=== PATIENT | female | born 1985 | race Caucasian/White ===

== ENCOUNTER → 2016-05-08 | Outpatient (CLI) | payer BC ==
[~2016-05-08] MED LIST: ACHYD1T PO; DCS100C PO; HYOS0.1217 PO; IBP800T PO; NAPR500T PO; ONDAN4ODT PO; PREN1TAB39 PO; SULF1TAB38 PO
--- OUTSIDE RECORDS SUMMARY | 2016-05-08 16:06 | XMS REPORT | Continuity of Care Document ---
Author Author [facility] Organization [facility] Address Unknown Phone Unavailable Allergies Active Description Code Type Severity Reaction Onset Reported/Identified Relationship to Patient Clinical Status Yes Penicillins [id number] Drug Allergy Unknown N/A 02/23/2008 Medications Problems Date Dx Coded Attending Type Code Diagnosis Diagnosed By 08/24/2011 Ot 644.13 THREAT LABOR NEC-ANTEPAR 09/06/2011 Ot 427.31 ATRIAL FIBRILLATION 09/06/2011 Ot 642.41 MILD/NOS PREECLAMP-DELIV 09/06/2011 Ot 648.62 CV DIS NEC-DELIVER W P/P 09/06/2011 Ot 654.21 PREV DELIVRY W/ OR W/O MENT ANT 09/06/2011 Ot V06.4 IAH-QJJJVP-UQERJ-RUBELLA 09/06/2011 Ot V27.0 DELIVER-SINGLE LIVEBORN 05/07/2012 Ot 558.9 NONINF GASTROENTERIT NEC 05/07/2012 Ot 599.0 URIN TRACT INFECTION NOS 05/07/2012 Ot 787.03 VOMITING ALONE 10/10/2014 RBANDIE DOWLING MD Ot 719.43 JOINT PAIN-FOREARM 10/10/2014 BRANDIE DOWLING MD Ot 727.04 RADIAL STYLOID TENOSYNOV 12/17/2014 REECE WELSH DO Ot M25.562 12/27/2014 REECE WELSH DO Ot M25.562 04/08/2015 REECE WELSH DO Ot M25.562 04/08/2015 REECE WELSH DO Ot M25.562 04/11/2015 GLORIA PEOPLES APRN Ot N28.1 04/21/2015 GLORIA PEOPLES APRN Ot N28.1 10/31/2015 REECE WELSH DO Ot M25.562 PAIN IN LEFT KNEE 10/31/2015 GLORIA PEOPLES APRN Ot N28.1 CYST OF KIDNEY, ACQUIRED 12/03/2015 REECE WELSH DO Ot M25.562 PAIN IN LEFT KNEE 12/03/2015 GLORIA PEOPLES APRN Ot N28.1 CYST OF KIDNEY, ACQUIRED 05/08/2016 REECE WELSH DO Ot M25.562 PAIN IN LEFT KNEE 05/08/2016 GLORIA PEOPLES APRN Ot N28.1 CYST OF KIDNEY, ACQUIRED Procedures Code Description Performed By Performed On 72.9 09/04/2011 74.1 09/04/2011 Results Encounters ACCT No. Visit Date/Time Discharge Status Pt. Type Provider Facility Loc./Unit Complaint [id number] 12/08/2014 14:31:00 2014 23:59:59 CLS Outpatient REECE WELSH DO [facility] RAD LT KNEE PAIN [id number] 10/10/2014 16:40:00 2014 17:04:00 DIS Emergency NITESH WARREN, BRANDIE Romo [facility] ER RIGHT WRIST SORENESS [id number] 05/08/2016 16:03:00 ACT Outpatient GLORIA PEOPLES APRN [facility] RAD HEAD TRAUMA [id number] 04/08/2015 10:45:00 ACT Outpatient GLORIA PEOPLES APRN [facility] RAD ABD PAIN [id number] 05/06/2012 23:41:00 Document Registration [id number] 09/04/2011 09:30:00 Document Registration [id number] 08/24/2011 11:42:00 Document Registration
--- NOTE | 2016-05-08 16:36 | Diagnostic Imaging Report ---
PROCEDURE: CT head without contrast. TECHNIQUE: Multiple contiguous axial images were obtained through the brain without the use of intravenous contrast. INDICATION: Far on playground with the left side of head 4 days prior. Severe headache with nausea and vomiting. Left ear pain. COMPARISON: None FINDINGS: There is no midline shift or mass effect. The ventricles and sulci are unremarkable. No evidence for acute intracranial hemorrhage, abnormal extra-axial fluid collections or cerebral edema is present. The basilar cisterns are unremarkable. The visualized paranasal sinuses and mastoid air cells are clear. The bony calvarium is intact. IMPRESSION: Negative appearing noncontrast CT of the head. Dictated by: Dictated on workstation # [id number]
== END ==
LOC: RAD 16:03
PROVIDERS: ATTEND Nurse Practitioner Family
DX: S09.90XA Unspecified injury of head, initial encounter (principal); R51 Headache; X58.XXXA Exposure to other specified factors, initial encounter; Y99.8 Other external cause status
CPT/HCPCS: 70450

== ENCOUNTER → 2017-02-08 | Outpatient (CLI) | payer BC ==
[~2017-02-08] MED LIST changes: +NAPR-1071 PO; -NAPR500T PO
--- NOTE | 2017-02-08 15:04 | Diagnostic Imaging Report ---
INDICATION: Left knee pain x4 weeks. Twisted while dancing. FINDINGS: Nonweightbearing images show joint space to be well preserved. Articulating surfaces are smooth. The patella is in good alignment with the trochlea. There are no fractures. No hypertrophic bony changes noted. There does appear to be some joint effusion. IMPRESSION: No bony abnormalities. Dictated by: Dictated on workstation # [id number]
== END ==
LOC: RAD 14:26
PROVIDERS: ATTEND Nurse Practitioner Family
DX: M25.562 Pain in left knee (principal); X50.1XXA Overexertion from prolonged static or awkward postures, initial encounter; Y93.41 Activity, dancing
CPT/HCPCS: 73562

== ENCOUNTER → 2017-02-15 | Outpatient (CLI) | payer BC ==
--- NOTE | 2017-02-15 19:14 | Diagnostic Imaging Report ---
EXAMINATION: Magnetic resonance imaging of the left knee without intravenous contrast DATE: 02/15/2017. COMPARISON: Left knee radiographs 02/08/2017. MRI left knee 12/08/2014. INDICATION: 32-year-old female, left knee pain. 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 TECHNIQUE: Multiplanar, multisequence non contrast enhanced MR imaging was accomplished. FINDINGS: MENISCI: The medial meniscus is intact. The lateral meniscus is intact. LIGAMENTS AND TENDONS: The anterior and posterior cruciate ligaments are intact. The medial collateral ligament is intact. The iliotibial band, mid third lateral capsular ligament, fibular collateral ligament, biceps femoris tendon and conjoined tendon are intact. The quadriceps tendon and patella ligament are intact. JOINT: There is a full-thickness cartilage defect of the lateral patellar facet cartilage measuring approximately 6 mm in transverse dimension and estimated at approximately 6 mm in craniocaudal dimension. There is a fissure of the cartilage of the median patellar ridge. The cartilage of the femoral trochlea is grossly intact. Medial and lateral compartment cartilage is grossly intact. There is no knee joint effusion, intra-articular body, or prominent synovitis. BONE: There is unremarkable bone marrow signal. Specifically, negative for fracture, osteomyelitis, osteonecrosis, or marrow replacing process. BURSAE AND SOFT TISSUES: There is minimal fluid in the popliteal fossa without sizable Orosco's cyst. IMPRESSION: 1. 6 x 6 mm full-thickness cartilage defect of the lateral patellar facet. No knee joint effusion, intra-articular body, or prominent synovitis. The cartilage defect is also seen on comparison MRI of 12/08/2014 and appears unchanged in extent. 2. Intact medial and lateral meniscus. 3. Intact anterior and posterior cruciate ligaments. Additional ligaments and tendons are intact. 4. No acute fracture or bone contusion. Dictated by: Dictated on workstation # [id number]
== END ==
LOC: RAD 18:08
PROVIDERS: ATTEND Nurse Practitioner Family
DX: S89.92XA Unspecified injury of left lower leg, initial encounter (principal); M94.8X8 Other specified disorders of cartilage, other site; X50.0XXA Overexertion from strenuous movement or load, initial encounter; Y93.41 Activity, dancing
CPT/HCPCS: 73721

== ENCOUNTER 2017-03-05 08:49 | Inpatient (IN) | payer BC ==
[2017-03-05] VITALS (7 sets, daily range): BP systolic 89–113; BP diastolic 72–86
[~2017-03-05] VITALS: Ht 170.2 cm; Wt 98.8 kg
--- OUTSIDE RECORDS SUMMARY | 2017-03-05 08:54 | XMS REPORT | Continuity of Care Document ---
Author Author [facility] Organization [facility] Address Unknown Phone Unavailable Allergies Active Description Code Type Severity Reaction Onset Reported/Identified Relationship to Patient Clinical Status Yes Penicillins [id number] Drug Allergy Unknown N/A 02/23/2008 Medications There is no data. Problems Date Dx Coded Attending Type Code Diagnosis Diagnosed By 08/24/2011 Ot 644.13 THREAT LABOR NEC-ANTEPAR 09/06/2011 Ot 427.31 ATRIAL FIBRILLATION 09/06/2011 Ot 642.41 MILD/NOS PREECLAMP-DELIV 09/06/2011 Ot 648.62 CV DIS NEC- DELIVER W P/P 09/06/2011 Ot 654.21 PREV DELIVRY W/ OR W/O MENT ANT 09/06/2011 Ot V06.4 VAC-MEASLE- MUMPS-RUBELLA 09/06/2011 Ot V27.0 DELIVER- SINGLE LIVEBORN 05/07/2012 Ot 558.9 NONINF GASTROENTERIT NEC 05/07/2012 Ot 599.0 URIN TRACT INFECTION NOS 05/07/2012 Ot 787.03 VOMITING ALONE 10/10/2014 NITESH WARREN, BRANDIE Romo Ot 719.43 JOINT PAIN-FOREARM 10/10/2014 BRANDIE DOWLING [...] APRN Ot N28.1 CYST OF KIDNEY, ACQUIRED 05/09/2016 GLORIA PEOPLES APRN Ot R51 HEADACHE 05/09/2016 GLORIA PEOPLES APRN Ot S09.90XA UNSPECIFIED INJURY OF HEAD, INITIAL ENCO 05/09/2016 GLORIA PEOPLES APRN Ot X58.XXXA EXPOSURE TO OTHER SPECIFIED FACTORS, INI 05/09/2016 GLORIA PEOPLES APRN Ot Y99.8 OTHER EXTERNAL CAUSE STATUS 05/11/2016 GLORIA PEOPLES COMMERCIAL INSULATOR Ot R51 HEADACHE 05/11/2016 GLORIA PEOPLES APRN Ot S09.90XA UNSPECIFIED INJURY OF HEAD, INITIAL ENCO 05/11/2016 GLORIA PEOPLES APRN Ot X58.XXXA EXPOSURE TO OTHER SPECIFIED FACTORS, INI 05/11/2016 GLORIA PEOPLES APRN Ot Y99.8 OTHER EXTERNAL CAUSE STATUS 05/14/2016 GLORIA PEOPLES APRN Ot R51 HEADACHE 05/14/2016 GLORIA PEOPLES APRN Ot S09.90XA UNSPECIFIED INJURY OF HEAD, INITIAL ENCO 05/14/2016 GLORIA PEOPLES APRN Ot X58.XXXA EXPOSURE TO OTHER SPECIFIED FACTORS, INI 05/14/2016 GLORIA PEOPLSE APRN Ot Y99.8 OTHER EXTERNAL CAUSE STATUS 05/14/2016 GLORIA PEOPLES COMMERCIAL INSULATOR Ot R51 HEADACHE 05/14/2016 GLORIA PEOPLES APRN Ot S09.90XA UNSPECIFIED INJURY OF HEAD, INITIAL ENCO 05/14/2016 GLORIA PEOPLES APRN Ot X58.XXXA EXPOSURE TO OTHER SPECIFIED FACTORS, INI 05/14/2016 GLORIA PEOPLES APRN Ot Y99.8 OTHER EXTERNAL CAUSE STATUS 05/14/2016 GLORIA PEOPLES APRN Ot R51 HEADACHE 05/14/2016 GLORIA PEOPLES APRN Ot S09.90XA UNSPECIFIED INJURY OF HEAD, INITIAL ENCO 05/14/2016 GLORIA PEOPLES APRN Ot X58.XXXA EXPOSURE TO OTHER SPECIFIED FACTORS, INI 05/14/2016 GLORIA PEOPLES COMMERCIAL INSULATOR Ot Y99.8 OTHER EXTERNAL CAUSE STATUS 05/30/2016 GLORIA PEOPLES COMMERCIAL INSULATOR Ot R51 HEADACHE 05/30/2016 GLORIA PEOPLES COMMERCIAL INSULATOR Ot S09.90XA UNSPECIFIED INJURY OF HEAD, INITIAL ENCO 05/30/2016 GLORIA PEOPLES APRN Ot X58.XXXA EXPOSURE TO OTHER SPECIFIED FACTORS, INI 05/30/2016 GLORIA PEOPLES APRN Ot Y99.8 OTHER EXTERNAL CAUSE STATUS 05/31/2016 REECE WELSH DO Ot M25.562 PAIN IN LEFT KNEE 05/31/2016 GLORIA PEOPLES APRN Ot N28.1 CYST OF KIDNEY, ACQUIRED 05/31/2016 GLORIA PEOPLES APRN Ot R51 HEADACHE 05/31/2016 GLORIA PEOPLES APRN Ot S09.90XA UNSPECIFIED INJURY OF HEAD, INITIAL ENCO 05/31/2016 GLORIA PEOPLES APRN Ot X58.XXXA EXPOSURE TO OTHER SPECIFIED FACTORS, INI 05/31/2016 GLORIA PEOPLES APRN Ot Y99.8 OTHER EXTERNAL CAUSE STATUS 02/17/2017 MISSY YAP Ot M94.8X8 OTHER SPECIFIED DISORDERS OF CARTILAGE, 02/17/2017 MISSY YAP Ot S89.92XA UNSPECIFIED INJURY OF LEFT LOWER LEG, IN 02/17/2017 MISSY YAP Ot X50.0XXA OVEREXERTION FROM STRENUOUS MOVEMENT OR 02/17/2017 MISSY YAP Ot Y93.41 ACTIVITY, DANCING 02/20/2017 MISSY YAP Ot M25.562 PAIN IN LEFT KNEE 02/20/2017 MISSY YAP Ot X50.1XXA OVEREXERTION FROM PROLONGED STATIC OR AW 02/20/2017 MISSY YAP Ot Y93.41 ACTIVITY, DANCING Procedures Code Description Performed By Performed On 72.9 09/04/2011 74.1 09/04/2011 Results There is no data. Encounters ACCT No. Visit Date/Time Discharge Status Pt. Type Provider Facility Loc./Unit Complaint [id number] 02/15/2017 18:08:00 02/15/2017 23:59:59 CLS Outpatient MISSY YAP [facility] RAD KNEE PAIN [id number] 02/08/2017 14:26:00 02/08/2017 23:59:59 CLS Outpatient MISSY YAP [facility] RAD L KNEE PAIN [id number] 05/08/2016 16:03:00 05/08/2016 23:59:59 CLS Outpatient GLORIA PEOPLES APRN [facility] RAD HEAD TRAUMA [id number] 04/08/2015 10:45:00 04/08/2015 23:59:59 CLS Outpatient GLORIA PEOPLES COMMERCIAL INSULATOR [facility] RAD ABD PAIN [id number] 12/08/2014 14:31:00 12/08/2014 23:59:59 CLS Outpatient REECE WELSH DO [facility] RAD LT KNEE PAIN [id number] 10/10/2014 16:40:00 10/10/2014 17:04:00 DIS Emergency NITESH WARREN, BRANDIE Romo [facility] ER RIGHT WRIST SORENESS [id number] 05/06/2012 23:41:00 Document Registration [id number] 09/04/2011 09:30:00 Document Registration [id number] 08/24/2011 11:42:00 Document Registration
[2017-03-05 09:15] LABS: BASOPHILS # (AUTO) 0.1 10^3/uL (0.0-0.1); BASOPHILS % (AUTO) 0 % (0-10); EOSINOPHILS # (AUTO) 0.3 10^3/uL (0.0-0.3); EOSINOPHILS % (AUTO) 2 % (0-10); HEMATOCRIT 50 % (35-52); LYMPHOCYTES # (AUTO) 4.1 X 10^3 (1.0-4.0); LYMPHOCYTES % (AUTO) 27 % (12-44); MEAN CORPUSCULAR HEMOGLOBIN 33 PG (25-34); MEAN CORPUSCULAR HGB CONC 36 G/DL (32-36); MEAN CORPUSCULAR VOLUME 90 FL (80-99); MEAN PLATELET VOLUME 10.1 FL (7.4-10.4); MONOCYTES # (AUTO) 1.3 X 10^3 (0.0-1.0); MONOCYTES % (AUTO) 8 % (0-12); NEUTROPHILS # (AUTO) 9.6 X 10^3 (1.8-7.8); NEUTROPHILS % (AUTO) 63 % (42-75); PLATELET COUNT 452 10^3/uL (130-400); RED BLOOD COUNT 5.53 10^6/uL (4.35-5.85); RED CELL DISTRIBUTION WIDTH 12.1 % (10.0-14.5); WHITE BLOOD COUNT 15.2 10^3/uL (4.3-11.0)
[2017-03-05] MEDS ORDERED: DILTIAZEM 25 MG/5 ML INJ (CARDIZEM) VIAL IVP ONE (09:15)
[2017-03-05] MEDS ORDERED: DILTIAZEM IV FOR DRIP 125 MG in NS (IVPB) 100 ML IV SCH (09:15)
[2017-03-05 09:28] LABS: INR 1.1 (0.8-1.4); PROTHROMBIN TIME PATIENT 14.1 SEC (12.2-14.7)
[2017-03-05 09:38] LABS: ALBUMIN 4.9 GM/DL (3.2-4.5); CALCIUM 9.9 MG/DL (8.5-10.1); CREATININE SERUM 1.13 MG/DL (0.60-1.30); MAGNESIUM 2.2 MG/DL (1.8-2.4); POTASSIUM 4.2 MMOL/L (3.6-5.0); TOTAL PROTEIN 8.4 GM/DL (6.4-8.2)
[2017-03-05 09:39] LABS: BAND NEUTROPHILS 1 %; BASOPHILS % (MANUAL) 0 %; EOSINOPHILS % (MANUAL) 1 %; LYMPHOCYTES % (MANUAL) 28 %; MONOCYTES % (MANUAL) 11 %; NEUTROPHILS % (MANUAL) 59 %; RBC MORPH NORMAL
--- NOTE | 2017-03-05 09:39 | Diagnostic Imaging Report ---
CLINICAL INDICATION: Patient with shortness of air, palpitations since yesterday afternoon. EXAM: Portable chest x-ray, upright view. COMPARISON: None. FINDINGS: There are ill-defined borders of the right heart border and slightly involving the left heart border. There is a slight increase in airspace opacities and blurring of the bilateral perihilar regions, right side more than the left. There is no pleural effusion or pneumothorax. The pulmonary vasculature and cardiac silhouette are within normal limits. The bones show no significant abnormality. IMPRESSION: 1. There is loss of right and left heart border shadows with increased perihilar opacities. These findings may be related to lung infiltrates or atelectasis. Chest x-rays, PA and lateral views, with good inspiratory effort would be suggested for better evaluation. 2. Otherwise, the remainder of this exam is unremarkable. Dictated by: Dictated on workstation # [id number]
[2017-03-05 09:40] LABS: MYOGLOBIN SERUM 72.6 NG/ML (10.0-92.0)
[2017-03-05 09:52] LABS: TSH (THYROID ANALYZER) 5.23 UIU/ML (0.35-4.94)
[2017-03-05 10:27] LABS: FREE T4 (FREE THYROXINE) 0.91 NG/DL (0.70-1.48)
--- NOTE | 2017-03-05 10:49 | Diagnostic Imaging Report ---
INDICATION: Possible infiltrates. Followup. COMPARISON: Earlier the same day FINDINGS: Frontal and lateral views of the chest demonstrate normal heart size and pulmonary vascularity. The lungs are clear. There are no signs of infiltrate, pleural effusions or pneumothoraces. The visualized osseous structures show no acute abnormalities. IMPRESSION: 1. No acute process. Questionable pericardial infiltrates are likely artifact and related to mild pectus deformity. Dictated by: Dictated on workstation # [id number]
[2017-03-05] MEDS ORDERED: NS IV 1000 ML 1,000 ML IV ONE (11:17)
--- NOTE | 2017-03-05 11:19 | ED Cardiac General ---
History of Present Illness General Chief Complaint: Cardiac/General Problems Stated Complaint: IRREG HEARTBEAT,WEAKNESS Nursing Triage Note: pt reports palpitations and soa since yesterday at 1600. pt reports she is worse since 1999 yesterday. pt reports she went to [facility] [address] and was referred here. pt reports no cardiac hx or previous similar episodes. Source: patient Exam Limitations: no limitations History of Present Illness Time seen by provider: 08:55 Initial Comments This 32-year-old woman presents to the emergency room with rapid heart rate, fatigue, lightheadedness, and shortness of breath that started last night. She had some mild chest discomfort that she identified as indigestion last night. She has atrial flutter with rapid ventricular response on the monitor. She has no history of arrhythmia or other cardiac abnormalities. Allergies and Home Medications Allergies Coded Allergies: Penicillins (Verified Allergy, Unknown, 02/23/08) Home Medications No Active Prescriptions or Reported Meds Review of Systems Constitutional: see HPI EENTM: No Symptoms Reported Respiratory: See HPI Cardiovascular: See HPI Gastrointestinal: No Symptoms Reported Genitourinary: No Symptoms Reported Musculoskeletal: no symptoms reported Skin: no symptoms reported Psychiatric/Neurological: No Symptoms Reported Endocrine: No Symptoms Reported Hematologic/Lymphatic: No Symptoms Reported Past Xnpqxxk-Ghtjck-Mmumoi Hx Patient Social History Alcohol Use: Denies Use Recreational Drug Use: No Smoking Status: Never a Smoker 2nd Hand Smoke Exposure: No Recent Foreign Travel: No Contact w/Someone Who Travel: No Recent Infectious Disease Expo: No Recent Hopitalizations: No (Childbirth 2007) Seasonal Allergies Seasonal Allergies: No Surgeries History of Surgeries: Yes ( section 2007) Surgeries: Section, Orthopedic Respiratory History of Respiratory Disorde: No Cardiovascular History of Cardiac Disorders: Yes (PRE-ECLAMPSIA WITH BOTH PREGNANCIES) Neurological History of Neurological Disord: No Reproductive System Hx Reproductive Disorders: No Sexually Transmitted Disease: No Genitourinary History of Genitourinary Disor: No Gastrointestinal History of Gastrointestinal Di: No Musculoskeletal History of Musculoskeletal Dis: No Endocrine History of Endocrine Disorders: No HEENT History of HEENT Disorders: No Cancer History of Cancer: No Psychosocial History of Psychiatric Problem: No Integumentary History of Skin or Integumenta: No Blood Transfusions History of Blood Disorders: No Physical Exam Vital Signs Vital Sign - Last 12Hours 03/05/17 03/05/17 09:04 09:40 Temp 97.4 Pulse 140 Resp 10 B/P (MAP) 122/78 (93) Pulse Ox 100 O2 Delivery Room Air Capillary Refill : Less Than 3 Seconds General Appearance: No Apparent Distress, WD/WN HEENT: PERRL/EOMI, Normal ENT Inspection Neck: Normal Inspection Respiratory: Lungs Clear, Normal Breath Sounds, No Accessory Muscle Use, No Respiratory Distress Cardiovascular: No Edema, No Murmur, Irregularly Irregular, Tachycardia Gastrointestinal: Normal Bowel Sounds, Non Tender, Soft Extremity: Normal Inspection, No Pedal Edema Neurologic/Psychiatric: Alert, Oriented x3, No Motor/Sensory Deficits, Normal 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, 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 as Tested Skin: Normal Color, Warm/Dry Progress/Results/Core Measures Results/Orders Lab Results Laboratory Tests Test 03/05/17 08:29 03/05/17 08:59 Range/Units C-Reactive Protein High Sensitivity 0.18 0.00-0.50 MG/DL White Blood Count 15.2 H 4.3-11.0 10^3/uL Red Blood Count 5.53 4.35-5.85 10^6/uL Hemoglobin 18.0 H 11.5-16.0 G/DL Hematocrit 50 35-52 % Mean Corpuscular Volume 90 80-99 FL Mean Corpuscular Hemoglobin 33 25-34 PG Mean Corpuscular Hemoglobin Concent 36 32-36 G/DL Red Cell Distribution Width 12.1 10.0-14.5 % Platelet Count 452 H 130-400 10^3/uL Mean Platelet Volume 10.1 7.4-10.4 FL Neutrophils (%) (Auto) 63 42-75 % Lymphocytes (%) (Auto) 27 12-44 % Monocytes (%) (Auto) 8 0-12 % Eosinophils (%) (Auto) 2 0-10 % Basophils (%) (Auto) 0 0-10 % Neutrophils # (Auto) 9.6 H 1.8-7.8 X 10^3 Lymphocytes # (Auto) 4.1 H 1.0-4.0 X 10^3 Monocytes # (Auto) 1.3 H 0.0-1.0 X 10^3 Eosinophils # (Auto) 0.3 0.0-0.3 10^3/uL Basophils # (Auto) 0.1 0.0-0.1 10^3/uL Neutrophils % (Manual) 59 % Lymphocytes % (Manual) 28 % Monocytes % (Manual) 11 % Eosinophils % (Manual) 1 % Basophils % (Manual) 0 % Band Neutrophils 1 % Blood Morphology Comment NORMAL Prothrombin Time 14.1 12.2-14.7 SEC INR Comment 1.1 0.8-1.4 Activated Partial Thromboplast Time 31 24-35 SEC Sodium Level 141 135-145 MMOL/L Potassium Level 4.2 3.6-5.0 MMOL/L Chloride Level 103 98-107 MMOL/L Carbon Dioxide Level 22 21-32 MMOL/L Anion Gap 16 H 5-14 MMOL/L Blood Urea Nitrogen 16 7-18 MG/DL Creatinine 1.13 0.60-1.30 MG/DL Estimat Glomerular Filtration Rate 56 BUN/Creatinine Ratio 14 Glucose Level 111 H 70-105 MG/DL Calcium Level 9.9 8.5-10.1 MG/DL Magnesium Level 2.2 1.8-2.4 MG/DL Total Bilirubin 1.0 0.1-1.0 MG/DL Aspartate Amino Transf (AST/SGOT) 23 5-34 U/L Alanine Aminotransferase (ALT/SGPT) 23 0-55 U/L Alkaline Phosphatase 65 40-136 U/L Myoglobin 72.6 10.0-92.0 NG/ML Troponin I 0.57 *H <0.30 NG/ML Total Protein 8.4 H 6.4-8.2 GM/DL Albumin 4.9 H 3.2-4.5 GM/DL Free Thyroxine 0.91 0.70-1.48 NG/DL TSH [place] Testing 5.23 H 0.35-4.94 UIU/ML Serum Test, Qualitative NEGATIVE NEGATIVE My Orders Orders - SAURABH GILL MD Cbc With Automated Diff (03/05/17 09:05) Magnesium (03/05/17 09:05) Chest 1 View, Ap/Pa Only (03/05/17 09:05) Ekg Tracing (03/05/17 09:05) Cardiac Profile 1 (03/05/17 09:05) Comprehensive Metabolic Panel (03/05/17 09:05) Myoglobin Serum (03/05/17 09:05) Protime With Inr (03/05/17 09:05) Partial Thromboplastin Time (03/05/17 09:05) O2 (03/05/17 09:05) Monitor-Rhythm Ecg Trace Only (03/05/17 09:05) Lipid Panel (03/06/17 06:00) Saline Lock/Iv-Start (03/05/17 09:05) Thyroid Analyzer (03/05/17 09:05) Ns (Ivpb) (Sodium C... W/Diltiazem Iv Fo (03/05/17 09:15) Diltiazem Injection (Cardizem Injection) (03/05/17 09:15) Hcg,Qualitative Serum (03/05/17 09:16) Manual Differential (03/05/17 08:59) Free T4 (Free Thyroxine) (03/05/17 08:59) Chest Pa/Lat (2 View) (03/05/17 10:29) Hs C Reactive Protein (03/05/17 10:29) Ns Iv 1000 Ml (Sodium Chloride 0.9%) (03/05/17 11:17) Digoxin Injection (Lanoxin Injection) (03/05/17 12:00) Apixaban Tablet (Eliquis Tablet) (03/05/17 12:00) Medications Given in ED Current Medications Medications Dose Ordered Sig/Paige Route Start Time Stop Time Status Last Admin Dose Admin Apixaban 5 mg ONCE ONCE PO 03/05/17 12:00 03/05/17 12:01 DC 03/05/17 12:42 5 MG Diltiazem HCl 10 mg ONCE ONCE IVP 03/05/17 09:15 03/05/17 09:16 DC 03/05/17 09:37 10 MG Sodium Chloride 1,000 ml @ 0 mls/hr Q0M ONCE IV 03/05/17 11:17 03/05/17 11:19 DC 03/05/17 11:54 0 MLS/HR Vital Signs/I&O Vital Sign - Last 12Hours 03/05/17 03/05/17 09:04 09:40 Temp 97.4 98.0 Pulse 140 162 Resp 10 12 B/P (MAP) 122/78 (93) 144/89 Pulse Ox 100 94 O2 Delivery Room Air Blood Pressure Mean: 107 Progress Note #1: Time: 11:29 Progress Note Cardizem bolus followed by a drip were administered. Drip has been titrated up to 20 mg per hour. Patient still remains tachycardic with heart rate in the 140s. Systolic blood pressure is 110. Workup demonstrated leukocytosis and questionable infiltrate on chest x-ray. A repeat two-view chest x-ray was obtained at the recommendation of the radiologist. No infiltrates were appreciated on the two-view. A CRP was also added to help rule out infection. CRP was unremarkable. At present I am awaiting calls back from Dr. Adair and Dr. Pacheco. Progress Note #2: Time: 12:[address] Adair has been to the emergency room to assess the patient. He requested Brendan 0.5 mg IV be administered as well as Eliquis 5 mg by mouth. Patient will be admitted to the ICU. Cardizem drip is to be continued. Progress Note #3: Time: 13:04 Progress Note Patient converted to a junctional rhythm with a rate of 69. Systolic blood pressures dropped into the 90s. Case was reviewed again with Dr. Adair who recommends stopping the Cardizem drip and administering Cardizem cd 240 mg now and daily. Eliquis has been administered. Patient will be admitted to the cardiac step down unit. Digoxin 0.5 mg had been ordered previously but that will order was canceled and patient converted to a junctional rhythm. ECG Initial ECG Impression Date: Mar 05, 2017 Initial ECG Impression Time: 08:59 Initial ECG Rate: 144 Initial ECG Rhythm: A Fib/Flutter Comment Atrial flutter with RVR EKG : EKG Time: 12:48 Rate: 69 Comment Junctional rhythm with no ST elevation or depression. This is a change from prior atrial flutter. Diagnostic Imaging Diagonstic Imaging: Xray Plain Films/CT/US/NM/MRI: chest Comments NAME: DEL HERNANDEZ [facility] REC#: [id number] PT STATUS: REG ER : 1985 PHYSICIAN: SAURABH GILL MD ADMIT DATE: 03/05/17/ER Draft Date of Exam:03/05/17 CHEST 1 VIEW, AP/PA ONLY CLINICAL INDICATION: Patient with shortness of air, palpitations since yesterday afternoon. EXAM: Portable chest x-ray, upright view. COMPARISON: None. FINDINGS: There are ill-defined borders of the right heart border and slightly involving the left heart border. There is a slight increase in airspace opacities and blurring of the bilateral perihilar regions, right side more than the left. There is no pleural effusion or pneumothorax. The pulmonary vasculature and cardiac silhouette are within normal limits. The bones show no significant abnormality. IMPRESSION: 1. There is loss of right and left heart border shadows with increased perihilar opacities. These findings may be related to lung infiltrates or atelectasis. Chest x-rays, PA and lateral views, with good inspiratory effort would be suggested for better evaluation. 2. Otherwise, the remainder of this exam is unremarkable. Dictated on workstation # [id number] Dict: 03/05/17 0927 Trans: 03/05/17 0938 HOMAR [id number] Interpreted by: ENRIQUE GRIGGS MD Diagonstic Imaging: Xray Plain Films/CT/US/NM/MRI: chest Comments NAME: DEL HERNANDEZ [facility] REC#: [id number] PT STATUS: REG ER : 1985 PHYSICIAN: SAURABH GILL MD ADMIT DATE: 03/05/17/ER Draft Date of Exam:03/05/17 CHEST PA/LAT (2 VIEW) INDICATION: Possible infiltrates. Followup. COMPARISON: Earlier the same day FINDINGS: Frontal and lateral views of the chest demonstrate normal heart size and pulmonary vascularity. The lungs are clear. There are no signs of infiltrate, pleural effusions or pneumothoraces. The visualized osseous structures show no acute abnormalities. IMPRESSION: 1. No acute process. Questionable pericardial infiltrates are likely artifact and related to mild pectus deformity. Dictated on workstation # [id number] Dict: 03/05/17 1042 Trans: 03/05/17 1048 SELIN [id number] Interpreted by: TENISHA STEVENS MD Departure Communication (Admissions) Time/Spoke to Admitting Phy: 11:17 Communication Giovany Impression Impression: Primary Impression: New onset atrial flutter Additional Impressions: Atrial flutter with rapid ventricular response Elevated troponin Disposition: ADMITTED INPATIENT Condition: Improved Admissions Decision to Admit Reason: Admit from ER (General) Decision to Admit/Date: Mar 05, 2017 Time/Decision to Admit Time: 09:00 Departure-Patient Inst. Referrals: MARLENE PACHECO MD (PCP/Family) Primary Care Physician Scripts No Active Prescriptions or Reported Meds SAURABH GILL MD Mar 05, 2017 11:19
[2017-03-05] MEDS ORDERED: APIXABAN 5 MG (ELIQUIS) TABLET PO ONE (12:00)
[2017-03-05] MEDS ORDERED: DIGOXIN 0.25 MG/ML (LANOXIN) 2 ML AMP IV ONE (12:00)
--- OUTSIDE RECORDS SUMMARY | 2017-03-05 12:16 | XMS REPORT | Continuity of Care Document ---
Author Author [facility] Organization [facility] Address Unknown Phone Unavailable Allergies Active Description Code Type Severity Reaction Onset Reported/Identified Relationship to Patient Clinical Status Yes Penicillins [id number] Drug Allergy Unknown N/A 02/23/2008 Medications There [...] OTHER EXTERNAL CAUSE STATUS 05/11/2016 GLORIA PEOPLES DOCUMENTATION WRITER Ot R51 HEADACHE 05/11/2016 GLORIA PEOPLES APRN [...] OTHER EXTERNAL CAUSE STATUS 05/14/2016 GLORIA PEOPLES DOCUMENTATION WRITER Ot R51 HEADACHE 05/14/2016 GLORIA PEOPLES APRN Ot S09.90XA UNSPECIFIED INJURY OF HEAD, INITIAL ENCO 05/14/2016 GLORIA PEOPLES APRN Ot X58.XXXA EXPOSURE TO OTHER SPECIFIED FACTORS, INI 05/14/2016 GLORIA PEOPELS APRN Ot Y99.8 OTHER EXTERNAL CAUSE STATUS 05/14/2016 GLORIA PEOPLES APRN Ot R51 HEADACHE 05/14/2016 GLORIA PEOPLES APRN Ot S09.90XA UNSPECIFIED INJURY OF HEAD, INITIAL ENCO 05/14/2016 GLORIA PEOPLES APRN Ot X58.XXXA EXPOSURE TO OTHER SPECIFIED FACTORS, INI 05/14/2016 GLORIA PEOPLES DOCUMENTATION WRITER Ot Y99.8 OTHER EXTERNAL CAUSE STATUS 05/30/2016 GLORIA PEOPLES DOCUMENTATION WRITER Ot R51 HEADACHE 05/30/2016 GLORIA PEOPLES APRN Ot S09.90XA UNSPECIFIED INJURY [...] Performed On 72.9 09/04/2011 74.1 09/04/2011 Results Test Result Range Serum or plasma C reactive protein measurement (mass/volume) - 03/05/17 08:29 Serum or plasma C reactive protein measurement (mass/volume) 0.18 mg /dL 0.00-0.50 Complete blood count (CBC) with automated white blood cell (WBC) differential - 03/05/17 08:59 Blood leukocytes automated count (number/volume) 15.2 10*3/uL 4.3-11.0 Blood erythrocytes automated count (number/volume) 5.53 10*6/uL 4.35-5.85 Venous blood hemoglobin measurement (mass/volume) 18.0 g/dL 11.5-16.0 Blood hematocrit (volume fraction) 50 % 35-52 Automated erythrocyte mean corpuscular volume 90 [foz_us] 80-99 Automated erythrocyte mean corpuscular hemoglobin (mass per erythrocyte) 33 pg 25-34 Automated erythrocyte mean corpuscular hemoglobin concentration measurement ( mass/volume) 36 g/dL 32-36 Automated erythrocyte distribution width ratio 12.1 % 10.0-14.5 Automated blood platelet count (count/volume) 452 10*3/uL 130-400 Automated blood platelet mean volume measurement 10.1 [foz_us] 7.4-10.4 Automated blood neutrophils/100 leukocytes 63 % 42-75 Automated blood lymphocytes/100 leukocytes 27 % 12-44 Blood monocytes/100 leukocytes 8 % 0-12 Automated blood eosinophils/100 leukocytes 2 % 0-10 Automated blood basophils/100 leukocytes 0 % 0-10 Blood neutrophils automated count (number/volume) 9.6 10*3 1.8-7.8 Blood lymphocytes automated count (number/volume) 4.1 10*3 1.0-4.0 Blood monocytes automated count (number/volume) 1.3 10*3 0.0-1.0 Automated eosinophil count 0.3 10*3/uL 0.0-0.3 Automated blood basophil count (count/volume) 0.1 10*3/uL 0.0-0.1 Serum or plasma choriogonadotropin ( test) detection - 03/05/17 08:59 Serum or plasma choriogonadotropin ( test) detection NEGATIVE NEGATIVE PT panel in platelet poor plasma by coagulation assay - 03/05/17 08:59 Prothrombin time (PT) in platelet poor plasma by coagulation assay 14.1 s 12.2-14.7 INR in platelet poor plasma or blood by coagulation assay 1.1 0.8-1.4 Activated partial thromboplastin time (aPTT) in platelet poor plasma bycoagulation assay - 03/05/17 08:59 Activated partial thromboplastin time (aPTT) in platelet poor plasma bycoagulation assay 31 s 24-35 Comprehensive metabolic panel - 03/05/17 08:59 Serum or plasma sodium measurement (moles/volume) 141 mmol/L 135-145 Serum or plasma potassium measurement (moles/volume) 4.2 mmol/L 3.6-5.0 Serum or plasma chloride measurement (moles/volume) 103 mmol/L 98-107 Carbon dioxide 22 mmol/L 21-32 Serum or plasma anion gap determination (moles/volume) 16 mmol/L 5-14 Serum or plasma urea nitrogen measurement (mass/volume) 16 mg/dL 7-18 Serum or plasma creatinine measurement (mass/volume) 1.13 mg/dL 0.60-1.30 Serum or plasma urea nitrogen/creatinine mass ratio 14 NRG Serum or plasma creatinine measurement with calculation of estimated glomerular filtration rate 56 NRG Serum or plasma glucose measurement (mass/volume) 111 mg/dL 70-105 Serum or plasma calcium measurement (mass/volume) 9.9 mg/dL 8.5-10.1 Serum or plasma total bilirubin measurement (mass/volume) 1.0 mg/dL 0.1-1.0 Serum or plasma alkaline phosphatase measurement (enzymatic activity/volume) 65 U/L 40-136 Serum or plasma aspartate aminotransferase measurement (enzymatic activity/ volume) 23 U/L 5-34 Serum or plasma alanine aminotransferase measurement (enzymatic activity/volume ) 23 U/L 0-55 Serum or plasma protein measurement (mass/volume) 8.4 g/dL 6.4-8.2 Serum or plasma albumin measurement (mass/volume) 4.9 g/dL 3.2-4.5 Magnesium - 03/05/17 08:59 Magnesium 2.2 mg/dL 1.8-2.4 Blood manual differential performed detection - 03/05/17 08:59 Blood monocytes/100 leukocytes 11 % NRG Manual blood segmented neutrophils/100 leukocytes 59 % NRG Blood band neutrophils/100 leukocytes 1 % NRG Manual blood lymphocytes/100 leukocytes 28 % NRG Manual eosinophils/100 leukocytes in nose 1 % NRG Manual blood basophils/100 leukocytes 0 % NRG Blood erythrocyte morphology finding identification NORMAL NRG Serum or plasma troponin i.cardiac measurement (mass/volume) - 03/05/17 08:59 Serum or plasma troponin i.cardiac measurement (mass/volume) 0.57 ng /mL <0.30 Serum or plasma thyroxine (T4) free measurement (mass/volume) - 03/05/17 08:59 Serum or plasma thyroxine (T4) free measurement (mass/volume) 0.91 ng/dL 0.70-1.48 Myoglobin, serum - 03/05/17 08:59 Myoglobin, serum 72.6 ng/mL 10.0-92.0 Serum or plasma thyrotropin measurement by detection limit <=0.05 miu/l (units/ volume) - 03/05/17 08:59 Serum or plasma thyrotropin measurement by detection limit <=0.05 miu/l (units/ volume) 5.23 u[iU]/mL 0.35-4.94 Encounters ACCT No. Visit Date/Time Discharge Status Pt. Type Provider Facility Loc./Unit Complaint [id number] 02/15/2017 18:08:00 02/15/2017 23:59:59 CLS Outpatient MISSY YAP [facility] RAD KNEE PAIN [id number] 02/08/2017 14:26:00 02/08/2017 23:59:59 CLS Outpatient MISSY YAP [facility] RAD L KNEE PAIN [id number] 05/08/2016 16:03:00 05/08/2016 23:59:59 CLS Outpatient GLORIA PEOPLES APRN [facility] RAD HEAD TRAUMA [id number] 04/08/2015 10:45:00 04/08/2015 23:59:59 CLS Outpatient GLORIA PEOPLES APRN [facility] RAD ABD PAIN [id number] 12/08/2014 14:31:00 12/08/2014 23:59:59 CLS Outpatient REECE WELSH DO [facility] RAD LT KNEE PAIN [id number] 10/10/2014 16:40:00 10/10/2014 17:04:00 DIS Emergency NITESH WARREN, BRANDIE Romo [facility] ER RIGHT WRIST SORENESS [id number] 03/05/2017 09:18:00 Document Registration [id number] 05/06/2012 23:41:00 Document Registration [id number] 09/04/2011 09:30:00 Document Registration [id number] 08/24/2011 11:42:00 Document Registration
[2017-03-05] MEDS ORDERED: DILTIAZEM 300 MG (CARDIZEM CD) CAP PO SCH (13:00)
[2017-03-05] MEDS ORDERED: DILTIAZEM 240 MG (CARDIZEM CD) CAP PO ONE (13:15)
--- NOTE | 2017-03-05 13:37 | Cardiology History & Physical ---
HPI-Cardiology Cardiology H&P Date of Admission 03/05/17 Primary Care Physician Nilda Pacheco MD Attending Physician Kortney Adair MD, MA FACP [facility] Consulting Physician [facility] 32 yo woman who developed palpitations consisting of a feeling of rapid heart beat last night. She noted malaise and exertional shortness of breath. She did not have any chest pain. She waited overnight and came to the ER this am and was found to be in A Fl with RVR. Symptoms of palp and shortness of breath improved with iv dilt. Never had any cp. Denies leg swelling or syncope Review of Systems-Cardiology Review of Systems Constitutional: As described under HPI Eyes: No vision change Ears/Nose/Throat: No ear discharge, No nasal drainage, No recent hearing loss Respiratory: As described under HPI Gastrointestinal: No constipation, No diarrhea, No nausea, No vomiting Genitourinary: No dysuria, No hematuria, No urine frequency changes Musculoskeletal: No back pain, No joint pain Skin: No rash, No ulcerations Psychiatric/Neurological: No seizure, No focal weakness, No syncope Hematologic: No bleeding abnormalities [id number] Hx Patient Social History Alcohol Use: Denies Use Recreational Drug Use: No Smoking Status: Never a Smoker 2nd Hand Smoke Exposure: No Recent Foreign Travel: No Recent Infectious Disease Expo: No Past Medical History PMH As described under Assessment. Family Medical History Family Medical History: She does not report fam h/o of early CAD or SCD Allergies and Home Medications Allergies Coded Allergies: Penicillins (Verified Allergy, Unknown, 02/23/08) Home Medications No Active Prescriptions or Reported Meds Physical Exam-Cardiology Physical Exam Vital Signs/I&O Vital Sign - Last 12Hours 03/05/17 03/05/17 09:04 09:40 Temp 97.4 98.0 Pulse 140 162 Resp 10 12 B/P (MAP) 122/78 (93) 144/89 Pulse Ox 100 94 O2 Delivery Room Air Capillary Refill : Less Than 3 Seconds Constitutional: AAO x 3, well-developed, well-nourished HEENT: EOMI, hearing is well preserved, No xanthelasmas are seen Neck: carotid pulses are 2 + bilaterally, with good upstrokes Respiratory: No accessory muscle use, lungs clear to percussion Cardiovascular: regular rate-rhythm, tachycardia, S1 and S2, systolic murmur ( faint ALAINA at card base) Gastrointestinal: No tender, soft, No guarding, No rebound, audible bowel sounds Extremities: No clubbing, No cyanosis, No significant edema Neurologic/Psychiatric: oriented x 3, grossly intact, power is 5/5 both on sides Skin: No rash on exposed areas, No ulcerations on exposed areas Data Review Labs Laboratory Tests 03/05/17 08:29: C-Reactive Protein High Sensitivity 0.18 03/05/17 08:59: White Blood Count 15.2H, Red Blood Count 5.53, Hemoglobin 18.0H, Hematocrit 50, Mean Corpuscular Volume 90, Mean Corpuscular Hemoglobin 33, Mean Corpuscular Hemoglobin Concent 36, Red Cell Distribution Width 12.1, Platelet Count 452H, Mean Platelet Volume 10.1, Neutrophils (%) (Auto) 63, Lymphocytes (%) (Auto) 27 , Monocytes (%) (Auto) 8, Eosinophils (%) (Auto) 2, Basophils (%) (Auto) 0, Neutrophils # (Auto) 9.6H, Lymphocytes # (Auto) 4.1H, Monocytes # (Auto) 1.3H, Eosinophils # (Auto) 0.3, Basophils # (Auto) 0.1, Neutrophils % (Manual) 59, Lymphocytes % (Manual) 28, Monocytes % (Manual) 11, Eosinophils % (Manual) 1, Basophils % (Manual) 0, Band Neutrophils 1, Blood Morphology Comment NORMAL, Prothrombin Time 14.1, INR Comment 1.1, Activated Partial Thromboplast Time 31, Sodium Level 141, Potassium Level 4.2, Chloride Level 103, Carbon Dioxide Level 22, Anion Gap 16H, Blood Urea Nitrogen 16, Creatinine 1.13, Estimat Glomerular Filtration Rate 56, BUN/Creatinine Ratio 14, Glucose Level 111H, Calcium Level 9.9, Magnesium Level 2.2, Total Bilirubin 1.0, Aspartate Amino Transf (AST/SGOT ) 23, Alanine Aminotransferase (ALT/SGPT) 23, Alkaline Phosphatase 65, Myoglobin 72.6, Troponin I 0.57*H, Total Protein 8.4H, Albumin 4.9H, Free Thyroxine 0.91, TSH Owsley Testing 5.23H, Serum Test, Qualitative NEGATIVE Laboratory Tests 03/05/17 08:59 A/P-Cardiology Assessment/Admission Diagnosis Paroxysmal atrial flutter with RVR Mild leucocytosis of undetermined etiology Mild troponin elevation, likely related to markedly elevated heart rate for over 12 hours. No distinct evidence of ac [place] Elevated BMI of 33 Discussion and Recomendations * Treat rate with dilt * Stroke prophylaxis with apixaban * I had a discussion with her regarding consideration of ext elec CV to which she did not agree * Monitor labs * Admit for observation KORTNEY ADAIR MD FACP FAC CCDS Mar 05, 2017 13:37
[2017-03-05] MEDS ORDERED: CATHETER FLUSH 10 ML SYR IV PRN (14:15)
[2017-03-05] MEDS ORDERED: INFLUENZA TRIvalent 2017-2018 0.5 ML/45 MCG SYR IM ONE (14:30)
[2017-03-05] MEDS: NS IV 1000 ML 1,000 ML IV SCH ×2 (14:37→21:10)
[2017-03-05] MEDS ORDERED: ACETAMINOPHEN 325 MG TABLET/CAPLET (TYLENOL) PO PRN (19:30)
[2017-03-05] MEDS: APIXABAN 5 MG (ELIQUIS) TABLET PO SCH (21:10)
[2017-03-06] VITALS: BP 132/72
[2017-03-06 03:52] VITALS: BP 118/63
[2017-03-06] MEDS: NS IV 1000 ML 1,000 ML IV SCH ×2 (03:52→10:15)
[2017-03-06 05:17] LABS: BASOPHILS % (AUTO) 0 % (0-10); EOSINOPHILS # (AUTO) 0.3 10^3/uL (0.0-0.3); EOSINOPHILS % (AUTO) 3 % (0-10); HEMATOCRIT 40 % (35-52); HEMOGLOBIN 14.3 G/DL (11.5-16.0); LYMPHOCYTES # (AUTO) 2.7 X 10^3 (1.0-4.0); LYMPHOCYTES % (AUTO) 34 % (12-44); MEAN CORPUSCULAR HEMOGLOBIN 33 PG (25-34); MEAN CORPUSCULAR HGB CONC 36 G/DL (32-36); MEAN CORPUSCULAR VOLUME 92 FL (80-99); MONOCYTES # (AUTO) 0.6 X 10^3 (0.0-1.0); MONOCYTES % (AUTO) 7 % (0-12); NEUTROPHILS # (AUTO) 4.5 X 10^3 (1.8-7.8); NEUTROPHILS % (AUTO) 56 % (42-75); PLATELET COUNT 275 10^3/uL (130-400); RED BLOOD COUNT 4.37 10^6/uL (4.35-5.85); WHITE BLOOD COUNT 8.1 10^3/uL (4.3-11.0)
[2017-03-06 05:37] LABS: ALANINE AMINOTRANSFERASE 16 U/L (0-55); ALBUMIN 3.7 GM/DL (3.2-4.5); ALKALINE PHOSPHATASE 46 U/L (40-136); BILIRUBIN,TOTAL 0.7 MG/DL (0.1-1.0); BUN/CREATININE RATIO 19; CALCIUM 8.1 MG/DL (8.5-10.1); CARBON DIOXIDE 20 MMOL/L (21-32); CHLORIDE 109 MMOL/L (98-107); CHOLESTEROL 189 MG/DL (< 200); CREATININE SERUM 0.74 MG/DL (0.60-1.30); GFR ESTIMATED > 60; GLUCOSE 83 MG/DL (70-105); HDL CHOLESTEROL 31 MG/DL (40-60); MAGNESIUM 2.5 MG/DL (1.8-2.4); POTASSIUM 3.9 MMOL/L (3.6-5.0); SODIUM 140 MMOL/L (135-145); TOTAL PROTEIN 5.9 GM/DL (6.4-8.2); TRIGLYCERIDES 107 MG/DL (<150); VLDL CHOLESTEROL 21 MG/DL (5-40)
[2017-03-06 08:13] VITALS: BP 117/68
[2017-03-06] MEDS: APIXABAN 5 MG (ELIQUIS) TABLET PO SCH (08:17)
--- NOTE | 2017-03-06 08:36 | Progress Note-Cardiology ---
Cardiology SOAP Progress Note Objective: I&O/Vital Signs Vital Sign - Last 12Hours 03/06/17 03/06/17 03/06/17 03/06/17 00:00 00:00 00:08 01:00 Temp 98.1 Pulse 55 62 B/P (MAP) 132/72 (92) Pulse Ox 96 O2 Delivery Room Air Room Air 03/06/17 03/06/17 03/06/17 03/06/17 03:52 04:00 07:00 08:00 Temp 98.0 Pulse 63 55 Resp 16 B/P (MAP) 118/63 (81) Pulse Ox 96 96 O2 Delivery Room Air Room Air Room Air 03/06/17 08:13 Temp 98.9 Pulse 73 Resp 16 B/P (MAP) 117/68 (84) Pulse Ox 98 O2 Delivery Room Air Intake and Output 03/06/17 00:00 Intake Total 1700 ml Balance 1700 ml Weight (Pounds): 217 Weight (Ounces): 12.8 Weight (Calculated Kilograms): 98.652892 Constitutional: AAO x 3, well-developed, well-nourished Respiratory: No accessory muscle use, lungs clear to percussion Cardiovascular: regular rate-rhythm, tachycardia, S1 and S2, systolic murmur ( faint ALAINA at card base) Gastrointestional: No tender, soft, No guarding, No rebound, audible bowel sounds Extremities: No clubbing, No cyanosis, No significant edema Neurologic/Psychiatric: oriented x 3, grossly intact, power is 5/5 both on sides Skin: No rash on exposed areas, No ulcerations on exposed areas Results/Procedures: Labs Laboratory Tests 03/06/17 04:15: White Blood Count 8.1, Red Blood Count 4.37, Hemoglobin 14.3#, Hematocrit 40, Mean Corpuscular Volume 92, Mean Corpuscular Hemoglobin 33, Mean Corpuscular Hemoglobin Concent 36, Red Cell Distribution Width 12.0, Platelet Count 275, Mean Platelet Volume 10.0, Neutrophils (%) (Auto) 56, Lymphocytes (%) (Auto) 34 , Monocytes (%) (Auto) 7, Eosinophils (%) (Auto) 3, Basophils (%) (Auto) 0, Neutrophils # (Auto) 4.5, Lymphocytes # (Auto) 2.7, Monocytes # (Auto) 0.6, Eosinophils # (Auto) 0.3, Basophils # (Auto) 0.0, Sodium Level 140, Potassium Level 3.9, Chloride Level 109H, Carbon Dioxide Level 20L, Anion Gap 11, Blood Urea Nitrogen 14, Creatinine 0.74, Estimat Glomerular Filtration Rate > 60, BUN/ Creatinine Ratio 19, Glucose Level 83, Calcium Level 8.1L, Magnesium Level 2.5H , Total Bilirubin 0.7, Aspartate Amino Transf (AST/SGOT) 16, Alanine Aminotransferase (ALT/SGPT) 16, Alkaline Phosphatase 46, Troponin I 0.35*H, Total Protein 5.9L, Albumin 3.7, Triglycerides Level 107, Cholesterol Level 189 , LDL Cholesterol Direct 142H, VLDL Cholesterol 21, HDL Cholesterol 31L, Thyroid Stimulating Hormone (TSH) 5.18H A/P: Assessment: Paroxysmal atrial flutter with RVR Mild leucocytosis of undetermined etiology Mild troponin elevation, likely related to markedly elevated heart rate for over 12 hours. No distinct evidence of ac [place] Elevated BMI of 33 Elevated TSH suggestive of hypothyroidism Plan: * Continue Diltiazem * Stroke prophylaxis with apixaban * Dr. Adair had a discussion with her regarding consideration of ext elec CV to which she did not agree * Monitor labs STACIE BRIDGES Mar 06, 2017 08:36
[2017-03-06] MEDS ORDERED: DILTIAZEM 240 MG (CARDIZEM CD) CAP PO SCH (09:00)
[2017-03-06] MEDS ORDERED: APIX5TAB PO (10:21)
[2017-03-06] MEDS ORDERED: DILT240C63 PO (10:21)
--- NOTE | 2017-03-06 10:24 | Discharge Inst-Cardiology ---
Discharge Inst-Cardiac Discharge Medications New Medications: Apixaban (Eliquis) 5 Mg Tablet 5 MG PO BID, #60 TAB 3 Refills Diltiazem HCl (Diltiazem 24Hr Cd) 240 Mg Cap.er.24h 240 MG PO DAILY, #30 CAP 5 Refills New, Converted or Re-Newed RX: Transmitted to Pharmacy Patient Instructions Patient Instructions: Follow up appt with Dr. Adair in a week STACIE BRIDGES Mar 06, 2017 10:24
[2017-03-06 11:58] VITALS: BP 111/77
--- NOTE | 2017-03-06 14:13 | Progress Note-Cardiology ---
Cardiology SOAP Progress Note Subjective: Feels really well. Denies any cp or palp or syncope or shortness of breath or swelling. Slept well last night Objective: I&O/Vital Signs Vital Sign - Last 12Hours 03/06/17 03/06/17 03/06/17 03/06/17 03:52 04:00 07:00 08:00 Temp 98.0 Pulse 63 55 Resp 16 B/P (MAP) 118/63 (81) Pulse Ox 96 96 O2 Delivery Room Air Room Air Room Air 03/06/17 03/06/17 03/06/17 08:13 11:58 12:15 Temp 98.9 99.3 Pulse 73 64 Resp 16 18 B/P (MAP) 117/68 (84) 111/77 (88) Pulse Ox 98 100 O2 Delivery Room Air Room Air Intake and Output 03/06/17 00:00 Intake Total 1700 ml Balance 1700 ml Weight (Pounds): 217 Weight (Ounces): 12.8 Weight (Calculated Kilograms): 98.213539 Constitutional: AAO x 3, well-developed, well-nourished Respiratory: No accessory muscle use, lungs clear to percussion Cardiovascular: regular rate-rhythm, tachycardia, S1 and S2, systolic murmur ( faint ALAINA at card base) Gastrointestional: No tender, soft, No guarding, No rebound, audible bowel sounds Extremities: No clubbing, No cyanosis, No significant edema Neurologic/Psychiatric: oriented x 3, grossly intact, power is 5/5 both on sides Skin: No rash on exposed areas, No ulcerations on exposed areas Results/Procedures: Labs Laboratory Tests 03/06/17 04:15: White Blood Count 8.1, Red Blood Count 4.37, Hemoglobin 14.3#, Hematocrit 40, Mean Corpuscular Volume 92, Mean Corpuscular Hemoglobin 33, Mean Corpuscular Hemoglobin Concent 36, Red Cell Distribution Width 12.0, Platelet Count 275, Mean Platelet Volume 10.0, Neutrophils (%) (Auto) 56, Lymphocytes (%) (Auto) 34 , Monocytes (%) (Auto) 7, Eosinophils (%) (Auto) 3, Basophils (%) (Auto) 0, Neutrophils # (Auto) 4.5, Lymphocytes # (Auto) 2.7, Monocytes # (Auto) 0.6, Eosinophils # (Auto) 0.3, Basophils # (Auto) 0.0, Sodium Level 140, Potassium Level 3.9, Chloride Level 109H, Carbon Dioxide Level 20L, Anion Gap 11, Blood Urea Nitrogen 14, Creatinine 0.74, Estimat Glomerular Filtration Rate > 60, BUN/ Creatinine Ratio 19, Glucose Level 83, Calcium Level 8.1L, Magnesium Level 2.5H , Total Bilirubin 0.7, Aspartate Amino Transf (AST/SGOT) 16, Alanine Aminotransferase (ALT/SGPT) 16, Alkaline Phosphatase 46, Troponin I 0.35*H, Total Protein 5.9L, Albumin 3.7, Triglycerides Level 107, Cholesterol Level 189 , LDL Cholesterol Direct 142H, VLDL Cholesterol 21, HDL Cholesterol 31L, Thyroid Stimulating Hormone (TSH) 5.18H Laboratory Tests 03/05/17 08:59 03/06/17 04:15 A/P: Assessment: Paroxysmal atrial flutter with RVR, first diagnosed on the morning of 03/05/16, in NSR since late morning of 03/05/16 Mild leucocytosis, resolved Mild troponin elevation, likely related to markedly elevated heart rate for over 12 hours. No clinical evidence of [place] Elevated BMI of 33 Elevated TSH suggestive of mild hypothyroidism Plan: * Continue Diltiazem * Stroke prophylaxis with apixaban * I had a detailed discussion with her regarding her CV issues * I advised outpatient f/u * Return to ER in case of any recurrence of symptoms or new symptoms * ETT echo and EP consult for consideration of A Fl ablation recommended. She wishes to pursue that as an outpatient * We discussed the pros and cons current med regimen. We advised avoidance of while on these meds. She understands and states compliance HERBERT LADD MD FACP [facility] CCDS Mar 06, 2017 14:13
--- NOTE | 2017-03-06 14:15 | Cardiology Discharge Summary ---
Diagnosis/Chief Complaint Date of Admission Mar 05, 2017 at 12:00 Date of Discharge Mar 06, 2017 at 12:15 Final/Discharge Diagnosis Paroxysmal atrial flutter with RVR, first diagnosed on the morning of 03/05/17, in NSR since late morning of 03/05/17 Mild leucocytosis, resolved Mild troponin elevation, likely related to markedly elevated heart rate for over 12 hours. No clinical evidence of [place] Elevated BMI of 33 Elevated TSH suggestive of mild hypothyroidism Chief Complaint/HPI Chief Complaint/HPI 32 yo woman who developed palpitations consisting of a feeling of rapid heart beat last night. She noted malaise and exertional shortness of breath. She did not have any chest pain. She waited overnight and came to the ER this am and was found to be in A Fl with RVR. Symptoms of palp and shortness of breath improved with iv dilt. Never had any cp. Denies leg swelling or syncope Please refer to the f/u note of the same date (03/06/16) for hosp course We have advised f/u on possible thyroid abnormalities with Dr Starks (her pcp). She states she will comply Discharge Summary Procedures Echo on 03/06/17 Discussion & Recommendations Home Medications Reviewed patient Home Medication Reconciliation Form Discharge Home Medications: Reviewed and agree with Discharge Medication list on patient's Discharge Instruction sheet Clinical Quality Measures DVT/VTE Risk/Contraindication: RFS Level Per Nursing on Admit: 1=Low/No VTE PPX HERBERT LADD MD FACP [facility] Mar 06, 2017 14:15
== END 2017-03-06 12:15 | disposition home or self-care (01) | DRG 310 ==
LOC: EDUNIT# 08:49 → ER 08:51 → ICU 12:00
PROVIDERS: ADMIT Internal Medicine Cardiovascular Disease; ATTEND Internal Medicine Cardiovascular Disease
DX: I48.92 Unspecified atrial flutter (principal); D72.829 Elevated white blood cell count, unspecified; E03.9 Hypothyroidism, unspecified
CPT/HCPCS: 36415; 71045; 71046; 80053; 80061; 83735; 83874; 84439; 84443; 84484; 84703; 85007; 85025; 85027; 85610; 85730; 86141; 93005; 93041; 93306

== ENCOUNTER → 2017-03-12 | Outpatient (CLI) | payer BC ==
[~2017-03-12] MED LIST changes: +APIX5TAB PO; +DILT240C63 PO
== END ==
LOC: CARD 10:45
PROVIDERS: ATTEND Nurse Practitioner Family
DX: I48.92 Unspecified atrial flutter (principal)
CPT/HCPCS: 93351

== ENCOUNTER 2017-04-22 20:00 | Outpatient (CLI) | payer BC | END 2017-04-23 05:55 | disposition home or self-care (01) | LOC: SLEEP 20:00 | PROVIDERS: ATTEND Nurse Practitioner | DX: G47.33 Obstructive sleep apnea (adult) (pediatric) (principal) | CPT/HCPCS: 95810 ==

== ENCOUNTER 2017-05-22 08:20 | Observation (INO) | payer BC ==
[~2017-05-22] VITALS: Ht 170.2 cm; Wt 86.2 kg
[2017-05-22] VITALS (13 sets, daily range): BP systolic 95–119; BP diastolic 64–88
--- OUTSIDE RECORDS SUMMARY | 2017-05-22 08:26 | XMS REPORT | Encounter Summary ---
Author Author [facility] Organization [facility] Address Unknown Phone Unavailable Care Team Providers Care Milk Pasteurizer Name Role Phone Nilda Pacheco MD PCP Encounter Details Date Type Department Care Team Description 05/17/2017 Pre-Admit [facility] Cardiology Maricarmen Shah RN Orders Only [address] [place] [address] Social History Tobacco Use Types Packs/Day Years Used Date Never Smoker Smokeless Tobacco: Never Used Alcohol Use Drinks/Week oz/Week Comments Yes rarely Sex Assigned at Date Recorded Not on file as of this encounter Plan of Treatment Date Type Specialty Care Team Description 06/14/2017 Surgery Cardiology John Don MD INTRACARDIAC CATHETER [address] ABLATION WITH [address] [place] [address] ELECTROPHYSIOLOGIC [phone] EVALUATION - TYPICAL FLUTTER 06/14/2017 Procedure Pass Cardiology 06/14/2017 [facility] Cardiology John Don MD Encounter [address] [place] [address] [phone] as of this encounter Visit Diagnoses Not on filein this encounter
--- OUTSIDE RECORDS SUMMARY | 2017-05-22 08:26 | XMS REPORT | Encounter Summary ---
Author Author [facility] Organization [facility] Address Unknown Phone Unavailable Care Team Providers Care Community Service Officer Name Role Phone Nilda Pacheco MD PCP Reason for Visit * Reason Comments EP Pre-Procedure 06/14 EPS - RFA Instructions Encounter Details Date Type Department Care Team Description 05/17/2017 Documentation [facility] Maricarmen Holbrook RN EP Pre-Procedure [address] Instructions (06/14 EPS - [address] RFA) [place] [address] Social History Tobacco Use Types Packs/Day Years Used Date Never Smoker Smokeless Tobacco: Never Used Alcohol Use Drinks/Week oz/Week Comments Yes rarely Sex Assigned at Date Recorded Not on file as of this encounter Instructions * Patient Instructions - Maricarmen Holbrook RN - 05/17/2017 11:22 AM CDT Formatting of this note may be different from the original. ELECTROPHYSIOLOGY PRE-ADMISSION INSTRUCTIONS Patient Name: Maddie Sheffield Date of : 1985 (32 y.o.) Today's Date: 05/17/2017 PROCEDURE: You are scheduled for Comprehensive Electrophysiology Study and Radiofrequency ablation of Atrial Flutter (AF) with Dr. John Don. ARRIVAL TIME: Please report to the [facility] [facility] admitting office on the ground floor of the [facility] on: 06/14/17 The EP Lab will call to notify you of your arrival time. They will call on the business day prior to your procedure. (If you have any questions regarding your arrival time for the Electrophysiology Lab, please call the EP Lab at [phone].) PRE-PROCEDURE APPOINTMENTS: 05/14/17 Dr Don will update morning of procedure Office visit to update history and physical (requirement within 30 days of procedure) with Dr. John Don at [facility] 06/07/17 Pre-Admission lab work: BMP, CBC and Magnesium at the lab of your choice. SPECIAL MEDICATION INSTRUCTIONS Nothing to eat or drink after midnight before your procedure. Take your prescription medications with a sip of water as instructed. No caffeine for 24 hours prior to your procedure. Any new prescriptions will be sent to your pharmacy listed on file with us. HOLD ALL over the counter vitamins or supplements on the morning of your procedure. Antiarrythmics: Tambocor (flecainide) -- hold for 72 hours prior to your procedure. LAST DOSE: 06/10/17 evening dose Do NOT miss any Eliquis dosing. If you do please call the office: as soon as possible, may need to schedule transesophageal echocardiogram before the ablation procedure Additional Instructions If you wear CPAP, please bring your mask and machine with you to the hospital. Take a bath or shower with anti-bacterial soap the evening before, or the morning of the procedure. We will give this to you at your office visit. Bring photo ID and your health insurance card(s). Arrange for a after school driver to take you home from the hospital. Bring an accurate list of your current medications with you to the hospital ( all meds and supplements taken daily). Wear comfortable clothes and don't bring valuables, other than photo identification card, with you to the hospital. Please pack a bag for an overnight stay. Please review your pre-procedure instructions and call the office at with any questions. You may ask to speak with any of Dr. John Don's nurses. There are several of us in the office that can assist you. You will have a 1 week follow up phone call by on of Dr. John Don's nurses just to check in with you. For questions regarding post procedure care or restrictions please refer to the "Your Care Instructions" included in the Comprehensive Electrophysiology Study and Radiofrequency ablation of Atrial Flutter (AF) Packet. ALLERGIES Allergies Allergen Reactions Penicillins RASH CURRENT MEDICATIONS Outpatient Encounter Prescriptions as of 05/17/2017 Medication Sig Dispense Refill apixaban (ELIQUIS) 5 mg tablet Take 5 mg by mouth twice daily. diltiazem CD (CARDIZEM CD) 240 mg capsule Take 240 mg by mouth daily. flecainide (TAMBOCOR) 50 mg tablet pill in pocket, . Two tablets with recurrent events after 15 min take one tablet 60 tablet 11 flecainide (TAMBOCOR) 50 mg tablet Take 1 tablet by mouth twice daily. 60 tablet 11 No facility-administered encounter medications on file as of 05/17/2017. Form completed by: Maricarmen Holbrook RN Date completed: 05/17/17 Method: Via telephone and mailed to the patient. in this encounter Miscellaneous Notes * Addendum Note - Maricarmen Holbrook RN - 05/17/2017 11:22 AM CDT Addended by: MARICARMEN HOLBROOK on: 05/17/2017 11:40 AM Modules accepted: Orders in this encounter Plan of Treatment Date Type Specialty Care Team Description 06/14/2017 Surgery Cardiology John Don MD INTRACARDIAC CATHETER [address] ABLATION WITH [address] [place] [address] ELECTROPHYSIOLOGIC [phone] EVALUATION - TYPICAL FLUTTER 06/14/2017 Procedure Pass Cardiology 06/14/2017 [facility] Cardiology John Don MD Encounter [address] [place] [address] [phone] Name Priority Associated Diagnoses Order Schedule CBC Routine Typical atrial flutter Expected: 06/07/2017 (HCC) (Approximate), Expires: Palpitations 05/17/2018 BASIC METABOLIC PANEL Routine Typical atrial flutter Expected: 2017 (HCC) (Approximate), Expires: Palpitations 05/17/2018 MAGNESIUM Routine Typical atrial flutter Expected: 06/07/2017 ([facility]) (Approximate), Expires: Palpitations 05/17/2018 as of this encounter Visit Diagnoses Diagnosis Typical atrial flutter (HCC) - Primary Atrial flutter Palpitations
--- OUTSIDE RECORDS SUMMARY | 2017-05-22 08:26 | XMS REPORT | Continuity of Care Document ---
Author Author [facility] Organization [facility] Address Unknown Phone Unavailable Care Team Providers Care Project Eng Name Role Phone [employer] Unavailable Unavailable Problems Medications Allergies, Adverse Reactions, Alerts Immunizations Results Vital Signs Encounters Location Location Details Encounter Type Encounter Number Reason For Visit Attending Provider ADM Date DC Date Status Source OUTPATIENT [id number] BETITO CHIN 05/06/2017 Active [facility] O Active [facility] O [id number] BETITO CHIN Active [facility] Procedures Plan of Care Social History Assessment and Plan Family History Advance Directives Functional Status
--- OUTSIDE RECORDS SUMMARY | 2017-05-22 08:26 | XMS REPORT | Encounter Summary ---
Author Author [facility] Organization [facility] Address Unknown Phone Unavailable Care Team Providers Care Airplane Captain Name Role Phone Nilda Pacheco MD PCP Encounter Details Date Type Department Care Team Description 05/17/2017 Orders Only [facility] Maricarmen Shah RN Typical atrial flutter [address] (HCC); [address] Acquired hypothyroidism; [place] [address] Palpitations [phone] Social History Tobacco Use Types Packs/Day Years Used Date Never Smoker Smokeless Tobacco: Never Used Alcohol Use Drinks/Week oz/Week Comments Yes rarely Sex Assigned at Date Recorded Not on file as of this encounter Progress Notes * Maricarmen Shah RN - 05/17/2017 11:29 AM CDT lab orders mailed to Ms Sheffield to have completed prior to procedure in this encounter Plan of Treatment Date Type Specialty Care Team Description 06/14/2017 Surgery Cardiology John Don MD INTRACARDIAC CATHETER [address] ABLATION WITH [address] [place] [address] ELECTROPHYSIOLOGIC [phone] EVALUATION - TYPICAL FLUTTER 06/14/2017 Procedure Pass Cardiology 06/14/2017 Hospital Cardiology John Don MD Encounter [address] [place] [address] [phone] as of this encounter Visit Diagnoses Diagnosis Typical atrial flutter (HCC) Atrial flutter Acquired hypothyroidism Unspecified hypothyroidism Palpitations
--- OUTSIDE RECORDS SUMMARY | 2017-05-22 08:26 | XMS REPORT | Clinical Summary ---
Author Author [facility] Organization [facility] Address Unknown Phone Unavailable Care Team Providers Care Crime Prevention Police Officer Name Role Phone Nilda Pacheco MD PCP Source Comments Some departments are not documenting in the electronic medical record. If you do not see the information that you expected, contact Release of Information in the Health Information Management department at [phone] for further assistance in locating additional records.[facility] Allergies Active Allergy Reactions Severity Noted Date Comments Penicillins RASH Medium 05/03/2017 Current Medications Prescription Sig. Disp. Refills Start End Date Status Date diltiazem CD (CARDIZEM Take 240 mg by mouth Active CD) 240 mg capsule daily. apixaban (ELIQUIS) 5 mg Take 5 mg by mouth twice Active tablet daily. flecainide (TAMBOCOR) 50 pill in pocket, . Two 60 tablet 11 05/07/19 Active mg tablet tablets with recurrent 18 events after 15 min take one tablet flecainide (TAMBOCOR) 50 Take 1 tablet by mouth 60 tablet 11 05/07/19 Active mg tablet twice daily. 18 Active Problems Problem Noted Date Atrial flutter (HCC) 05/17/2017 Acquired hypothyroidism 05/17/2017 Palpitations 05/17/2017 Encounters Date Type Specialty Care Team Description 05/17/2017 Pre-Admit Cardiology Maricarmen Shah RN Orders Only 05/17/2017 Orders Only Cardiology Maricarmen Shah RN Typical atrial flutter (HCC); Acquired hypothyroidism; Palpitations 05/17/2017 Documentation Cardiology Maricarmen Shah RN EP Pre-Procedure Instructions (06/14 EPS - RFA) 05/17/2017 Telephone Cardiology Maricarmen Shah RN Procedure (EPS - Atrial Flutter changed to 06/14) 05/06/2017 Office Visit Cardiology John Don MD New Patient ( Possible Ablation/A-flutter) 04/15/2017 Patient Profile Cardiology Edgar Hoyt New Patient (A -Flutter) 04/15/2017 Documentation Cardiology Edgar Hoyt Records Request (Kortney Adair MD| [facility] () [phone] or [phone]) 04/15/2017 Documentation Cardiology Edgar Hoyt Records Request (Nilda Pacheco MD/ [facility] () [phone]) from Last 3 Months Family History Medical History Relation Name Comments Hypertension Father Alzheimer's Maternal Grandmother Arthritis-rheumatoid Mother Hypertension Mother Alzheimer's Paternal Grandfather None Reported Paternal Grandmother None Reported Sister Relation Name Status Comments Father Alive Maternal Grandfather lung issues (Age 70s) Maternal Grandmother (Age late 80s 89) Mother Alive shingles Paternal Grandfather (Age 84) Paternal Grandmother Alive Sister Alive Social History Tobacco Use Types Packs/Day Years Used Date Never Smoker Smokeless Tobacco: Never Used Alcohol Use Drinks/Week oz/Week Comments Yes rarely Sex Assigned at Date Recorded Not on file Last Filed Vital Signs Vital Sign Reading Time Taken Blood Pressure 124/76 05/06/2017 8:51 AM REGISTERED NURSE SURGICAL SERVICES Pulse 61 05/06/2017 8:51 AM REGISTERED NURSE SURGICAL SERVICES Temperature - - Respiratory Rate - - Oxygen Saturation - - Inhaled Oxygen - - Concentration Weight 90.4 kg (199 lb 6.4 oz) 05/06/2017 8:51 AM REGISTERED NURSE SURGICAL SERVICES Height 167.6 cm (5' 6") 05/06/2017 8:51 AM REGISTERED NURSE SURGICAL SERVICES Body Mass Index 32.18 05/06/2017 8:51 AM REGISTERED NURSE SURGICAL SERVICES Plan of Treatment Date Type Specialty Care Team Description 06/14/2017 Surgery Cardiology John Don MD INTRACARDIAC CATHETER [address] ABLATION WITH [address] [place] [address] ELECTROPHYSIOLOGIC [phone] EVALUATION - TYPICAL FLUTTER 06/14/2017 Procedure Pass Cardiology 06/14/2017 Hospital Cardiology John Don MD Encounter [address] [place] [address] Health Maintenance Due Date Last Done Comments PHYSICAL (COMPREHENSIVE) 01/06/1992 EXAM PERTUSSIS VACCINE 01/06/1996 HIV SCREENING 01/06/2000 TETANUS VACCINE 2002 CERVICAL CANCER SCREENING 2015 INFLUENZA VACCINE 12/02/2017 Results Not on filefrom Last 3 Months
--- OUTSIDE RECORDS SUMMARY | 2017-05-22 08:26 | XMS REPORT | Encounter Summary ---
Author Author [facility] Organization [facility] Address Unknown Phone Unavailable Care Team Providers Care Psychologist Name Role Phone PCP Unavailable Encounter Details Date Type Department Care Team Description 06/14/2017 Hospital Cardiac Catheterization John Don MD Encounter Laboratory [address] [place] [address] [place] [address] [phone] Social History Tobacco Use Types Packs/Day Years Used Date Never Smoker Smokeless Tobacco: Never Used Alcohol Use Drinks/Week oz/Week Comments Yes rarely Sex Assigned at Date Recorded Not on file as of this encounter Plan of Treatment Date Type Specialty Care Team Description 06/14/2017 Surgery Cardiology John Don MD INTRACARDIAC CATHETER [address] ABLATION WITH [address] [place] [address] ELECTROPHYSIOLOGIC [phone] EVALUATION - TYPICAL FLUTTER 06/14/2017 Procedure Pass Cardiology 06/14/2017 [facility] Cardiology John Don MD Encounter [address] [place] [address] [phone] as of this encounter Visit Diagnoses Not on filein this encounter Admitting Diagnoses Diagnosis Atrial Flutter
--- OUTSIDE RECORDS SUMMARY | 2017-05-22 08:26 | XMS REPORT | Encounter Summary ---
Author Author [facility] Organization [facility] Address Unknown Phone Unavailable Care Team Providers Care Corncob Pipe Supervisor Name Role Phone Nilda Pacheco MD PCP Encounter Details Date Type Department Care Team Description 06/14/2017 Surgery [facility] EP LAB John Don MD INTRACARDIAC CATHETER [address] [place] [address] [address] COMPREHENSIVE [phone] [place] [address] ELECTROPHYSIOLOGIC [phone] EVALUATION - TYPICAL FLUTTER Social History Tobacco Use Types Packs/Day Years Used Date Never Smoker Smokeless Tobacco: Never Used Alcohol Use Drinks/Week oz/Week Comments Yes rarely Sex Assigned at Date Recorded Not on file as of this encounter Plan of Treatment Date Type Specialty Care Team Description 06/14/2017 Surgery Cardiology John Don MD INTRACARDIAC CATHETER [address] ABLATION WITH [address] [place] [address] ELECTROPHYSIOLOGIC [phone] EVALUATION - TYPICAL FLUTTER 06/14/2017 Procedure Pass Cardiology 06/14/2017 [facility] Cardiology John Don MD Encounter [address] [place] [address] [phone] as of this encounter Visit Diagnoses Not on filein this encounter Admitting Diagnoses Diagnosis Atrial Flutter
--- OUTSIDE RECORDS SUMMARY | 2017-05-22 08:26 | XMS REPORT | Encounter Summary ---
Author Author [facility] Organization [facility] Address Unknown Phone Unavailable Care Team Providers Care Air Hammer Operator Name Role Phone PCP Unavailable Encounter Details Date Type Department Care Team Description 06/14/2017 Procedure Pass [facility] EP LAB [address] [place] [address] Social History Tobacco Use Types Packs/Day Years Used Date Never Smoker Smokeless Tobacco: Never Used Alcohol Use Drinks/Week oz/Week Comments Yes rarely Sex Assigned at Date Recorded Not on file as of this encounter Plan of Treatment Date Type Specialty Care Team Description 06/14/2017 Surgery Cardiology John Don MD INTRACARDIAC CATHETER [address] ABLATION WITH [address] [place] [address] ELECTROPHYSIOLOGIC [phone] EVALUATION - TYPICAL FLUTTER 06/14/2017 Procedure Pass Cardiology 06/14/2017 [facility] Cardiology John Don MD Encounter [address] [place] [address] [phone] as of this encounter Visit Diagnoses Not on filein this encounter
--- OUTSIDE RECORDS SUMMARY | 2017-05-22 08:27 | XMS REPORT | Encounter Summary ---
Author Author [facility] Organization [facility] Address Unknown Phone Unavailable Care Team Providers Care Slice Plug Cutter Operator Helper Name Role Phone Nilda Pacheco MD PCP Reason for Visit * Reason Comments New Patient A-Flutter Encounter Details Date Type Department Care Team Description 04/15/2017 Patient Profile [facility] GretchenRemy russelljay New Patient (A-Flutter) [address] [place] [address] Social History Tobacco Use Types Packs/Day Years Used Date Never Smoker Smokeless Tobacco: Never Used Alcohol Use Drinks/Week oz/Week Comments Yes rarely Sex Assigned at Date Recorded Not on file as of this encounter Progress Notes * GretchenEdgar russell - 04/15/2017 10:11 AM PYROGLAZER LMOM for pt to call back to complete pt profile. 04/15/17 in this encounter Plan of Treatment Date Type Specialty Care Team Description 06/14/2017 Surgery Cardiology John Don MD INTRACARDIAC CATHETER [address] ABLATION WITH [address] [place] [address] ELECTROPHYSIOLOGIC [phone] EVALUATION - TYPICAL FLUTTER 06/14/2017 Procedure Pass Cardiology 06/14/2017 Hospital Cardiology John Don MD Encounter [address] [place] [address] [phone] as of this encounter Visit Diagnoses Not on filein this encounter
--- OUTSIDE RECORDS SUMMARY | 2017-05-22 08:27 | XMS REPORT | Encounter Summary ---
Author Author [facility] Organization [facility] Address Unknown Phone Unavailable Care Team Providers Care Black Off Worker Name Role Phone Nilda Pacheco MD PCP Reason for Visit * Reason Comments New Patient Possible Ablation/A-flutter Encounter Details Date Type Department Care Team Description 05/06/2017 Office Visit [facility] Cardiology John Don MD New Patient (Possible [address] Ablation/A-flutter) [address] [place] [address] [place] [address] [phone] Social History Tobacco Use Types Packs/Day Years Used Date Never Smoker Smokeless Tobacco: Never Used Alcohol Use Drinks/Week oz/Week Comments Yes rarely Sex Assigned at Date Recorded Not on file as of this encounter Last Filed Vital Signs Vital Sign Reading Time Taken Blood Pressure 124/76 05/06/2017 8:51 AM CLINICAL TRAINING COORDINATOR Pulse 61 05/06/2017 8:51 AM CLINICAL TRAINING COORDINATOR Temperature - - Respiratory Rate - - Oxygen Saturation - - Inhaled Oxygen - - Concentration Weight 90.4 kg (199 lb 6.4 oz) 05/06/2017 8:51 AM CLINICAL TRAINING COORDINATOR Height 167.6 cm (5' 6") 05/06/2017 8:51 AM CLINICAL TRAINING COORDINATOR Body Mass Index 32.18 05/06/2017 8:51 AM CLINICAL TRAINING COORDINATOR in this encounter Instructions * Patient Instructions - Maricarmen Shah RN - 05/06/2017 9:00 AM CLINICAL TRAINING COORDINATOR Continue flecainide 50 mg twice daily Flecainide as a snia-fr-gyv-pocket approach. I advised her to take 100 mg Flecainide with any recurrent events and a second 50 mg Flecainide 15 minutes later if her rhythm has not converted. She will call our office if she has to use Flecainide more than 3 times a month or if she has an episode that last greater than 12 hours despite Flecainide Will arrange for an Atrial Flutter Ablation instructions on pre procedure sheet Follow up with Dr Don in 3 months In order to provide you the best care possible we ask that you follow up as below: For NON-URGENT questions please contact us through your [employer] account. For all medication refills please contact your pharmacy or send a request through [employer]. For all questions that may need to be addressed urgently please call the nursing triage line at [phone] Saturday - Saturday 8-5 only. Please leave a detailed message with your name, date of , and reason for your call. To schedule an appointment call [phone]. Please allow 10-15 business days for the results of any testing to be reviewed. Please call our office if you have not heard from a nurse within this time frame. in this encounter Plan of Treatment Date Type Specialty Care Team Description 06/14/2017 Surgery Cardiology John Don MD INTRACARDIAC CATHETER [address] A[address] WITH [address] [place] [address] ELECTROPHYSIOLOGIC [phone] EVALUATION - TYPICAL FLUTTER 06/14/2017 Procedure Pass Cardiology 06/14/2017 [facility] Cardiology John Don MD Encounter [address] [place] [address] [phone] Name Priority Associated Diagnoses Order Schedule ECG 12-LEAD Routine Typical atrial flutter Ordered: 05/06/2017 (HCC) as of this encounter Visit Diagnoses Diagnosis Typical atrial flutter (HCC) - Primary Atrial flutter
--- OUTSIDE RECORDS SUMMARY | 2017-05-22 08:27 | XMS REPORT | Encounter Summary ---
Author Author [facility] Organization [facility] Address Unknown Phone Unavailable Care Team Providers Care Medical Office Technician Name Role Phone PCP Unavailable Reason for Visit * Reason Comments Records Request Nilda Pacheco MD/ [facility] (F) [phone] Encounter Details Date Type Department Care Team Description 04/15/2017 Documentation [facility] Edgar Hoyt Records Request (Nilda [address] Pacheco MD/ [facility] [address] Clinic (F) [phone]) [place], [place] [id number] Social History Tobacco Use Types Packs/Day Years Used Date Never Assessed Sex Assigned at Date Recorded Not on file as of this encounter Progress Notes * Edgar Hoyt - 04/15/2017 10:02 AM RACQUET MAKER Request for the following medical records for purpose of continuity of care: Maddie Yohannes 1985 has an appointment with Dr. Don on 05/06/17 Please send the following if available: OV notes Medication list Problem list Recent Labs Last 4 EKG's Ablation Notes Cath reports Device Implant notes Last Device check Cardioversion Event monitor report with ECG strips Holter monitor report with ECG strips Stress Test ECHO any additional cardiac information / testing. Please Fax to: [phone] Thank you, Edgar Hoyt [facility] 1 in this encounter Plan of Treatment Date Type Specialty Care Team Description 06/14/2017 Surgery Cardiology John Don MD INTRACARDIAC CATHETER [address] ABLATION WITH [address] [place] [address] ELECTROPHYSIOLOGIC [phone] EVALUATION - TYPICAL FLUTTER 06/14/2017 Procedure Pass Cardiology 06/14/2017 [facility] Cardiology John Don MD Encounter [address] [facility] [address] [place], [place] [id number] as of this encounter Visit Diagnoses Not on filein this encounter
--- OUTSIDE RECORDS SUMMARY | 2017-05-22 08:27 | XMS REPORT | Encounter Summary ---
Author Author [facility] Organization [facility] Address Unknown Phone Unavailable Care Team Providers Care Photo Mask Cleaner Name Role Phone Nilda Pacheco MD PCP Reason for Visit * Reason Comments Procedure EPS -Atrial Flutter changed to 06/14 Encounter Details Date Type Department Care Team Description 05/17/2017 Telephone [facility] Cardiology Maricamren Shah RN Procedure (EPS -Atrial [address] Flutter changed to 06/14) [address] [place] [address] Social History Tobacco Use Types Packs/Day Years Used Date Never Smoker Smokeless Tobacco: Never Used Alcohol Use Drinks/Week oz/Week Comments Yes rarely Sex Assigned at Date Recorded Not on file as of this encounter Miscellaneous Notes * Telephone Encounter - Maricarmen Shah RN - 05/17/2017 11:21 AM CDT talked with Maddie. EP procedure changed to 06/17/17 see procedure instructions * Telephone Encounter - Maricarmen Shah RN - 05/17/2017 11:20 AM CDT ----- Message from Aleena Ragland LPN sent at 05/17/2017 10:14 AM CDT ----- Regarding: MPE- lab question VM from patient on triage line. Said that she thought she was to have labs drawn prior to procedure on . She has not heard from us as to when to have drawn and where. Call back on cell. in this encounter Plan of Treatment Date Type Specialty Care Team Description 06/14/2017 Surgery Cardiology John Don MD INTRACARDIAC CATHETER [address] ABLATION WITH [address] [place] [address] ELECTROPHYSIOLOGIC [phone] EVALUATION - TYPICAL FLUTTER 06/14/2017 Procedure Pass Cardiology 06/14/2017 [facility] Cardiology John Don MD Encounter [address] [facility] [address] [place], [place] [id number] as of this encounter Visit Diagnoses Not on filein this encounter
--- OUTSIDE RECORDS SUMMARY | 2017-05-22 08:27 | XMS REPORT | Encounter Summary ---
Author Author [facility] Organization [facility] Address Unknown Phone Unavailable Care Team Providers Care Swedish Masseuse Name Role Phone PCP Unavailable Reason for Visit * Reason Comments Records Request Kortney Adair MD| [facility] () or [phone] Encounter Details Date Type Department Care Team Description 04/15/2017 Documentation [facility] dEgar Hoyt Records Request (Kort[address] Mahesh Adair MD| Via [address] () [place] [address] or [phone] ) Social History Tobacco Use Types Packs/Day Years Used Date Never Assessed Sex Assigned at Date Recorded Not on file as of this encounter Progress Notes * Edgar Hoyt - 04/15/2017 10:06 AM 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 Don on 05/06/17 Please send the following if available: OV notes Medication list Problem list Recent Labs Last 4 EKG's Ablation Notes Cath reports Device Implant notes Last Device check Cardioversion Event monitor report with ECG strips Holter monitor report with ECG strips Stress Test ECHO any additional cardiac information / testing. Please Fax to: [phone] Thank you, Edgar Hoyt [facility] LIME SLAKER 1 in this encounter Plan of Treatment Date Type Specialty Care Team Description 06/14/2017 Surgery Cardiology John Don MD INTRACARDIAC CATHETER [address] ABLATION WITH [address] [place] [address] ELECTROPHYSIOLOGIC [phone] EVALUATION - TYPICAL FLUTTER 06/14/2017 Procedure Pass Cardiology 06/14/2017 [facility] Cardiology John Don MD Encounter [address] [facility] [address] [place] [address] [phone] as of this encounter Visit Diagnoses Not on filein this encounter"
--- OUTSIDE RECORDS SUMMARY | 2017-05-22 08:28 | XMS REPORT | Continuity of Care Document ---
Author Author [facility] Organization [facility] Address Unknown Phone Unavailable Allergies Active Description Code Type Severity Reaction Onset Reported/Identified Relationship to Patient Clinical Status Yes Penicillins [id number] Drug Allergy Unknown N/A 02/23/2008 Medications There [...] OTHER EXTERNAL CAUSE STATUS 05/11/2016 GLORIA PEOPLES CARPET FLOOR LAYER APPRENTICE Ot R51 HEADACHE 05/11/2016 GLORIA PEOPLES APRN [...] OTHER EXTERNAL CAUSE STATUS 05/14/2016 GLORIA PEOPLES CARPET FLOOR LAYER APPRENTICE Ot R51 HEADACHE 05/14/2016 GLORIA PEOPLES APRN Ot S09.90XA UNSPECIFIED INJURY OF HEAD, INITIAL ENCO 05/14/2016 GLORIA PEOPLES APRN Ot X58.XXXA EXPOSURE TO OTHER SPECIFIED FACTORS, INI 05/14/2016 GLORIA PEOPLES APRN Ot Y99.8 OTHER EXTERNAL CAUSE STATUS 05/14/2016 GLORIA PEOPLES APRN Ot R51 HEADACHE 05/14/2016 GLORIA PEOPLES APRN Ot S09.90XA UNSPECIFIED INJURY OF HEAD, INITIAL ENCO 05/14/2016 SHELTON, GLORIA M CARPET FLOOR LAYER APPRENTICE Ot X58.XXXA EXPOSURE TO OTHER SPECIFIED FACTORS, INI 05/14/2016 GLORIA PEOPLES CARPET FLOOR LAYER APPRENTICE Ot Y99.8 OTHER EXTERNAL CAUSE STATUS 05/30/2016 GLORIA PEOPLES CARPET FLOOR LAYER APPRENTICE Ot R51 HEADACHE 05/30/2016 GLORIA PEOPLES CARPET FLOOR LAYER APPRENTICE Ot S09.90XA UNSPECIFIED INJURY OF HEAD, INITIAL ENCO 05/30/2016 GLORIA PEOPLES CARPET FLOOR LAYER APPRENTICE Ot X58.XXXA EXPOSURE TO OTHER SPECIFIED FACTORS, INI 05/30/2016 GLORIA PEOPLES APRN Ot Y99.8 OTHER EXTERNAL CAUSE STATUS 05/31/2016 BLAISEREECE Azul DO W Ot M25.562 PAIN IN LEFT KNEE 05/31/2016 GLORIA PEOPLES APRN Ot N28.1 CYST OF KIDNEY, ACQUIRED 05/31/2016 GLORIA PEOPLES APRN Ot R51 HEADACHE 05/31/2016 GLORIA PEOPLES APRN Ot S09.90XA UNSPECIFIED INJURY OF HEAD, INITIAL ENCO 05/31/2016 GLORIA PEOPLES APRN Ot X58.XXXA EXPOSURE TO OTHER SPECIFIED FACTORS, INI 05/31/2016 GLORIA PEOPLES APRN Ot Y99.8 OTHER EXTERNAL CAUSE STATUS 02/17/2017 MISSY YAP SALES CONSULTANT Ot M94.8X8 OTHER SPECIFIED DISORDERS OF CARTILAGE, 02/17/2017 MISSY AYP SALES CONSULTANT Ot S89.92XA UNSPECIFIED INJURY OF LEFT LOWER LEG, IN 02/17/2017 MISSY YAP SALES CONSULTANT Ot X50.0XXA OVEREXERTION FROM STRENUOUS MOVEMENT OR 02/17/2017 MISSY YAP SALES CONSULTANT Ot Y93.41 ACTIVITY, DANCING 02/20/2017 MISSY YAP SALES CONSULTANT Ot M25.562 PAIN IN LEFT KNEE 02/20/2017 MISSY YAP SALES CONSULTANT Ot X50.1XXA OVEREXERTION FROM PROLONGED STATIC OR AW 02/20/2017 MISSY YAP SALES CONSULTANT Ot Y93.41 ACTIVITY, DANCING 03/05/2017 REECE WELSH DO W Ot M25.562 PAIN IN LEFT KNEE 03/05/2017 GLORIA PEOPLES CARPET FLOOR LAYER APPRENTICE Ot N28.1 CYST OF KIDNEY, ACQUIRED 03/05/2017 GLORIA PEOPLES APRN Ot R51 HEADACHE 03/05/2017 SHELTON, GLORIA M CARPET FLOOR LAYER APPRENTICE Ot S09.90XA UNSPECIFIED INJURY OF HEAD, INITIAL ENCO 03/05/2017 GLORIA PEOPLES APRN Ot X58.XXXA EXPOSURE TO OTHER SPECIFIED FACTORS, INI 03/05/2017 GLORIA PEOPLES CARPET FLOOR LAYER APPRENTICE Ot Y99.8 OTHER EXTERNAL CAUSE STATUS 03/05/2017 MISSY YAP Ot M25.562 PAIN IN LEFT KNEE 03/05/2017 MISSY YAP SALES CONSULTANT Ot X50.1XXA OVEREXERTION FROM PROLONGED STATIC OR AW 03/05/2017 MISSY YAP SALES CONSULTANT Ot Y93.41 ACTIVITY, DANCING 03/05/2017 MISSY YAP SALES CONSULTANT Ot M94.8X8 OTHER SPECIFIED DISORDERS OF CARTILAGE, 03/05/2017 MISSY YAPP Ot S89.92XA UNSPECIFIED INJURY OF LEFT LOWER LEG, IN 03/05/2017 MISSY YAP SALES CONSULTANT Ot X50.0XXA OVEREXERTION FROM STRENUOUS MOVEMENT OR 03/05/2017 MISSY YAP SALES CONSULTANT Ot Y93.41 ACTIVITY, DANCING 03/05/2017 BLAISE REECE GOINS Ot M25.562 PAIN IN LEFT KNEE 03/05/2017 GLORIA PEOPLES CARPET FLOOR LAYER APPRENTICE Ot N28.1 CYST OF KIDNEY, ACQUIRED 03/05/2017 GLORIA PEOPLES CARPET FLOOR LAYER APPRENTICE Ot R51 HEADACHE 03/05/2017 GLORIA PEOPLES CARPET FLOOR LAYER APPRENTICE Ot S09.90XA UNSPECIFIED INJURY OF HEAD, INITIAL ENCO 03/05/2017 GLORIA PEOPLES APRN Ot X58.XXXA EXPOSURE TO OTHER SPECIFIED FACTORS, INI 03/05/2017 GLORIA PEOPLES CARPET FLOOR LAYER APPRENTICE Ot Y99.8 OTHER EXTERNAL CAUSE STATUS 03/05/2017 MISSY YAP SALES CONSULTANT Ot M25.562 PAIN IN LEFT KNEE 03/05/2017 MISSY YAP Ot X50.1XXA OVEREXERTION FROM PROLONGED STATIC OR AW 03/05/2017 MISSY YAP SALES CONSULTANT Ot Y93.41 ACTIVITY, DANCING 03/05/2017 MISSY YAPP Ot M94.8X8 OTHER SPECIFIED DISORDERS OF CARTILAGE, 03/05/2017 MISSY YAP SALES CONSULTANT Ot S89.92XA UNSPECIFIED INJURY OF LEFT LOWER LEG, IN 03/05/2017 MISSY YAP SALES CONSULTANT Ot X50.0XXA OVEREXERTION FROM STRENUOUS MOVEMENT OR 03/05/2017 MISSY YAP SALES CONSULTANT Ot Y93.41 ACTIVITY, DANCING 03/05/2017 REECE WELSH DO Ot M25.562 PAIN IN LEFT KNEE 03/05/2017 GLORIA PEOPLES CARPET FLOOR LAYER APPRENTICE Ot N28.1 CYST OF KIDNEY, ACQUIRED 03/05/2017 GLORIA PEOPLES CARPET FLOOR LAYER APPRENTICE Ot R51 HEADACHE 03/05/2017 GLORIA PEOPLES CARPET FLOOR LAYER APPRENTICE Ot S09.90XA UNSPECIFIED INJURY OF HEAD, INITIAL ENCO 03/05/2017 GLORIA PEOPLES CARPET FLOOR LAYER APPRENTICE Ot X58.XXXA EXPOSURE TO OTHER SPECIFIED FACTORS, INI 03/05/2017 GLORIA PEOPLES CARPET FLOOR LAYER APPRENTICE Ot Y99.8 OTHER EXTERNAL CAUSE STATUS 03/05/2017 MISSY YAPP Ot M25.562 PAIN IN LEFT KNEE 03/05/2017 MISSY YAP Ot X50.1XXA OVEREXERTION FROM PROLONGED STATIC OR AW 03/05/2017 MISSY YAP SALES CONSULTANT Ot Y93.41 ACTIVITY, DANCING 03/05/2017 MISSY YAP SALES CONSULTANT Ot M94.8X8 OTHER SPECIFIED DISORDERS OF CARTILAGE, 03/05/2017 MISSY YAP SALES CONSULTANT Ot S89.92XA UNSPECIFIED INJURY OF LEFT LOWER LEG, IN 03/05/2017 MISSY YAP SALES CONSULTANT Ot X50.0XXA OVEREXERTION FROM STRENUOUS MOVEMENT OR 03/05/2017 MISSY YAP SALES CONSULTANT Ot Y93.41 ACTIVITY, DANCING 03/06/2017 WILBERTO WARREN FACC, HERBERT FACP CCDS Ot D72.829 ELEVATED WHITE BLOOD CELL COUNT, UNSPECI 03/06/2017 WILBERTO WARREN FACC, HERBERT FACP CCDS Ot E03.9 HYPOTHYROIDISM, UNSPECIFIED 03/06/2017 WILBERTO WARREN FACC, HERBERT FACP CCDS Ot I48.92 UNSPECIFIED ATRIAL FLUTTER 03/06/2017 WILBERTO WARREN FACC, HERBERT FACP CCDS Ot D72.829 ELEVATED WHITE BLOOD CELL COUNT, UNSPECI 03/06/2017 WILBERTO WARREN FACC, ALI FACP CCDS Ot E03.9 HYPOTHYROIDISM, UNSPECIFIED 03/06/2017 WILBERTO WARREN FAC, ALI FACP CCDS Ot I48.92 UNSPECIFIED ATRIAL FLUTTER 03/13/2017 YAPMISSY Richa SALES CONSULTANT Ot M94.8X8 OTHER SPECIFIED DISORDERS OF CARTILAGE, 03/13/2017 MISSY YAP SALES CONSULTANT Ot S89.92XA UNSPECIFIED INJURY OF LEFT LOWER LEG, IN 03/13/2017 MISSY YAP Ot X50.0XXA OVEREXERTION FROM STRENUOUS MOVEMENT OR 03/13/2017 YAPMISSY Richa SALES CONSULTANT Ot Y93.41 ACTIVITY, DANCING 04/23/2017 ROBINA PEOPLES APRN Ot G47.33 OBSTRUCTIVE SLEEP APNEA (ADULT) (PEDIATR 04/24/2017 ROBINA PEOPLES APRN Ot G47.33 OBSTRUCTIVE SLEEP APNEA (ADULT) (PEDIATR Procedures Code Description Performed By Performed On [...] <=0.05 miu/l (units/ volume) 5.23 u[iU]/mL 0.35-4.94 Complete blood count (CBC) with automated white blood cell (WBC) differential - 03/06/17 04:15 Blood leukocytes automated count (number/volume) 8.1 10*3/uL 4.3-11.0 Blood erythrocytes automated count (number/volume) 4.37 10*6/uL 4.35-5.85 Venous blood hemoglobin measurement (mass/volume) 14.3 g/dL 11.5-16.0 Blood hematocrit (volume fraction) 40 % 35-52 Automated erythrocyte mean corpuscular volume 92 [foz_us] 80-99 Automated erythrocyte mean corpuscular hemoglobin (mass per erythrocyte) 33 pg 25-34 Automated erythrocyte mean corpuscular hemoglobin concentration measurement ( mass/volume) 36 g/dL 32-36 Automated erythrocyte distribution width ratio 12.0 % 10.0-14.5 Automated blood platelet count (count/volume) 275 10*3/uL 130-400 Automated blood platelet mean volume measurement 10.0 [foz_us] 7.4-10.4 Automated blood neutrophils/100 leukocytes 56 % 42-75 Automated blood lymphocytes/100 leukocytes 34 % 12-44 Blood monocytes/100 leukocytes 7 % 0-12 Automated blood eosinophils/100 leukocytes 3 % 0-10 Automated blood basophils/100 leukocytes 0 % 0-10 Blood neutrophils automated count (number/volume) 4.5 10*3 1.8-7.8 Blood lymphocytes automated count (number/volume) 2.7 10*3 1.0-4.0 Blood monocytes automated count (number/volume) 0.6 10*3 0.0-1.0 Automated eosinophil count 0.3 10*3/uL 0.0-0.3 Automated blood basophil count (count/volume) 0.0 10*3/uL 0.0-0.1 Comprehensive metabolic panel - 03/06/17 04:15 Serum or plasma sodium measurement (moles/volume) 140 mmol/L 135-145 Serum or plasma potassium measurement (moles/volume) 3.9 mmol/L 3.6-5.0 Serum or plasma chloride measurement (moles/volume) 109 mmol/L 98-107 Carbon dioxide 20 mmol/L 21-32 Serum or plasma anion gap determination (moles/volume) 11 mmol/L 5-14 Serum or plasma urea nitrogen measurement (mass/volume) 14 mg/dL 7-18 Serum or plasma creatinine measurement (mass/volume) 0.74 mg/dL 0.60-1.30 Serum or plasma urea nitrogen/creatinine mass ratio 19 NRG Serum or plasma creatinine measurement with calculation of estimated glomerular filtration rate > NRG Serum or plasma glucose measurement (mass/volume) 83 mg/dL 70-105 Serum or plasma calcium measurement (mass/volume) 8.1 mg/dL 8.5-10.1 Serum or plasma total bilirubin measurement (mass/volume) 0.7 mg/dL 0.1-1.0 Serum or plasma alkaline phosphatase measurement (enzymatic activity/volume) 46 U/L 40-136 Serum or plasma aspartate aminotransferase measurement (enzymatic activity/ volume) 16 U/L 5-34 Serum or plasma alanine aminotransferase measurement (enzymatic activity/volume ) 16 U/L 0-55 Serum or plasma protein measurement (mass/volume) 5.9 g/dL 6.4-8.2 Serum or plasma albumin measurement (mass/volume) 3.7 g/dL 3.2-4.5 Magnesium - 03/06/17 04:15 Magnesium 2.5 mg/dL 1.8-2.4 Serum or plasma troponin i.cardiac measurement (mass/volume) - 03/06/17 04:15 Serum or plasma troponin i.cardiac measurement (mass/volume) 0.35 ng /mL <0.30 Lipid 1996 panel - 03/06/17 04:15 Serum or plasma triglyceride measurement (mass/volume) 107 mg/dL <150 Serum or plasma cholesterol measurement (mass/volume) 189 mg/dL < 200 Serum or plasma cholesterol in HDL measurement (mass/volume) 31 mg/ dL 40-60 Cholesterol in LDL [mass/volume] in serum or plasma by direct assay 142 mg/dL 1-129 Serum or plasma cholesterol in VLDL measurement (mass/volume) 21 mg/ dL 5-40 THYROID STIMULATING HORMONE - 03/06/17 04:15 THYROID STIMULATING HORMONE 5.18 u[iU]/mL 0.35-4.94 Encounters ACCT No. Visit Date/Time Discharge Status Pt. Type Provider Facility Loc./Unit Complaint [id number] 04/22/2017 20:00:00 04/23/2017 05:55:00 DIS Outpatient ROBINA PEOPLES APRN [facility] SLEEP G47.33 [id number] 03/12/2017 10:45:00 03/12/2017 23:59:59 CLS Outpatient STACIE BRIDGES [facility] CARD I48.92 [id number] 03/05/2017 13:40:00 03/06/2017 10:27:00 DIS Inpatient WILBERTO WARREN FACCHERBERT FACP CCDS [facility] ICU A-FLUTTER WITH RVR,ELEVATED TROPONIN [id number] 02/15/2017 18:08:00 02/15/2017 23:59:59 CLS Outpatient MISSY YAP [facility] RAD KNEE PAIN [id number] 02/08/2017 14:26:00 02/08/2017 23:59:59 CLS Outpatient MISSY YAP [facility] RAD L KNEE PAIN [id number] 05/08/2016 16:03:00 05/08/2016 23:59:59 CLS Outpatient GLORIA PEOPLES APRN [facility] RAD HEAD TRAUMA [id number] 04/08/2015 10:45:00 04/08/2015 23:59:59 CLS Outpatient GLORIA PEOPLES APRN [facility] RAD ABD PAIN [id number] 12/08/2014 14:31:00 12/08/2014 23:59:59 CLS Outpatient REECE WELSH DO [facility] RAD LT KNEE PAIN [id number] 10/10/2014 16:40:00 10/10/2014 17:04:00 DIS Emergency NITESH WARREN, BRANDIE Romo [facility] ER RIGHT WRIST SORENESS [id number] 05/06/2012 23:41:00 Document Registration [id number] 09/04/2011 09:30:00 Document Registration [id number] 08/24/2011 11:42:00 Document Registration
[2017-05-22] MEDS ORDERED: NS IV 1000 ML 1,000 ML IV SCH (08:29)
[2017-05-22] MEDS ORDERED: VERAPAMIL 10 MG/4 ML (CALAN) VIAL IV ONE (08:45)
[2017-05-22 08:47] LABS: BASOPHILS % (AUTO) 0 % (0-10); EOSINOPHILS # (AUTO) 0.2 10^3/uL (0.0-0.3); EOSINOPHILS % (AUTO) 2 % (0-10); HEMATOCRIT 50 % (35-52); HEMOGLOBIN 17.9 G/DL (11.5-16.0); LYMPHOCYTES # (AUTO) 1.9 X 10^3 (1.0-4.0); LYMPHOCYTES % (AUTO) 24 % (12-44); MEAN CORPUSCULAR HEMOGLOBIN 33 PG (25-34); MEAN CORPUSCULAR HGB CONC 36 G/DL (32-36); MEAN CORPUSCULAR VOLUME 91 FL (80-99); MEAN PLATELET VOLUME 10.3 FL (7.4-10.4); MONOCYTES # (AUTO) 0.5 X 10^3 (0.0-1.0); MONOCYTES % (AUTO) 6 % (0-12); NEUTROPHILS # (AUTO) 5.3 X 10^3 (1.8-7.8); NEUTROPHILS % (AUTO) 68 % (42-75); PLATELET COUNT 320 10^3/uL (130-400); RED BLOOD COUNT 5.48 10^6/uL (4.35-5.85); RED CELL DISTRIBUTION WIDTH 12.2 % (10.0-14.5); WHITE BLOOD COUNT 7.9 10^3/uL (4.3-11.0)
[2017-05-22 08:58] LABS: INR 1.4 (0.8-1.4); PROTHROMBIN TIME PATIENT 17.2 SEC (12.2-14.7)
[2017-05-22 09:05] LABS: ALANINE AMINOTRANSFERASE 20 U/L (0-55); ALBUMIN 4.6 GM/DL (3.2-4.5); ALKALINE PHOSPHATASE 57 U/L (40-136); BILIRUBIN,TOTAL 0.6 MG/DL (0.1-1.0); BUN/CREATININE RATIO 18; CALCIUM 9.4 MG/DL (8.5-10.1); CARBON DIOXIDE 21 MMOL/L (21-32); CHLORIDE 109 MMOL/L (98-107); CREATININE SERUM 0.79 MG/DL (0.60-1.30); GFR ESTIMATED > 60; GLUCOSE 98 MG/DL (70-105); MAGNESIUM 2.1 MG/DL (1.8-2.4); POTASSIUM 4.2 MMOL/L (3.6-5.0); SODIUM 140 MMOL/L (135-145); TOTAL PROTEIN 7.3 GM/DL (6.4-8.2)
[2017-05-22 09:24] LABS: MYOGLOBIN SERUM 22.7 NG/ML (10.0-92.0)
[2017-05-22] MEDS ORDERED: DILT240C53 PO (09:24)
--- NOTE | 2017-05-22 09:27 | ED Cardiac General ---
History of Present Illness General Chief Complaint: Cardiac/General Problems Stated Complaint: HEART RATE ISSUES Nursing Triage Note: pt ambulated to room 5. c/o high heart rate and palpitations this am. accompanied by . Source: patient Exam Limitations: no limitations History of Present Illness Date Seen by Provider: May 22, 2017 Time Seen by Provider: 08:23 Initial Comments This 32-year-old young lady presents to the emergency room with complaints of recurrent atrial flutter with rapid ventricular response. She takes Cartia XT and flecainide. Symptoms started last night and she took an extra flecainide dose as instructed. Symptoms persisted into this morning. She is feeling lightheaded and weak. Heart rate at home was in the 130s. Patient is anticoagulated on Eliquis. She follows with Dr. Hogan for electrophysiology and has an ablation scheduled for June 14. She has already taken her medications for this morning. Allergies and Home Medications Allergies Coded Allergies: Penicillins (Verified Allergy, Unknown, 02/23/08) Home Medications Apixaban 5 Mg Tablet, 5 MG PO BID, (Reported) Diltiazem HCl 240 Mg Cap.er.24h, 240 MG PO DAILY, (Reported) Flecainide Acetate 50 Mg Tablet, 50 MG PO BID, (Reported) Patient Home Medication List Home Medication List Reviewed: Yes Review of Systems Constitutional: see HPI EENTM: No Symptoms Reported Respiratory: No Symptoms Reported Cardiovascular: See HPI Gastrointestinal: No Symptoms Reported Genitourinary: No Symptoms Reported Musculoskeletal: no symptoms reported Skin: no symptoms reported Psychiatric/Neurological: No Symptoms Reported Endocrine: No Symptoms Reported Hematologic/Lymphatic: See HPI Past Bldtdec-Tgfdqy-Kscuzr Hx Patient Social History Alcohol Use: Denies Use Recreational Drug Use: No Smoking Status: Never a Smoker 2nd Hand Smoke Exposure: No Recent Foreign Travel: No Contact w/Someone Who Travel: No Recent Infectious Disease Expo: No Recent Hopitalizations: No Physical Abuse: No Sexual Abuse: No Seasonal Allergies Seasonal Allergies: Yes Surgeries History of Surgeries: Yes Surgeries: Section, Orthopedic Respiratory History of Respiratory Disorde: No Cardiovascular History of Cardiac Disorders: Yes (paroxysmal atrial flutter with RVR, anticoagulated) Neurological History of Neurological Disord: Yes (concussion in 2017) Neurological Disorders: Concussion Reproductive System : No Last Menstrual Period: May 15, 2017 Hx Reproductive Disorders: No Sexually Transmitted Disease: No Genitourinary History of Genitourinary Disor: No Gastrointestinal History of Gastrointestinal Di: No Musculoskeletal History of Musculoskeletal Dis: No Endocrine History of Endocrine Disorders: No HEENT History of HEENT Disorders: Yes (glasses) Cancer History of Cancer: No Psychosocial History of Psychiatric Problem: No Suicide Risk Score: 0 Integumentary History of Skin or Integumenta: No Blood Transfusions History of Blood Disorders: No Adverse Reaction to a Blood Tr: No Family Medical History Family Medial History: Hypertension 19 FATHER 19 MOTHER Physical Exam Vital Signs Vital Signs - First Documented 05/22/17 08:22 Temp 97.9 Pulse 142 Resp 18 B/P (MAP) 131/111 (118) Pulse Ox 100 O2 Delivery Room Air Capillary Refill : Less Than 3 Seconds General Appearance: No Apparent Distress, WD/WN HEENT: PERRL/EOMI, Normal ENT Inspection Neck: Normal Inspection Respiratory: Lungs Clear, Normal Breath Sounds, No Accessory Muscle Use, No Respiratory Distress Cardiovascular: No Edema, No Murmur, Tachycardia Extremity: Normal Inspection, No Pedal Edema Neurologic/Psychiatric: Alert, Oriented x3, No Motor/Sensory Deficits, Normal Mood/Affect, acute coordinator II-XII Norm as Tested Skin: Normal Color, Warm/Dry Progress/Results/Core Measures Results/Orders Lab Results Laboratory Tests Test 05/22/17 08:35 Range/Units White Blood Count 7.9 4.3-11.0 10^3/uL Red Blood Count 5.48 4.35-5.85 10^6/uL Hemoglobin 17.9 H 11.5-16.0 G/DL Hematocrit 50 35-52 % Mean Corpuscular Volume 91 80-99 FL Mean Corpuscular Hemoglobin 33 25-34 PG Mean Corpuscular Hemoglobin Concent 36 32-36 G/DL Red Cell Distribution Width 12.2 10.0-14.5 % Platelet Count 320 130-400 10^3/uL Mean Platelet Volume 10.3 7.4-10.4 FL Neutrophils (%) (Auto) 68 42-75 % Lymphocytes (%) (Auto) 24 12-44 % Monocytes (%) (Auto) 6 0-12 % Eosinophils (%) (Auto) 2 0-10 % Basophils (%) (Auto) 0 0-10 % Neutrophils # (Auto) 5.3 1.8-7.8 X 10^3 Lymphocytes # (Auto) 1.9 1.0-4.0 X 10^3 Monocytes # (Auto) 0.5 0.0-1.0 X 10^3 Eosinophils # (Auto) 0.2 0.0-0.3 10^3/uL Basophils # (Auto) 0.0 0.0-0.1 10^3/uL Prothrombin Time 17.2 H 12.2-14.7 SEC INR Comment 1.4 0.8-1.4 Activated Partial Thromboplast Time 37 H 24-35 SEC Sodium Level 140 135-145 MMOL/L Potassium Level 4.2 3.6-5.0 MMOL/L Chloride Level 109 H 98-107 MMOL/L Carbon Dioxide Level 21 21-32 MMOL/L Anion Gap 10 5-14 MMOL/L Blood Urea Nitrogen 14 7-18 MG/DL Creatinine 0.79 0.60-1.30 MG/DL Estimat Glomerular Filtration Rate > 60 BUN/Creatinine Ratio 18 Glucose Level 98 70-105 MG/DL Calcium Level 9.4 8.5-10.1 MG/DL Magnesium Level 2.1 1.8-2.4 MG/DL Total Bilirubin 0.6 0.1-1.0 MG/DL Aspartate Amino Transf (AST/SGOT) 18 5-34 U/L Alanine Aminotransferase (ALT/SGPT) 20 0-55 U/L Alkaline Phosphatase 57 40-136 U/L Myoglobin 22.7 10.0-92.0 NG/ML Troponin I < 0.30 <0.30 NG/ML Total Protein 7.3 6.4-8.2 GM/DL Albumin 4.6 H 3.2-4.5 GM/DL TSH Bowman Testing 4.31 0.35-4.94 UIU/ML My Orders Orders - SAURABH GILL MD Ekg Tracing (05/22/17 08:24) Cbc With Automated Diff (05/22/17 08:29) Magnesium (05/22/17 08:29) Chest 1 View, Ap/Pa Only (05/22/17 08:29) Cardiac Profile 1 (05/22/17 08:29) Comprehensive Metabolic Panel (05/22/17 08:29) Myoglobin Serum (05/22/17 08:29) Protime With Inr (05/22/17 08:29) Partial Thromboplastin Time (05/22/17 08:29) O2 (05/22/17 08:29) Monitor-Rhythm Ecg Trace Only (05/22/17 08:29) Lipid Panel (05/23/17 06:00) Saline Lock/Iv-Start (05/22/17 08:29) Ns Iv 1000 Ml (Sodium Chloride 0.9%) (05/22/17 08:29) Thyroid Analyzer (05/22/17 08:39) Verapamil Injection (Calan Injection) (05/22/17 08:45) Medications Given in ED Current Medications Medications Dose Ordered Sig/Paige Route Start Time Stop Time Status Last Admin Dose Admin Verapamil HCl 5 mg ONCE ONCE IV 05/22/17 08:45 05/22/17 08:46 DC 05/22/17 09:01 5 MG Vital Signs/I&O Vital Sign - Last 12Hours 05/22/17 08:22 Temp 97.9 Pulse 142 Resp 18 B/P (MAP) 131/111 (118) Pulse Ox 100 O2 Delivery Room Air Blood Pressure Mean: 118 Progress Note : Progress Note Patient was found to be in atrial flutter with RVR. She was given verapamil 5 mg by IV route. Cardizem is presently on nationwide shortage. Blood pressure remained stable. A liter of IV fluids was infused. Case was discussed with Dr. Mak who presented to the emergency room to assess the patient. He recommended admission for observation and possible cardioversion tomorrow if she does not convert on her own. We will continue home medications. Dr. Mak has agreed to be the attending physician as Dr. Pacheco will be unavailable after 17:00. ECG Initial ECG Impression Date: May 22, 2017 Initial ECG Impression Time: 08:22 Initial ECG Rate: 133 Initial ECG Rhythm: A Fib/Flutter Comment Atrial flutter with 2:1 conduction with a heart rate of 133. Repolarization abnormality could suggest ischemia. Diagnostic Imaging Diagonstic Imaging: Xray Plain Films/CT/US/NM/MRI: chest Comments NAME: [facility] REC#: [id number] PT STATUS: REG ER : 1985 PHYSICIAN: SAURABH GILL MD ADMIT DATE: 05/22/17/ER Signed Date of Exam: 05/22/17 CHEST 1 VIEW, AP/PA ONLY INDICATION: Palpitations and tachycardia. COMPARISON: 03/05/2017. FINDINGS: An upright portable view of the chest was obtained. The heart size is normal. The pulmonary vessels appear unremarkable. There is no pneumothorax, mediastinal widening, or pleural fluid. The lungs are clear. IMPRESSION: No acute abnormality is demonstrated. No significant interval change from the prior study. Dictated by: Dictated on workstation # [id number] Dict: 05/22/17931 Trans: 05/22/17936 Interpreted by: ULISSES BRAVO DO Electronically signed by: ULISSES BRAVO DO 05/22/1737 Departure Communication (Admissions) Time/Spoke to Admitting Phy: 09:[address] Mak Impression Impression: Primary Impression: Atrial flutter with rapid ventricular response Disposition: ADMITTED INPATIENT Condition: Stable Admissions Decision to Admit Reason: Admit from ER (General) Decision to Admit/Date: May 22, 2017 Time/Decision to Admit Time: 09:00 Departure-Patient Inst. Referrals: MARLENE PACHECO MD (PCP/Family) Primary Care Physician SAURABH GILL MD May 22, 2017 09:27
--- NOTE | 2017-05-22 09:35 | Diagnostic Imaging Report ---
INDICATION: Palpitations and tachycardia. COMPARISON: 03/05/2017. FINDINGS: An upright portable view of the chest was obtained. The heart size is normal. The pulmonary vessels appear unremarkable. There is no pneumothorax, mediastinal widening, or pleural fluid. The lungs are clear. IMPRESSION: No acute abnormality is demonstrated. No significant interval change from the prior study. Dictated by: Dictated on workstation # [id number]
--- OUTSIDE RECORDS SUMMARY | 2017-05-22 09:51 | XMS REPORT | Continuity of Care Document ---
Author Author [employer] Organization [facility] Address Unknown Phone Unavailable Care Team Providers Care Knife Glazer Name Role Phone [employer] Unavailable Unavailable Problems Medications Allergies, Adverse Reactions, Alerts Immunizations Results Vital Signs Encounters Location Location Details Encounter Type Encounter Number Reason For Visit Attending Provider ADM Date DC Date Status Source OUTPATIENT [id number] BETITO CHIN 05/06/2017 Active [facility] O Active [facility] O [id number] BETITO CHIN Active [facility] Procedures Plan of Care Social History Assessment and Plan Family History Advance Directives Functional Status
--- OUTSIDE RECORDS SUMMARY | 2017-05-22 09:52 | XMS REPORT | Encounter Summary ---
Author Author [facility] Organization [facility] Address Unknown Phone Unavailable Care Team Providers Care Manager Wastewater Name Role Phone Nilda Pacheco MD PCP Reason for Visit * Reason Comments New Patient Possible Ablation/A-flutter Encounter Details Date Type Department Care Team Description 05/06/2017 Office Visit [facility] Cardiology John Don MD New Patient (Possible [address] [place] Ablation/A-flutter) [address] [place] [address] [place] [address] [phone] Social History Tobacco Use Types Packs/Day Years Used Date Never Smoker Smokeless Tobacco: Never Used Alcohol Use Drinks/Week oz/Week Comments Yes rarely Sex Assigned at Date Recorded Not on file as of this encounter Last Filed Vital Signs Vital Sign Reading Time Taken Blood Pressure 124/76 05/06/2017 8:51 AM AUDIOLOGY DOCTOR Pulse 61 05/06/2017 8:51 AM AUDIOLOGY DOCTOR Temperature - - Respiratory Rate - - Oxygen Saturation - - Inhaled Oxygen - - Concentration Weight 90.4 kg (199 lb 6.4 oz) 05/06/2017 8:51 AM AUDIOLOGY DOCTOR Height 167.6 cm (5' 6") 05/06/2017 8:51 AM AUDIOLOGY DOCTOR Body Mass Index 32.18 05/06/2017 8:51 AM AUDIOLOGY DOCTOR in this encounter Instructions * Patient Instructions - Maricarmen Shah RN - 05/06/2017 9:00 AM AUDIOLOGY DOCTOR Continue flecainide 50 mg twice daily Flecainide as a ntak-gv-vik-pocket approach. I advised her to take 100 [...] NON-URGENT questions please contact us through your [employer] account. For all medication refills please contact your pharmacy or send a request through [employer]. For all questions that may need to be addressed urgently please call the nursing triage line at [phone] Saturday - Saturday 8-5 only. Please leave a detailed message with your name, date of , and reason for your call. To schedule an appointment call [phone]. Please allow 10-15 business days for the results of any testing to be reviewed. Please call our office if you have not heard from a nurse within this time frame. in this encounter Plan of Treatment Date Type Specialty Care Team Description 06/14/2017 Surgery Cardiology John Don MD INTRACARDIAC CATHETER [address] [place] [address] ELECTROPHYSIOLOGIC [phone] EVALUATION - TYPICAL FLUTTER 06/14/2017 Procedure Pass Cardiology 06/14/2017 [facility] Cardiology John Don MD Encounter [address] [place] [address] [phone] Name Priority Associated Diagnoses Order Schedule ECG 12-LEAD Routine Typical atrial flutter Ordered: 05/06/2017 (HCC) as of this encounter Visit Diagnoses Diagnosis Typical atrial flutter (HCC) - Primary Atrial flutter
--- OUTSIDE RECORDS SUMMARY | 2017-05-22 09:52 | XMS REPORT | Encounter Summary ---
Author Author [facility] Organization [facility] Address Unknown Phone Unavailable Care Team Providers Care Telemetry Nurse Name Role Phone Nilda Pacheco MD PCP Reason for Visit * Reason Comments EP Pre-Procedure 06/14 EPS - RFA Instructions Encounter Details Date Type Department Care Team Description 05/17/2017 Documentation [facility] Maricarmen Holbrook RN EP Pre-Procedure [address] Instructions (06/14 EPS - [address] [place]FA) [place] [address] Social History Tobacco Use Types [...] Don. ARRIVAL TIME: Please report to the [facility] admitting office on the ground floor of the [facility] on: 06/14/17 The EP Lab will call to notify you of your arrival time. They will call on the business day prior to your procedure. (If you have any questions regarding your arrival time for the Electrophysiology Lab, please call the EP Lab at [phone].) PRE-PROCEDURE APPOINTMENTS: 05/14/17 Dr Don will update morning of procedure Office visit to update history and physical (requirement within 30 days of procedure) with Dr. John Don at [facility] 06/07/17 Pre-Admission lab work: BMP, [...] your health insurance card(s). Arrange for a gas truck driver to take you home from the [...] [address]BLATION WITH [address] [place] [address] ELECTROPHYSIOLOGIC [phone] EVALUATION - TYPICAL FLUTTER 06/14/2017 Procedure Pass Cardiology 06/14/2017 [facility] Cardiology John Don MD Encounter [address] [place] [address] [phone] Name Priority Associated Diagnoses Order Schedule CBC Routine Typical atrial flutter Expected: 06/07/2017 (HCC) (Approximate), Expires: Palpitations 05/17/2018 BASIC METABOLIC PANEL Routine Typical atrial flutter Expected: 2017 (HCC) (Approximate), Expires: Palpitations 05/17/2018 MAGNESIUM Routine Typical atrial flutter Expected: 06/07/2017 ([facility]) (Approximate), Expires: Palpitations 05/17/2018 as of this encounter Visit Diagnoses Diagnosis Typical atrial flutter (HCC) - Primary Atrial flutter Palpitations
--- OUTSIDE RECORDS SUMMARY | 2017-05-22 09:52 | XMS REPORT | Encounter Summary ---
Author Author [facility] Organization [facility] Address Unknown Phone Unavailable Care Team Providers Care Crime Prevention Police Officer Name Role Phone PCP Unavailable Encounter Details Date Type Department Care Team Description 06/14/2017 Procedure Pass [facility] EP LAB [address] [place] [address] Social History Tobacco Use Types Packs/Day Years Used Date Never Smoker Smokeless Tobacco: Never Used Alcohol Use Drinks/Week oz/Week Comments Yes rarely Sex Assigned at Date Recorded Not on file as of this encounter Plan of Treatment Date Type Specialty Care Team Description 06/14/2017 Surgery Cardiology John Don MD INTRACARDIAC CATHETER [address]BLATION WITH [address] [place] [address] ELECTROPHYSIOLOGIC [phone] EVALUATION - TYPICAL FLUTTER 06/14/2017 Procedure Pass Cardiology 06/14/2017 [facility] Cardiology John Don MD Encounter [address] [place] [address] [phone] as of this encounter Visit Diagnoses Not on filein this encounter
--- OUTSIDE RECORDS SUMMARY | 2017-05-22 09:52 | XMS REPORT | Encounter Summary ---
Author Author [facility] Organization [facility] Address Unknown Phone Unavailable Care Team Providers Care Officer Lieutenant Name Role Phone Nilda Pacheco MD PCP Reason for Visit * Reason Comments New Patient A-Flutter Encounter Details Date Type Department Care Team Description 04/15/2017 Patient Profile [facility] GretchenRemy russelljay New Patient (A-Flutter) [address] [place] [address] Social History Tobacco Use Types Packs/Day Years Used Date Never Smoker Smokeless Tobacco: Never Used Alcohol Use Drinks/Week oz/Week Comments Yes rarely Sex Assigned at Date Recorded Not on file as of this encounter Progress Notes * GretchenEdgar russell - 04/15/2017 10:11 AM ADULT SERVICES LIBRARIAN LMOM for pt to call back to complete pt profile. 04/15/17 in this encounter Plan of Treatment Date Type Specialty Care Team Description 06/14/2017 Surgery Cardiology John Don MD INTRACARDIAC CATHETER [address]BLATION WITH [address] [place] [address] ELECTROPHYSIOLOGIC [phone] EVALUATION - TYPICAL FLUTTER 06/14/2017 Procedure Pass Cardiology 06/14/2017 Hospital Cardiology John Don MD Encounter [address] [place] [address] [phone] as of this encounter Visit Diagnoses Not on filein this encounter
--- OUTSIDE RECORDS SUMMARY | 2017-05-22 09:52 | XMS REPORT | Encounter Summary ---
Author Author [facility] Organization [facility] Address Unknown Phone Unavailable Care Team Providers Care Vp Production Name Role Phone Nilda Pacheco MD PCP Encounter Details Date Type Department Care Team Description 05/17/2017 Orders Only [facility] Maricarmen Shah RN Typical atrial flutter [address] [place] (HCC); [address] Acquired hypothyroidism; [place] [address] Palpitations [phone] Social History Tobacco Use Types Packs/Day Years [...] [address] [place] [address] ELECTROPHYSIOLOGIC [phone] EVALUATION - TYPICAL FLUTTER 06/14/2017 Procedure Pass Cardiology 06/14/2017 Hospital Cardiology John Don MD Encounter [address] [place] [address] [phone] as of this encounter Visit Diagnoses Diagnosis Typical atrial flutter (HCC) Atrial flutter Acquired hypothyroidism Unspecified hypothyroidism Palpitations
--- OUTSIDE RECORDS SUMMARY | 2017-05-22 09:52 | XMS REPORT | Encounter Summary ---
Author Author [facility] Organization [facility] Address Unknown Phone Unavailable Care Team Providers Care Integration Software Engineer Name Role Phone Nilda Pacheco MD PCP Encounter Details Date Type Department Care Team Description 06/14/2017 Surgery [facility] EP LAB John Don MD INTRACARDIAC CATHETER [address] [place] [address] [address] COMPREHENSIVE [phone] [place] [address] ELECTROPHYSIOLOGIC [phone] EVALUATION - TYPICAL FLUTTER Social History Tobacco Use Types Packs/Day Years Used Date Never Smoker Smokeless Tobacco: Never Used Alcohol Use Drinks/Week oz/Week Comments Yes rarely Sex Assigned at Date Recorded Not on file as of this encounter Plan of Treatment Date Type Specialty Care Team Description 06/14/2017 Surgery Cardiology John Don MD INTRACARDIAC CATHETER [address]BL[address] [place] [address] ELECTROPHYSIOLOGIC [phone] EVALUATION - TYPICAL FLUTTER 06/14/2017 Procedure Pass Cardiology 06/14/2017 [facility] Cardiology John Don MD Encounter [address] [place] [address] [phone] as of this encounter Visit Diagnoses Not on filein this encounter Admitting Diagnoses Diagnosis Atrial Flutter
--- OUTSIDE RECORDS SUMMARY | 2017-05-22 09:52 | XMS REPORT | Encounter Summary ---
Author Author [facility] Organization [facility] Address Unknown Phone Unavailable Care Team Providers Care Animal Cop Name Role Phone Nilda Pacheco MD PCP Reason for Visit * Reason Comments Procedure EPS -Atrial Flutter changed to 06/14 Encounter Details Date Type Department Care Team Description 05/17/2017 Telephone [facility] Cardiology Maricarmen Shah RN Procedure (EPS -Atrial [address] [place] Flutter changed to 06/14) [address] [place] [address] Social History Tobacco Use Types Packs/Day Years [...] [address] [place] [address] ELECTROPHYSIOLOGIC [phone] EVALUATION - TYPICAL FLUTTER 06/14/2017 Procedure Pass Cardiology 06/14/2017 [facility] Cardiology John Don MD Encounter [address] [facility] [address] [place], [place] [address] as of this encounter Visit Diagnoses Not on filein this encounter
--- OUTSIDE RECORDS SUMMARY | 2017-05-22 09:52 | XMS REPORT | Encounter Summary ---
Author Author [facility] Organization [facility] Address Unknown Phone Unavailable Care Team Providers Care Manager Salt Name Role Phone PCP Unavailable Encounter Details Date Type Department Care Team Description 06/14/2017 Hospital Cardiac Catheterization John Don MD Encounter Laboratory [address] [place] [address] [place] [address] [phone] Social History Tobacco Use Types Packs/Day Years Used Date Never Smoker Smokeless Tobacco: Never Used Alcohol Use Drinks/Week oz/Week Comments Yes rarely Sex Assigned at Date Recorded Not on file as of this encounter Plan of Treatment Date Type Specialty Care Team Description 06/14/2017 Surgery Cardiology John Don MD INTRACARDIAC CATHETER [address] [place] [address] ELECTROPHYSIOLOGIC [phone] EVALUATION - TYPICAL FLUTTER 06/14/2017 Procedure Pass Cardiology 06/14/2017 [facility] Cardiology John Don MD Encounter [address] [place] [address] [phone] as of this encounter Visit Diagnoses Not on filein this encounter Admitting Diagnoses Diagnosis Atrial Flutter
--- OUTSIDE RECORDS SUMMARY | 2017-05-22 09:52 | XMS REPORT | Clinical Summary ---
Author Author [facility] Organization [facility] Address Unknown Phone Unavailable Care Team Providers Care College Intern Name Role Phone Nilda Pacheco MD PCP Source Comments Some departments are not documenting in the electronic medical record. If you do not see the information that you expected, contact Release of Information in the Health Information Management department at [phone] for further assistance in locating additional records.[facility] Allergies Active Allergy Reactions [...] Hoyt Records Request (Kortney Adair MD| Via [facility] () [phone] or [phone]) 04/15/2017 Documentation Cardiology Edgar Hoyt Records Request (Nilda Pacheco MD/ [facility] () [phone]) from Last 3 Months Family History Medical [...] Taken Blood Pressure 124/76 05/06/2017 8:51 AM FILAMENT COIL WINDER Pulse 61 05/06/2017 8:51 AM FILAMENT COIL WINDER Temperature - - Respiratory Rate - - Oxygen Saturation - - Inhaled Oxygen - - Concentration Weight 90.4 kg (199 lb 6.4 oz) 05/06/2017 8:51 AM FILAMENT COIL WINDER Height 167.6 cm (5' 6") 05/06/2017 8:51 AM FILAMENT COIL WINDER Body Mass Index 32.18 05/06/2017 8:51 AM FILAMENT COIL WINDER Plan of Treatment Date Type Specialty Care Team Description 06/14/2017 Surgery Cardiology John Don MD INTRACARDIAC CATHETER [address] ABLATION WITH [address] [place] [address] ELECTROPHYSIOLOGIC [phone] EVALUATION - TYPICAL FLUTTER 06/14/2017 Procedure Pass Cardiology 06/14/2017 Hospital Cardiology John Don MD Encounter [address] [place] [address] Health Maintenance Due Date Last Done Comments PHYSICAL (COMPREHENSIVE) 01/06/1992 EXAM PERTUSSIS VACCINE 01/06/1996 HIV SCREENING 01/06/2000 TETANUS VACCINE 2002 CERVICAL CANCER SCREENING 2015 INFLUENZA VACCINE 12/02/2017 Results Not on filefrom Last 3 Months
--- OUTSIDE RECORDS SUMMARY | 2017-05-22 09:52 | XMS REPORT | Encounter Summary ---
Author Author [facility] Organization [facility] Address Unknown Phone Unavailable Care Team Providers Care Superintendent Sales Name Role Phone Nilda Pacheco MD PCP Encounter Details Date Type Department Care Team Description 05/17/2017 Pre-Admit [facility] Cardiology Maricarmen Shah RN Orders Only [address] [place] [address] Social History Tobacco Use Types Packs/Day Years Used Date Never Smoker Smokeless Tobacco: Never Used Alcohol Use Drinks/Week oz/Week Comments Yes rarely Sex Assigned at Date Recorded Not on file as of this encounter Plan of Treatment Date Type Specialty Care Team Description 06/14/2017 Surgery Cardiology John Don MD INTRACARDIAC CATHETER [address] ABLATION WITH [address] [place] [address] ELECTROPHYSIOLOGIC [phone] EVALUATION - TYPICAL FLUTTER 06/14/2017 Procedure Pass Cardiology 06/14/2017 [facility] Cardiology John Don MD Encounter [address] [place] [address] [phone] as of this encounter Visit Diagnoses Not on filein this encounter
--- OUTSIDE RECORDS SUMMARY | 2017-05-22 09:52 | XMS REPORT | Encounter Summary ---
Author Author [facility] Organization [facility] Address Unknown Phone Unavailable Care Team Providers Care Oil Prospecting Observer Name Role Phone PCP Unavailable Reason for Visit * Reason Comments Records Request Kortney Adair MD| Via [facility] () [phone] or [phone] Encounter Details Date Type Department Care Team Description 04/15/2017 Documentation [facility] Cardiology Edgar Hoyt Records Request (Kortney [address] Mahesh Adair MD| Via [address] () [place] [address] or [phone] ) Social History Tobacco Use Types Packs/Day Years Used Date Never Assessed Sex Assigned at Date Recorded Not on file as of this encounter Progress Notes * Edgar Hoyt - 04/15/2017 10:06 AM INTERNATIONAL BANKER Request for the following medical records for [...] cardiac information / testing. Please Fax to: [phone] Thank you, Edgar Hoyt [facility] PHARMACIST PER DIEM 1 in this encounter Plan of Treatment Date Type Specialty Care Team Description 06/14/2017 Surgery Cardiology John Don MD INTRACARDIAC CATHETER [address]BLATION WITH [address] [place] [address] ELECTROPHYSIOLOGIC [phone] EVALUATION - TYPICAL FLUTTER 06/14/2017 Procedure Pass Cardiology 06/14/2017 [facility] Cardiology John Don MD Encounter [address] [facility] [address] [place] [address] [phone] as of this encounter Visit Diagnoses Not on filein this encounter"
--- OUTSIDE RECORDS SUMMARY | 2017-05-22 09:53 | XMS REPORT | Continuity of Care Document ---
Author Author [facility] Organization [facility] Address Unknown Phone Unavailable Allergies Active Description Code Type Severity Reaction Onset Reported/Identified Relationship to Patient Clinical Status Yes Penicillins [id number] Drug Allergy Unknown N/A 02/23/2008 Medications There [...] OTHER EXTERNAL CAUSE STATUS 05/11/2016 GLORIA PEOPLES CUSHION MAKER Ot R51 HEADACHE 05/11/2016 GLORIA PEOPLES APRN [...] OTHER EXTERNAL CAUSE STATUS 05/14/2016 GLORIA PEOPLES CUSHION MAKER Ot R51 HEADACHE 05/14/2016 GLORIA PEOPLES APRN Ot S09.90XA UNSPECIFIED INJURY OF HEAD, INITIAL ENCO 05/14/2016 GLORIA PEOPLES APRN Ot X58.XXXA EXPOSURE TO OTHER SPECIFIED FACTORS, INI 05/14/2016 GLORIA PEOPLES APRN Ot Y99.8 OTHER EXTERNAL CAUSE STATUS 05/14/2016 GLORIA PEOPLES APRN Ot R51 HEADACHE 05/14/2016 GLORIA PEOPLES APRN Ot S09.90XA UNSPECIFIED INJURY OF HEAD, INITIAL ENCO 05/14/2016 SHELTON, GLORIA M CUSHION MAKER Ot X58.XXXA EXPOSURE TO OTHER SPECIFIED FACTORS, INI 05/14/2016 GLORIA PEOPLES CUSHION MAKER Ot Y99.8 OTHER EXTERNAL CAUSE STATUS 05/30/2016 GLORIA PEOPLES CUSHION MAKER Ot R51 HEADACHE 05/30/2016 GLORIA PEOPLES CUSHION MAKER Ot S09.90XA UNSPECIFIED INJURY OF HEAD, INITIAL ENCO 05/30/2016 GLORIA PEOPLES CUSHION MAKER Ot X58.XXXA EXPOSURE TO OTHER SPECIFIED FACTORS, [...] OTHER EXTERNAL CAUSE STATUS 02/17/2017 MISSY YAP LIEUTENANT FIRE FIGHTER Ot M94.8X8 OTHER SPECIFIED DISORDERS OF CARTILAGE, 02/17/2017 MISSY YAP LIEUTENANT FIRE FIGHTER Ot S89.92XA UNSPECIFIED INJURY OF LEFT LOWER LEG, IN 02/17/2017 MISSY YAP LIEUTENANT FIRE FIGHTER Ot X50.0XXA OVEREXERTION FROM STRENUOUS MOVEMENT OR 02/17/2017 MISSY YAP LIEUTENANT FIRE FIGHTER Ot Y93.41 ACTIVITY, DANCING 02/20/2017 MISSY YAP LIEUTENANT FIRE FIGHTER Ot M25.562 PAIN IN LEFT KNEE 02/20/2017 MISSY YAP LIEUTENANT FIRE FIGHTER Ot X50.1XXA OVEREXERTION FROM PROLONGED STATIC OR AW 02/20/2017 MISSY YAP LIEUTENANT FIRE FIGHTER Ot Y93.41 ACTIVITY, DANCING 03/05/2017 REECE WELSH DO W Ot M25.562 PAIN IN LEFT KNEE 03/05/2017 GLORIA PEOPLES CUSHION MAKER Ot N28.1 CYST OF KIDNEY, ACQUIRED 03/05/2017 GLORIA PEOPLES APRN Ot R51 HEADACHE 03/05/2017 SHELTON, GLORIA M CUSHION MAKER Ot S09.90XA UNSPECIFIED INJURY OF HEAD, INITIAL ENCO 03/05/2017 GLORIA PEOPLES APRN Ot X58.XXXA EXPOSURE TO OTHER SPECIFIED FACTORS, INI 03/05/2017 GLORIA PEOPLES CUSHION MAKER Ot Y99.8 OTHER EXTERNAL CAUSE STATUS 03/05/2017 MISSY YAP Ot M25.562 PAIN IN LEFT KNEE 03/05/2017 MISSY YAP LIEUTENANT FIRE FIGHTER Ot X50.1XXA OVEREXERTION FROM PROLONGED STATIC OR AW 03/05/2017 MISSY YAP LIEUTENANT FIRE FIGHTER Ot Y93.41 ACTIVITY, DANCING 03/05/2017 MISSY YAP LIEUTENANT FIRE FIGHTER Ot M94.8X8 OTHER SPECIFIED DISORDERS OF CARTILAGE, 03/05/2017 MISSY YAPP Ot S89.92XA UNSPECIFIED INJURY OF LEFT LOWER LEG, IN 03/05/2017 MISSY YAP LIEUTENANT FIRE FIGHTER Ot X50.0XXA OVEREXERTION FROM STRENUOUS MOVEMENT OR 03/05/2017 MISSY YAP LIEUTENANT FIRE FIGHTER Ot Y93.41 ACTIVITY, DANCING 03/05/2017 BLAISE REECE GOINS Ot M25.562 PAIN IN LEFT KNEE 03/05/2017 GLORIA PEOPLES CUSHION MAKER Ot N28.1 CYST OF KIDNEY, ACQUIRED 03/05/2017 GLORIA PEOPLES CUSHION MAKER Ot R51 HEADACHE 03/05/2017 GLORIA PEOPLES CUSHION MAKER Ot S09.90XA UNSPECIFIED INJURY OF HEAD, INITIAL ENCO 03/05/2017 GLORIA PEOPLES APRN Ot X58.XXXA EXPOSURE TO OTHER SPECIFIED FACTORS, INI 03/05/2017 GLORIA PEOPLES CUSHION MAKER Ot Y99.8 OTHER EXTERNAL CAUSE STATUS 03/05/2017 MISSY YAP LIEUTENANT FIRE FIGHTER Ot M25.562 PAIN IN LEFT KNEE 03/05/2017 MISSY YAP Ot X50.1XXA OVEREXERTION FROM PROLONGED STATIC OR AW 03/05/2017 MISSY YAP LIEUTENANT FIRE FIGHTER Ot Y93.41 ACTIVITY, DANCING 03/05/2017 MISSY YAPP Ot M94.8X8 OTHER SPECIFIED DISORDERS OF CARTILAGE, 03/05/2017 MISSY YAP LIEUTENANT FIRE FIGHTER Ot S89.92XA UNSPECIFIED INJURY OF LEFT LOWER LEG, IN 03/05/2017 MISSY YAP LIEUTENANT FIRE FIGHTER Ot X50.0XXA OVEREXERTION FROM STRENUOUS MOVEMENT OR 03/05/2017 MISSY YAP LIEUTENANT FIRE FIGHTER Ot Y93.41 ACTIVITY, DANCING 03/05/2017 REECE WELSH DO Ot M25.562 PAIN IN LEFT KNEE 03/05/2017 GLORIA PEOPLES CUSHION MAKER Ot N28.1 CYST OF KIDNEY, ACQUIRED 03/05/2017 GLORIA PEOPLES CUSHION MAKER Ot R51 HEADACHE 03/05/2017 GLORIA PEOPLES CUSHION MAKER Ot S09.90XA UNSPECIFIED INJURY OF HEAD, INITIAL ENCO 03/05/2017 GLORIA PEOPLES CUSHION MAKER Ot X58.XXXA EXPOSURE TO OTHER SPECIFIED FACTORS, INI 03/05/2017 GLORIA PEOPLES CUSHION MAKER Ot Y99.8 OTHER EXTERNAL CAUSE STATUS 03/05/2017 MISSY YAPP Ot M25.562 PAIN IN LEFT KNEE 03/05/2017 MISSY YAP Ot X50.1XXA OVEREXERTION FROM PROLONGED STATIC OR AW 03/05/2017 MISSY YAP LIEUTENANT FIRE FIGHTER Ot Y93.41 ACTIVITY, DANCING 03/05/2017 MISSY YAP LIEUTENANT FIRE FIGHTER Ot M94.8X8 OTHER SPECIFIED DISORDERS OF CARTILAGE, 03/05/2017 MISSY YAP LIEUTENANT FIRE FIGHTER Ot S89.92XA UNSPECIFIED INJURY OF LEFT LOWER LEG, IN 03/05/2017 MISSY YAP LIEUTENANT FIRE FIGHTER Ot X50.0XXA OVEREXERTION FROM STRENUOUS MOVEMENT OR 03/05/2017 MISSY YAP LIEUTENANT FIRE FIGHTER Ot Y93.41 ACTIVITY, DANCING 03/06/2017 WILBERTO WARREN [...] I48.92 UNSPECIFIED ATRIAL FLUTTER 03/13/2017 YAPMISSY Richa LIEUTENANT FIRE FIGHTER Ot M94.8X8 OTHER SPECIFIED DISORDERS OF CARTILAGE, 03/13/2017 MISSY YAP LIEUTENANT FIRE FIGHTER Ot S89.92XA UNSPECIFIED INJURY OF LEFT LOWER LEG, IN 03/13/2017 MISSY YAP Ot X50.0XXA OVEREXERTION FROM STRENUOUS MOVEMENT OR 03/13/2017 YAPMISSY Richa LIEUTENANT FIRE FIGHTER Ot Y93.41 ACTIVITY, DANCING 04/23/2017 ROBINA PEOPLES [...] 04:15 THYROID STIMULATING HORMONE 5.18 u[iU]/mL 0.35-4.94 Complete blood count (CBC) with automated white blood cell (WBC) differential - 05/22/17 08:35 Blood leukocytes automated count (number/volume) 7.9 10*3/uL 4.3-11.0 Blood erythrocytes automated count (number/volume) 5.48 10*6/uL 4.35-5.85 Venous blood hemoglobin measurement (mass/volume) 17.9 g/dL 11.5-16.0 Blood hematocrit (volume fraction) 50 % 35-52 Automated erythrocyte mean corpuscular volume 91 [foz_us] 80-99 Automated erythrocyte mean corpuscular hemoglobin (mass per erythrocyte) 33 pg 25-34 Automated erythrocyte mean corpuscular hemoglobin concentration measurement ( mass/volume) 36 g/dL 32-36 Automated erythrocyte distribution width ratio 12.2 % 10.0-14.5 Automated blood platelet count (count/volume) 320 10*3/uL 130-400 Automated blood platelet mean volume measurement 10.3 [foz_us] 7.4-10.4 Automated blood neutrophils/100 leukocytes 68 % 42-75 Automated blood lymphocytes/100 leukocytes 24 % 12-44 Blood monocytes/100 leukocytes 6 % 0-12 Automated blood eosinophils/100 leukocytes 2 % 0-10 Automated blood basophils/100 leukocytes 0 % 0-10 Blood neutrophils automated count (number/volume) 5.3 10*3 1.8-7.8 Blood lymphocytes automated count (number/volume) 1.9 10*3 1.0-4.0 Blood monocytes automated count (number/volume) 0.5 10*3 0.0-1.0 Automated eosinophil count 0.2 10*3/uL 0.0-0.3 Automated blood basophil count (count/volume) 0.0 10*3/uL 0.0-0.1 Comprehensive metabolic panel - 05/22/17 08:35 Serum or plasma sodium measurement (moles/volume) 140 mmol/L 135-145 Serum or plasma potassium measurement (moles/volume) 4.2 mmol/L 3.6-5.0 Serum or plasma chloride measurement (moles/volume) 109 mmol/L 98-107 Carbon dioxide 21 mmol/L 21-32 Serum or plasma anion gap determination (moles/volume) 10 mmol/L 5-14 Serum or plasma urea nitrogen measurement (mass/volume) 14 mg/dL 7-18 Serum or plasma creatinine measurement (mass/volume) 0.79 mg/dL 0.60-1.30 Serum or plasma urea nitrogen/creatinine mass ratio 18 NRG Serum or plasma creatinine measurement with calculation of estimated glomerular filtration rate > NRG Serum or plasma glucose measurement (mass/volume) 98 mg/dL 70-105 Serum or plasma calcium measurement (mass/volume) 9.4 mg/dL 8.5-10.1 Serum or plasma total bilirubin measurement (mass/volume) 0.6 mg/dL 0.1-1.0 Serum or plasma alkaline phosphatase measurement (enzymatic activity/volume) 57 U/L 40-136 Serum or plasma aspartate aminotransferase measurement (enzymatic activity/ volume) 18 U/L 5-34 Serum or plasma alanine aminotransferase measurement (enzymatic activity/volume ) 20 U/L 0-55 Serum or plasma protein measurement (mass/volume) 7.3 g/dL 6.4-8.2 Serum or plasma albumin measurement (mass/volume) 4.6 g/dL 3.2-4.5 Magnesium - 05/22/17 08:35 Magnesium 2.1 mg/dL 1.8-2.4 PT panel in platelet poor plasma by coagulation assay - 05/22/17 08:35 Prothrombin time (PT) in platelet poor plasma by coagulation assay 17.2 s 12.2-14.7 INR in platelet poor plasma or blood by coagulation assay 1.4 0.8-1.4 Activated partial thromboplastin time (aPTT) in platelet poor plasma bycoagulation assay - 05/22/17 08:35 Activated partial thromboplastin time (aPTT) in platelet poor plasma bycoagulation assay 37 s 24-35 Serum or plasma troponin i.cardiac measurement (mass/volume) - 05/22/17 08:35 Serum or plasma troponin i.cardiac measurement (mass/volume) < ng/ mL <0.30 Myoglobin, serum - 05/22/17 08:35 Myoglobin, serum 22.7 ng/mL 10.0-92.0 Serum or plasma thyrotropin measurement by detection limit <=0.05 miu/l (units/ volume) - 05/22/17 08:35 Serum or plasma thyrotropin measurement by detection limit <=0.05 miu/l (units/ volume) 4.31 u[iU]/mL 0.35-4.94 Encounters ACCT No. Visit Date/Time Discharge Status Pt. Type Provider Facility Loc./Unit Complaint [id number] 04/22/2017 20:00:00 04/23/2017 05:55:00 DIS Outpatient ROBINA PEOPLES APRN [facility] SLEEP G47.33 [id number] 03/12/2017 10:45:00 03/12/2017 23:59:59 CLS Outpatient STACIE BRIDGES [facility] CARD I48.92 [id number] 03/05/2017 13:40:00 03/06/2017 10:27:00 DIS Inpatient WILBERTO WARREN FACC, ALI FACP CCDS [facility] ICU A-FLUTTER WITH RVR,ELEVATED TROPONIN [id number] 02/15/2017 18:08:00 02/15/2017 23:59:59 CLS Outpatient MISSY YAP [facility] RAD KNEE PAIN [id number] 02/08/2017 14:26:00 02/08/2017 23:59:59 CLS Outpatient MISSY YAP [facility] RAD L KNEE PAIN [id number] 05/08/2016 16:03:00 05/08/2016 23:59:59 CLS Outpatient GLORIA PEOPLES APRN [facility] RAD HEAD TRAUMA [id number] 04/08/2015 10:45:00 04/08/2015 23:59:59 CLS Outpatient GLORIA PEOPLES APRN [facility] RAD ABD PAIN [id number] 12/08/2014 14:31:00 12/08/2014 23:59:59 CLS Outpatient REECE WELSH DO [facility] RAD LT KNEE PAIN [id number] 10/10/2014 16:40:00 10/10/2014 17:04:00 DIS Emergency NITESH WARREN, BRANDIE Romo [facility] ER RIGHT WRIST SORENESS [id number] 05/22/2017 08:48:00 Document Registration [id number] 05/06/2012 23:41:00 Document Registration [id number] 09/04/2011 09:30:00 Document Registration [id number] 08/24/2011 11:42:00 Document Registration
--- OUTSIDE RECORDS SUMMARY | 2017-05-22 09:53 | XMS REPORT | Encounter Summary ---
Author Author [facility] Organization [facility] Address Unknown Phone Unavailable Care Team Providers Care Technology Methodology Consultant Name Role Phone PCP Unavailable Reason for Visit * Reason Comments Records Request Nilda Pacheco MD/ [facility] (F) [phone] Encounter Details Date Type Department Care Team Description 04/15/2017 Documentation [facility] Cardiology Edgar Hoyt Records Request (Nilda [address] Mahesh Pacheco MD/ [facility] [address] Clinic (F) [phone]) [place], [place] [id number] Social History Tobacco Use Types Packs/Day Years Used Date Never Assessed Sex Assigned at Date Recorded Not on file as of this encounter Progress Notes * Edgar Hoyt - 04/15/2017 10:02 AM LEHR CUTTER Request for the following medical records for [...] cardiac information / testing. Please Fax to: [phone] Thank you, Edgar Hoyt [facility] CUTTING AND SPLICING SUPERVISOR 1 in this encounter Plan of Treatment Date Type Specialty Care Team Description 06/14/2017 Surgery Cardiology John Don MD INTRACARDIAC CATHETER [address] ABLATION WITH [address] [place] [address] ELECTROPHYSIOLOGIC [phone] EVALUATION - TYPICAL FLUTTER 06/14/2017 Procedure Pass Cardiology 06/14/2017 [facility] Cardiology John Don MD Encounter [address] [facility] [address] [place], [place] [id number] as of this encounter Visit Diagnoses Not on filein this encounter
[2017-05-22] MEDS ORDERED: FLEC50TA PO (09:57)
[2017-05-22] MEDS ORDERED: APIX5TAB PO (10:43)
[2017-05-22] MEDS ORDERED: CATHETER FLUSH 10 ML SYR IV PRN (11:00)
[2017-05-22] MEDS: NS IV 1000 ML 1,000 ML IV SCH ×2 (11:09→20:59)
[2017-05-22] MEDS: VERAPAMIL 5 MG/2 ML (CALAN) VIAL IV SCH ×3 (11:25→16:48)
--- NOTE | 2017-05-22 11:58 | History & Physicial-Cardiolgy ---
HPI-Cardiology Cardiology Consultation: Date of Consultation 05/22/17 Date of Admission Attending Physician Richa Mak MD Admitting Physician Nilda Pacheco MD Consulting Physician Richa MAK MD HPI: Time Seen by Provider: 09:30 Chief Complaint: Tachycardia This is a 32-year-old female patient of Dr. Adair. She follows Dr. Adair for palpitations and atrial flutter. He presented with tachycardia since last night. She is on flecainide and Cardizem. She took an extra dose of flecainide but her heart rate did not respond. She continued to have palpitations on my interview. She denies having any chest pain or shortness of breath. Review of Systems-Cardiology Review of Systems Constitutional: No As described under HPI, No no symptoms reported, No chills, No fever, No lightheadedness, No malaise, No tiredness, No weight loss, No weight gain, No other Eyes: No As described under HPI, No no symptoms reported, No blindness, No blurred vision, No contact lenses, No drainage, No decreased acuity, No foreign body sensation, No glasses, No inflammation, No pain, No photophobia, No previous injury, No shadows, No tunnel vision, No other, No vision change Ears/Nose/Throat: No As described under HPI, No no symptoms reported, No chronic hearing loss, No epistaxis, No ear discharge, No ear pain, No loose teeth, No mouth pain, No mouth swelling, No nasal drainage, No nose pain, No recent hearing loss, No throat pain, No throat swelling, No ulcerations, No other Respiratory: No no symptoms reported, No As described under HPI, No cough, No orthopnea, No shortness of breath, No SOB with excertion, No SOB at rest, No stridor, No wheezing, No other Cardiovascular: No no symptoms reported, No As described under HPI, No chest pain, No edema, No irregular heart rate, No lightheadedness, palpitations, No syncope, No other Gastrointestinal: No no symptoms reported, No As described under HPI, No abdomen distended, No abdominal pain, No blood streaked bowels, No constipation , No diarrhea, No difficulty swallowing, No nausea, No poor appetite, No poor fluid intake, No rectal bleeding, No vomiting, No other, No nausea/vomiting/ diarrhea, No stool coloration changes Genitourinary: No no symptoms reported, No As described under HPI, No burning, No dysuria, No discharge, No frequency, No flank pain, No hematuria, No incontinence, No pain, No urgency, No other, No urine frequency changes, No urine coloration changes Musculoskeletal: No no symptoms reported, No As describe under HPI, No back pain, No gout, No joint pain, No joint swelling, No muscle pain, No muscle stiffness, No neck pain, No other Skin: No no symptoms reported, No As described under HPI, No change in color, No change in hair/nails, No dryness, No lesions, No lumps, No rash, No other, No skin related problems, No ulcerations, No rash on exposed areas, No ulcerations on exposed areas Psychiatric/Neurological: No no symptoms reported, No As described under HPI, No anxiety, No depression, No emotional problems, No headache, No numbness, No pre-existing deficit, No seizure, No tingling, No tremors, No weakness, No other , No focal weakness, No syncope BFX-Pwqcot-Kwmfle Hx Patient Social History Alcohol Use: Denies Use Recreational Drug Use: No Smoking Status: Never a Smoker 2nd Hand Smoke Exposure: No Recent Foreign Travel: No Recent Infectious Disease Expo: No Hospitalization with Isolation: Denies Past Medical History PMH As described under Assessment. Family Medical History Family Medical History: She does not report fam h/o of early CAD or SCD Family History: Hypertension 19 FATHER 19 MOTHER Allergies and Home Medications Allergies Coded Allergies: Penicillins (Verified Allergy, Unknown, 02/23/08) Home Medications Apixaban 5 Mg Tablet, 5 MG PO BID, (Reported) Diltiazem HCl 240 Mg Cap.er.24h, 240 MG PO DAILY, (Reported) Flecainide Acetate 50 Mg Tablet, 50 MG PO BID, (Reported) Patient Home Medication List Home Medication List Reviewed: Yes Physical Exam-Cardiology Physical Exam Vital Signs/I&O Vital Sign - Last 12Hours 05/22/17 05/22/17 05/22/17 05/22/17 08:22 10:32 10:45 10:45 Temp 97.9 98.4 98.0 Pulse 142 127 129 Resp 18 18 15 B/P (MAP) 131/111 (118) 128/115 104/81 (89) Pulse Ox 100 98 100 100 O2 Delivery Room Air Room Air Room Air Room Air 05/22/17 05/22/17 05/22/17 05/22/17 10:55 12:15 12:15 13:00 Temp 98.2 Pulse 133 131 Pulse Ox 100 O2 Delivery Room Air Capillary Refill : Less Than 3 Seconds Constitutional: No appears stated age, AAO x 3, No apparent distress, No PERRL , No well-developed, No well-nourished, No other HEENT: No PERRL, No normal ENT inspection, No TMs normal, No pharynx normal, No scleral icterus (R), No scleral icterus (L), No pale conjunctivae (R), No pale conjunctivae (L), No photophobia, No TM abnormal (R), No TM abnormal (L), No pharyngeal erythema, No tonsillar exudate, No other, No discharge, No EOMI, No hearing is well preserved, No hard of hearing, No oral hygience is good, No ulceration, No xanthelasmas are seen Neck: No non-tender, No full range of motion, No supple, No normal inspection, No carotid bruit, No limited range of motion, No lymphadenopathy (R), No lymphadenopathy (L), No tender lateral, No tender midline, No thyromegaly, No other, No carotid pulses are 2 + bilaterally, No with good upstrokes Respiratory: No accessory muscle use, No respiratory distress, No chest tender , No chest expansion is symmetric, chest is bilaterally symmetric, No lungs clear to percussion, lungs clear to auscultation, No crackles, No rhonchi, No rales, No stridor, No wheezing, No pleural rub, No other Cardiovascular: regular rate-rhythm, No irregularly irregular, No extra beats, No parasternal heave is noted, No JVD, No edema, No bradycardia, tachycardia, No point of maximal impulse, No cardiac thrills are palpable, S1 and S2, No gallop/S3, No gallop/S4, No diastolic murmur, No systolic murmur, No friction rub, No click, No other Gastrointestinal: No tender, No soft, No round, No distended, No pulsatile mass , No organomegaly, No guarding, No rebound, No tenderness, No hernia, No mass, No audible bowel sounds, No abnormal bowel sounds, No abdominal bruits, No spleenomegaly, No other Rectal: deferred Extremities: No normal range of motion, No non-tender, No normal inspection, No pedal edema, No calf tenderness, No normal capillary refill, No pelvis stable , No calf tenderness, No inflammation, No pedal edema, No slow capillary refill , No swelling, No other, No abrasion, No clubbing, No cyanosis, No ecchymosis, No laceration, No no lower extremity edema bilateral, No significant edema, No tenderness, No wound Neurologic/Psychiatric: No supervisor reactor fueling II-XII nml as tested, No no motor/sensory deficits, alert, normal mood/affect, oriented x 3, No abnormal cerebellar tests , No abnormal supervisor reactor fueling II-XII, No abnormal gait, No aphasia, No EOM palsy, No facial droop, No motor weakness, No sensory deficit, No depressed affect, No disoriented x 3, No other, No grossly intact, No power is 5/5 both on sides Skin: No normal color, No warm/dry, No cyanosis, No cool, No diaphoresis, No damp, No ecchymosis, No jaundice, No mottled, No pallor, No rash, No tattoos/ piercings, No ulcerations, No rash on exposed areas, No ulcerations on exposed areas, No other Data Review Labs Laboratory Tests 05/22/17 08:35: White Blood Count 7.9, Red Blood Count 5.48, Hemoglobin 17.9H, Hematocrit 50, Mean Corpuscular Volume 91, Mean Corpuscular Hemoglobin 33, Mean Corpuscular Hemoglobin Concent 36, Red Cell Distribution Width 12.2, Platelet Count 320, Mean Platelet Volume 10.3, Neutrophils (%) (Auto) 68, Lymphocytes (%) (Auto) 24 , Monocytes (%) (Auto) 6, Eosinophils (%) (Auto) 2, Basophils (%) (Auto) 0, Neutrophils # (Auto) 5.3, Lymphocytes # (Auto) 1.9, Monocytes # (Auto) 0.5, Eosinophils # (Auto) 0.2, Basophils # (Auto) 0.0, Prothrombin Time 17.2H, INR Comment 1.4, Activated Partial Thromboplast Time 37H, Sodium Level 140, Potassium Level 4.2, Chloride Level 109H, Carbon Dioxide Level 21, Anion Gap 10 , Blood Urea Nitrogen 14, Creatinine 0.79, Estimat Glomerular Filtration Rate > 60, BUN/Creatinine Ratio 18, Glucose Level 98, Calcium Level 9.4, Magnesium Level 2.1, Total Bilirubin 0.6, Aspartate Amino Transf (AST/SGOT) 18, Alanine Aminotransferase (ALT/SGPT) 20, Alkaline Phosphatase 57, Myoglobin 22.7, Troponin I < 0.30, Total Protein 7.3, Albumin 4.6H, TSH [place] Testing 4.31, Serum Test, Qualitative NEGATIVE ECG Impression ECG Comment Atrial flutter with rapid ventricular rate A/P-Cardiology Assessment/Admission Diagnosis Palpitations, secondary to paroxysmal atrial flutter. Currently in rapid ventricular rate. Mild hypothyroidism, Obesity Plan Atrial flutter with rapid ventricular rate: Continue flecainide, Cardizem, Eliquis. Will give IV verapamil. If patient does not convert overnight we will schedule for cardioversion in the morning. Ablation is scheduled in June at [facility] with Dr. Hogan. Richa MAK MD May 22, 2017 11:58
[2017-05-22] MEDS ORDERED: PATIENT MAY USE OWN MEDS, ALL MC SCH (14:30)
[2017-05-22] MEDS: FLECAINIDE 50MG TABLET PO SCH (20:59)
[2017-05-22] MEDS: APIXABAN 5 MG (ELIQUIS) TABLET PO SCH (21:00)
[2017-05-23] VITALS: BP 107/58
[2017-05-23 04:00] VITALS: BP 104/68
[2017-05-23] MEDS: NS IV 1000 ML 1,000 ML IV SCH (06:57)
[2017-05-23 08:45] VITALS: BP 111/81
[2017-05-23] MEDS: APIXABAN 5 MG (ELIQUIS) TABLET PO SCH (08:46)
[2017-05-23] MEDS: FLECAINIDE 50MG TABLET PO SCH (08:46)
[2017-05-23] MEDS ORDERED: DILTIAZEM 240 MG (CARDIZEM CD) CAP PO SCH (09:00)
[2017-05-23 10:15] VITALS: BP 111/81
--- NOTE | 2017-05-23 16:29 | Cardiology Discharge Summary ---
Diagnosis/Chief Complaint Date of Admission May 22, 2017 at 10:35 Date of Discharge May 23, 2017 at 09:45 Admission Diagnosis Atrial flutter with rapid ventricular rate Final/Discharge Diagnosis Atrial flutter with rapid ventricular rate Chief Complaint/HPI Chief Complaint/HPI This is a 32-year-old female patient of Dr. Adair. She follows Dr. Adair for palpitations and atrial flutter. He presented with tachycardia since last night. She is on flecainide and Cardizem. She took an extra dose of flecainide but her heart rate did not respond. She continued to have palpitations on my interview. She denies having any chest pain or shortness of breath. Discharge Summary Procedures None. Discharge Physical Examination Stable Cardio respiratory examination. Hospital Course Patient converted to sinus rhythm overnight on IV verapamil. Stable. Discussion & Recommendations Discussion Discussed at length with the patient and significant other. She'll be discharged on flecainide, Cardizem and oral anticoagulation. Follow-up with Dr. Adair as an outpatient. Follow-up for ablation with Dr. Hogan at . Follow up appt.: Dr. Adair Dicharge Diet: Regular Diet Home Medications Reviewed patient Home Medication Reconciliation performed by pharmacy medication reconciliations infectious disease technician and/or nursing. Patients Allergies have been reviewed. Discharge Home Medications: Reviewed and agree with Discharge Medication list on patient's Discharge Instruction sheet Condition at discharge Stable. Instructions to patient/family Follow-up with Dr. Adair. Diagnosis/Problems Diagnosis/Problems (1) Atrial flutter with rapid ventricular response Status: Resolved Clinical Quality Measures DVT/VTE Risk/Contraindication: RFS Level Per Nursing on Admit: 0=No Risk/No VTE PPX Richa FAULKNER MD May 23, 2017 16:29
== END 2017-05-23 09:45 | disposition home or self-care (01) ==
LOC: EDUNIT# 08:20 → ER 08:22 → UNDOADMOB 09:33 → ICU 09:33 → UNDODISOB 05-23 10:15
PROVIDERS: ADMIT Internal Medicine Interventional Cardiology; ATTEND Internal Medicine Interventional Cardiology
DX: I48.92 Unspecified atrial flutter (principal); Z79.899 Other long term (current) drug therapy; Z79.01 Long term (current) use of anticoagulants
CPT/HCPCS: 36415; 71045; 80053; 83735; 83874; 84443; 84484; 84703; 85025; 85610; 85730; 93005; 93041; 96360

== ENCOUNTER 2018-08-10 21:55 | Observation (INO) | payer BC, OTHER ==
[~2018-08-10] VITALS: Ht 180.3 cm; Wt 91.8 kg
[2018-08-10 00:06] VITALS: BP 118/72
[~2018-08-10 21:55] MED LIST changes: +DILT240C53 PO; -DILT240C63 PO; +DILT240C97 PO; +FLEC50TA PO
[2018-08-10] MEDS ORDERED: ADENOSINE 6 MG/2 ML (ADENOCARD) VIAL IV ONE ×5 (21:57→23:06)
[2018-08-10] MEDS ORDERED: ASPIRIN 81 MG CHEW (CHILDREN'S ASA) PO ONE (22:00)
[2018-08-10] MEDS ORDERED: DILTIAZEM 125 MG/25 ML IV (CARDIZEM) IV ONE ×2 (22:05→22:07)
[2018-08-10] MEDS ORDERED: NS (IVPB) 100 ML ONE (22:08)
[2018-08-10] MEDS ORDERED: DILTIAZEM 25 MG/5 ML INJ (CARDIZEM) VIAL ONE (22:17)
[2018-08-10 22:26] LABS: BASOPHILS % (AUTO) 0 % (0-10); EOSINOPHILS # (AUTO) 0.2 10^3/uL (0.0-0.3); EOSINOPHILS % (AUTO) 1 % (0-10); HEMATOCRIT 45 % (35-52); HEMOGLOBIN 16.1 G/DL (11.5-16.0); LYMPHOCYTES % (AUTO) 42 % (12-44); MEAN CORPUSCULAR HEMOGLOBIN 32 PG (25-34); MEAN CORPUSCULAR HGB CONC 36 G/DL (32-36); MEAN CORPUSCULAR VOLUME 90 FL (80-99); MEAN PLATELET VOLUME 10.2 FL (7.4-10.4); MONOCYTES % (AUTO) 8 % (0-12); NEUTROPHILS # (AUTO) 5.9 X 10^3 (1.8-7.8); NEUTROPHILS % (AUTO) 49 % (42-75); PLATELET COUNT 323 10^3/uL (130-400); RED CELL DISTRIBUTION WIDTH 12.3 % (10.0-14.5); WHITE BLOOD COUNT 12.1 10^3/uL (4.3-11.0)
[2018-08-10] MEDS ORDERED: DILTIAZEM IV FOR DRIP 125 MG in NS (IVPB) 100 ML IV SCH (22:30)
[2018-08-10] MEDS ORDERED: DILTIAZEM 25 MG/5 ML INJ (CARDIZEM) VIAL IVP ONE (22:30)
[2018-08-10 22:40] LABS: ALANINE AMINOTRANSFERASE 24 U/L (0-55); ALBUMIN 4.7 GM/DL (3.2-4.5); ALKALINE PHOSPHATASE 55 U/L (40-136); BILIRUBIN,TOTAL 0.4 MG/DL (0.1-1.0); BUN/CREATININE RATIO 24; CALCIUM 9.9 MG/DL (8.5-10.1); CARBON DIOXIDE 17 MMOL/L (21-32); CHLORIDE 102 MMOL/L (98-107); CREATININE SERUM 0.94 MG/DL (0.60-1.30); GFR ESTIMATED > 60; GLUCOSE 86 MG/DL (70-105); MAGNESIUM 2.2 MG/DL (1.8-2.4); SODIUM 138 MMOL/L (135-145); TOTAL PROTEIN 7.7 GM/DL (6.4-8.2)
--- NOTE | 2018-08-10 22:59 | ED Cardiac General ---
History of Present Illness General Chief Complaint: Cardiac/General Problems Stated Complaint: LIGHT HEADNESS, SOA, WEAK Source: patient History of Present Illness Date Seen by Provider: Aug 10, 2018 Time Seen by Provider: 21:57 Initial Comments PT ARRIVES VIA POV FROM HOME C/O RAPID HEART BEAT SINCE 2029 TONIGHT--HEART RATE IN 220'S PT HAS HISTORY OF ATRIAL FLUTTER--HAD AN ABLATION DONE AT [facility] 15 MONTHS AGO WAS ON CARDIZEM AND ELIQUIS, BUT NONE FOR THE LAST 13 1/2 MONTHS HAS NOT HAD ANY PROBLEMS UNTIL TODAY NO UNUSUAL ACTIVITY--WAS AT [facility] TODAY FOR 1 1/2 HOURS DID JUST GET BACK FROM A TRIP TO [place] 1 1/2 WEEKS AGO + SHORTNESS OF BREATH + CHEST PAIN + LIGHTHEADEDNESS NO SWEATS NO SYNCOPE NO NAUSEA/VOMITING NO SWELLING IN LEGS/ FEET OR PAIN IN CALVES DID HAVE BRIEF EPISODE OF PALPITATIONS AND SHORTNESS OF BREATH ON Saturday08/08/18--LASTED A FEW MINUTES AND WENT AWAY. LMP 1 1/2-2 WEEKS AGO. NORMAL. PCP: DR. GALLEGOS CLERK CHECKER: DR. LADD Allergies and Home Medications Allergies Coded Allergies: Penicillins (Verified Allergy, Unknown, 02/23/08) Home Medications Apixaban 5 Mg Tablet, 5 MG PO BID, (Reported) Diltiazem HCl 240 Mg Cap.er.24h, 240 MG PO DAILY, (Reported) Flecainide Acetate 50 Mg Tablet, 50 MG PO BID, (Reported) Patient Home Medication List Home Medication List Reviewed: Yes Review of Systems Review of Systems Constitutional: see HPI; No diaphoresis; dizziness Respiratory: See HPI, Shortness of Air Cardiovascular: See HPI, Chest Pain, Irregular Heart Rate, Lightheadedness, Palpitations; Denies Syncope Gastrointestinal: No Symptoms Reported Genitourinary: No Symptoms Reported Musculoskeletal: no symptoms reported Skin: no symptoms reported Psychiatric/Neurological: No Symptoms Reported Endocrine: No Symptoms Reported Hematologic/Lymphatic: No Symptoms Reported Past Gsnpnik-Rdzxai-Rkenrv Hx Patient Social History Alcohol Use: Denies Use Recreational Drug Use: No Smoking Status: Never a Smoker 2nd Hand Smoke Exposure: No Recent Foreign Travel: No Contact w/Someone Who Travel: No Recent Hopitalizations: No Immunizations Up To Date Date of Influenza Vaccine: Mar 27, 2017 Seasonal Allergies Seasonal Allergies: Yes Past Medical History Surgeries: Yes ( X 2; CARDIAC ABLATION; WISDOM TEETH) Cardiac, Section Respiratory: No Cardiac: Yes (paroxysmal atrial flutter with RVR) Irregular Heartbeat Neurological: Yes (concussion in 2017) Concussion Reproductive Disorders: No Sexually Transmitted Disease: No Genitourinary: No Gastrointestinal: No Musculoskeletal: No Endocrine: No HEENT: Yes (glasses) Cancer: No Psychosocial: No Integumentary: No Blood Disorders: No Adverse Reaction/Blood Tranf: No Family Medical History Hypertension 19 FATHER 19 MOTHER Physical Exam Vital Signs Vital Signs - First Documented Capillary Refill : Height, Weight, BMI Height: 5'7.00" Weight: 190lbs. 0.0oz. 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 Norm as Tested Skin: Normal Color, Warm/Dry Progress/Results/Core Measures Results/Orders Lab Results Laboratory Tests Test 08/10/18 22:02 Range/Units White Blood Count 12.1 H 4.3-11.0 10^3/uL Red Blood Count 4.98 4.35-5.85 10^6/uL Hemoglobin 16.1 H 11.5-16.0 G/DL Hematocrit 45 35-52 % Mean Corpuscular Volume 90 80-99 FL Mean Corpuscular Hemoglobin 32 25-34 PG Mean Corpuscular Hemoglobin Concent 36 32-36 G/DL Red Cell Distribution Width 12.3 10.0-14.5 % Platelet Count 323 130-400 10^3/uL Mean Platelet Volume 10.2 7.4-10.4 FL Neutrophils (%) (Auto) 49 42-75 % Lymphocytes (%) (Auto) 42 12-44 % Monocytes (%) (Auto) 8 0-12 % Eosinophils (%) (Auto) 1 0-10 % Basophils (%) (Auto) 0 0-10 % Neutrophils # (Auto) 5.9 1.8-7.8 X 10^3 Lymphocytes # (Auto) 5.0 H 1.0-4.0 X 10^3 Monocytes # (Auto) 1.0 0.0-1.0 X 10^3 Eosinophils # (Auto) 0.2 0.0-0.3 10^3/uL Basophils # (Auto) 0.0 0.0-0.1 10^3/uL Prothrombin Time 14.0 12.2-14.7 SEC INR Comment 1.0 0.8-1.4 Activated Partial Thromboplast Time 33 24-35 SEC Sodium Level 138 135-145 MMOL/L Potassium Level 4.0 3.6-5.0 MMOL/L Chloride Level 102 98-107 MMOL/L Carbon Dioxide Level 17 L 21-32 MMOL/L Anion Gap 19 H 5-14 MMOL/L Blood Urea Nitrogen 23 H 7-18 MG/DL Creatinine 0.94 0.60-1.30 MG/DL Estimat Glomerular Filtration Rate > 60 BUN/Creatinine Ratio 24 Glucose Level 86 70-105 MG/DL Calcium Level 9.9 8.5-10.1 MG/DL Corrected Calcium 8.5-10.1 MG/DL Magnesium Level 2.2 1.8-2.4 MG/DL Total Bilirubin 0.4 0.1-1.0 MG/DL Aspartate Amino Transf (AST/SGOT) 24 5-34 U/L Alanine Aminotransferase (ALT/SGPT) 24 0-55 U/L Alkaline Phosphatase 55 40-136 U/L Myoglobin 275.9 H 10.0-92.0 NG/ML Troponin I < 0.028 <0.028 NG/ML B-Type Natriuretic Peptide 10.0 <100.0 PG/ML Total Protein 7.7 6.4-8.2 GM/DL Albumin 4.7 H 3.2-4.5 GM/DL Free Thyroxine 0.90 0.70-1.48 NG/DL TSH [place] Testing 12.81 H 0.35-4.94 UIU/ML Serum Test, Qualitative NEGATIVE NEGATIVE My Orders Orders - MARIEL CLINTON DO Adenosine Injection (Adenocard Injection (08/10/18 21:57) Diltiazem Iv For Drip (Cardizem Iv For D (08/10/18 22:05) Diltiazem Iv For Drip (Cardizem Iv For D (08/10/18 22:07) Ns (Ivpb) (Sodium Chloride 0.9% Ivpb Bag (08/10/18 22:08) Cbc With Automated Diff (08/10/18:57) Magnesium (08/10/18 21:57) Chest 1 View, Ap/Pa Only (08/10/18 21:57) Ekg Tracing (08/10/18:57) Cardiac Profile 1 (08/10/18:57) Comprehensive Metabolic Panel (08/10/18 21:57) Myoglobin Serum (08/10/18:57) Protime With Inr (08/10/18:57) Partial Thromboplastin Time (08/10/18:57) O2 (08/10/18:57) Monitor-Rhythm Ecg Trace Only (08/10/18:57) Lipid Panel (08/11/18 06:00) Ed Iv/Invasive Line Start (08/10/18:57) BNP (08/10/18:57) Aspirin Chewable Tablet (Baby Aspirin Ch (08/10/18 22:00) Hcg,Qualitative Serum (08/10/18:57) Thyroid Analyzer (08/10/18 21:57) Ekg Tracing (08/10/18:57) Ekg Tracing (08/10/18:57) Diltiazem Injection (Cardizem Injection) (08/10/18 22:17) Ns (Ivpb) (Sodium C... W/Diltiazem Iv Fo (08/10/18 22:30) Diltiazem Injection (Cardizem Injection) (08/10/18 22:30) Adenosine Injection (Adenocard Injection (08/10/18 23:00) Adenosine Injection (Adenocard Injection (08/10/18 23:00) Adenosine Injection (Adenocard Injection (08/10/18 23:00) Free T4 (Free Thyroxine) (08/10/18 22:02) Medications Given in ED Current Medications Medications Dose Ordered Sig/Paige Route Start Time Stop Time Status Last Admin Dose Admin Adenosine 6 mg STK-MED ONCE IV 08/10/18 21:57 08/10/18 22:03 DC 08/10/18 22:51 6 MG Adenosine 12 mg ONCE ONCE IV 08/10/18 23:00 08/10/18 23:01 DC 08/10/18 22:08 12 MG Adenosine 12 mg ONCE ONCE IV 08/10/18 23:00 08/10/18 23:01 DC 08/10/18 22:11 12 MG Aspirin 324 mg ONCE ONCE PO 08/10/18 22:00 08/10/18 22:21 DC 08/10/18 22:49 324 MG Diltiazem HCl 25 mg ONCE ONCE IVP 08/10/18 22:30 08/10/18 22:31 DC 08/10/18 22:35 25 MG Vital Signs/I&O 08/10/18 08/10/18 08/10/18 22:00 22:00 22:36 Temp 98.9 Pulse 240 109 Resp 22 14 B/P (MAP) 106/67 (80) 119/71 Pulse Ox 98 100 O2 Delivery Room Air Room Air Room Air Blood Pressure Mean: 87 Progress Progress Note : Progress Note GIVEN ADENOSINE-6 MG, 12 MG X 2, WITH VERY BRIEF CONVERSION THEN BACK TO SVT IN 220 VAGAL MANEUVER DONE WITH BRIEF DECREASE IN HEART RATE/CONVERSION CARDIZEM BOLUS GIVEN AND CONVERTED TO NSR RATE 108, THEN PLACED ON A CARDIZEM DRIP NO DETERIORATION IN PT'S CONDITION DURING ER STAY Initial ECG Impression Date: Aug 10, 2018 Initial ECG Impression Time: 21:59 Initial ECG Rate: 222 Initial ECG Rhythm: SVT EKG : EKG Time: 22:14 Rate: 108 Rhythm: S.Tach Comment EKG #3 AT 2216--RATE 109, SINUS TACH Diagnostic Imaging Comments CXR--? RIGHT PERIHILAR PROMINENCE? PENDING RADIOLOGIST REVIEW Reviewed: Reviewed by Me Departure Communication (Admissions) 2306--SPOKE WITH DR. AYERS, ACCEPTS PT FOR ADMIT TO DR. LADD, ADVISED TO GIVE LOVENOX Impression Primary Impression: PSVT (paroxysmal supraventricular tachycardia) Additional Impressions: Mild dehydration HX OF ATRIAL FLUTTER--S/P ABLATION Elevated TSH Disposition: ADMITTED INPATIENT Condition: Improved Admissions Decision to Admit Reason: Admit from ER (General) Decision to Admit/Date: Aug 10, 2018 Time/Decision to Admit Time: 23:05 Departure-Patient Inst. Referrals: MARLENE GALLEGOS MD (PCP/Family) Primary Care Physician MARIEL CLINTON DO Aug 10, 2018 22:59
[2018-08-10 23:11] LABS: TSH (THYROID ANALYZER) 12.81 UIU/ML (0.35-4.94)
--- NOTE | 2018-08-10 23:12 | NUR ---
cardiazem bolus 25mg administered at 2215 cardiazem drip 10mg/hr initiated at 2224
[2018-08-10] MEDS ORDERED: ENOXAPARIN 100 MG/1 ML (LOVENOX) SYR SC ONE (23:15)
[2018-08-10 23:43] LABS: FREE T4 (FREE THYROXINE) 0.9 NG/DL (0.70-1.48)
[2018-08-11] VITALS (15 sets, daily range): BP systolic 92–118; BP diastolic 59–80
[2018-08-11] MEDS ORDERED: CATHETER FLUSH 10 ML SYR IV PRN (02:30)
[2018-08-11] MEDS ORDERED: NS IV 1000 ML 1,000 ML IV SCH (02:30)
[2018-08-11] MEDS: DILTIAZEM 125 MG/NS 100 ML IV SCH ×4 (03:56→07:30)
[2018-08-11 04:12] LABS: BASOPHILS % (AUTO) 0 % (0-10); EOSINOPHILS # (AUTO) 0.1 10^3/uL (0.0-0.3); EOSINOPHILS % (AUTO) 2 % (0-10); HEMATOCRIT 41 % (35-52); HEMOGLOBIN 14.7 G/DL (11.5-16.0); LYMPHOCYTES # (AUTO) 3.4 X 10^3 (1.0-4.0); LYMPHOCYTES % (AUTO) 42 % (12-44); MEAN CORPUSCULAR HEMOGLOBIN 32 PG (25-34); MEAN CORPUSCULAR HGB CONC 36 G/DL (32-36); MEAN CORPUSCULAR VOLUME 91 FL (80-99); MEAN PLATELET VOLUME 9.8 FL (7.4-10.4); MONOCYTES # (AUTO) 0.6 X 10^3 (0.0-1.0); MONOCYTES % (AUTO) 8 % (0-12); NEUTROPHILS % (AUTO) 49 % (42-75); PLATELET COUNT 276 10^3/uL (130-400); RED CELL DISTRIBUTION WIDTH 12.1 % (10.0-14.5); WHITE BLOOD COUNT 8.1 10^3/uL (4.3-11.0)
[2018-08-11 04:38] LABS: ALANINE AMINOTRANSFERASE 19 U/L (0-55); ALKALINE PHOSPHATASE 47 U/L (40-136); BILIRUBIN,TOTAL 0.3 MG/DL (0.1-1.0); BUN/CREATININE RATIO 23; CALCIUM 8.7 MG/DL (8.5-10.1); CARBON DIOXIDE 18 MMOL/L (21-32); CHLORIDE 108 MMOL/L (98-107); CREATININE SERUM 0.73 MG/DL (0.60-1.30); GFR ESTIMATED > 60; GLUCOSE 80 MG/DL (70-105); MAGNESIUM 2.1 MG/DL (1.8-2.4); PHOSPHORUS 3.7 MG/DL (2.3-4.7); POTASSIUM 3.9 MMOL/L (3.6-5.0); SODIUM 138 MMOL/L (135-145); TOTAL PROTEIN 6.4 GM/DL (6.4-8.2)
[2018-08-11 04:39] LABS: CHOLESTEROL 228 MG/DL (< 200); HDL CHOLESTEROL 35 MG/DL (40-60); TRIGLYCERIDES 285 MG/DL (<150); VLDL CHOLESTEROL 57 MG/DL (5-40)
[2018-08-11] MEDS ORDERED: ACETAMINOPHEN 500 MG TAB (TYLENOL) PO ONE (05:45)
[2018-08-11] MEDS ORDERED: CATHETER FLUSH 10 ML SYR IV SCH (06:00)
--- NOTE | 2018-08-11 06:40 | Diagnostic Imaging Report ---
INDICATION: Shortness of breath COMPARISON: 05/22/2017 FINDINGS: Single view of the chest demonstrates clear lungs bilaterally. The heart is normal. There is no pneumothorax. The osseous structures normal. IMPRESSION: Negative chest Dictated by: Dictated on workstation # [id number]
[2018-08-11] MEDS ORDERED: DILTIAZEM 125 MG/25 ML IV (CARDIZEM) IV ONE (07:22)
[2018-08-11] MEDS ORDERED: NS (IVPB) 100 ML ONE (07:23)
--- NOTE | 2018-08-11 08:28 | Consultation ---
History of Present Illness History of Present Illness Patient Consulted On(robyn/time) 08/11/18 08:28 Allergies and Home Medications Allergies Coded Allergies: Penicillins (Verified Allergy, Unknown, 02/23/08) Home Medications Apixaban 5 Mg Tablet, 5 MG PO BID, (Reported) Diltiazem HCl 240 Mg Cap.er.24h, 240 MG PO DAILY, (Reported) Flecainide Acetate 50 Mg Tablet, 50 MG PO BID, (Reported) Past Khtyrrb-Gfexms-Aheesn Hx Patient Social History Alcohol Use: Denies Use Recreational Drug Use: No Smoking Status: Never a Smoker 2nd Hand Smoke Exposure: No Recent Foreign Travel: No Contact w/Someone Who Travel: No Recent Infectious Disease Expo: No Recent Hopitalizations: No Immunizations Up To Date Date of Influenza Vaccine: Mar 27, 2017 Seasonal Allergies Seasonal Allergies: Yes Past Medical History Surgeries: Yes ( X 2; CARDIAC ABLATION; WISDOM TEETH) Cardiac, Section Respiratory: No Cardiac: Yes (paroxysmal atrial flutter with RVR) Irregular Heartbeat Neurological: Yes (concussion in 2017) Concussion Reproductive Disorders: No Sexually Transmitted Disease: No Genitourinary: No Gastrointestinal: No Musculoskeletal: No Endocrine: No HEENT: Yes (glasses) Cancer: No Psychosocial: No Integumentary: No Blood Disorders: No Adverse Reaction/Blood Tranf: No Family Medical History Hypertension 19 FATHER 19 MOTHER Physical Exam-General Problems Physical Exam Vital Signs Vital Signs - First Documented 08/10/18 00:06 Temp 98.0 Pulse 108 Resp 21 B/P (MAP) 118/72 (87) O2 Delivery Room Air Capillary Refill : Greater Than 3 Seconds Clinical Quality Measures DVT/VTE Risk/Contraindication: Risk Factor Score Per Nursin RFS Level Per Nursing on Admit: 1=Low/No VTE PPX MARLENE GALLEGOS MD Aug 11, 2018 08:28
[2018-08-11] MEDS ORDERED: ENOXAPARIN 100 MG/1 ML (LOVENOX) SYR SC SCH (09:00)
[2018-08-11] MEDS ORDERED: ASPIRIN E.C. 325 MG (ECOTRIN) TABLET PO SCH (09:00)
[2018-08-11] MEDS ORDERED: DILT240C53 PO (09:49)
[2018-08-11] MEDS ORDERED: APIX5TAB PO (09:49)
--- NOTE | 2018-08-11 09:55 | Short Stay Summary ---
History of Present Illness History of Present Illness Reason for visit/HPI 33 years old lady with history of paroxysmal atrial flutter, underwent ablation in in June 2017 and has been doing well until yesterday when she started having palpitation with rapid heart rate, had a heart rate around 220, came into the emergency room, given adenosine then started on Cardizem drip, converted to sinus rhythm on Cardizem drip. Denied any chest pain, has been doing well until this episode. No syncope or near syncopal episodes. No claudications. Date of Admission Aug 10, 2018 at 23:05 Date of Discharge August 11, 2018 Time Seen by Provider: 09:52 Attending Physician Kortney Adair MD Facp Fac Ccds Admitting Physician Nilda Pacheco MD Consult Allergies and Home Medications Allergies Coded Allergies: Penicillins (Verified Allergy, Unknown, 02/23/08) Home Medications Apixaban 5 Mg Tablet, 5 MG PO BID, (Reported) Diltiazem HCl 240 Mg Cap.er.24h, 240 MG PO DAILY, (Reported) Flecainide Acetate 50 Mg Tablet, 50 MG PO BID, (Reported) Patient Home Medication List Home Medication List Reviewed: Yes Past Vbsrnfj-Muqmzx-Inkmqc Hx Patient Social History Marrital Status: Employed/Student: employed Alcohol Use: Denies Use Recreational Drug Use: No Smoking Status: Never a Smoker 2nd Hand Smoke Exposure: No Recent Foreign Travel: No Contact w/other who traveled: No Recent Hopitalizations: No Recent Infectious Disease Expo: No Immunizations Up To Date Date of Influenza Vaccine: Mar 27, 2017 Seasonal Allergies Seasonal Allergies: Yes Surgeries Yes ( X 2; CARDIAC ABLATION; WISDOM TEETH) Cardiac, Section Respiratory No Cardiovascular Yes (paroxysmal atrial flutter with RVR) Irregular Heartbeat Neurological Yes (concussion in 2017) Concussion Reproductive System Hx Reproductive Disorders: No Sexually Transmitted Disease: No Genitourinary No Gastrointestinal No Musculoskeletal No Endocrine History of Endocrine Disorders: No HEENT History of HEENT Disorders: Yes (glasses) Cancer No Psychosocial History of Psychiatric Problem: No Integumentary History of Skin or Integumenta: No Blood Transfusions History of Blood Disorders: No Adverse Reaction to a Blood Tr: No Family Medical History Family Hx: Hypertension 19 FATHER 19 MOTHER Review of Systems Constitutional: no symptoms reported, see HPI EENTM: see HPI, no symptoms reported Respiratory: no symptoms reported, see HPI Cardiovascular: see HPI; No chest pain, No edema, No Hx of Intervention; palp itations; No syncope, No vascular heart diseas, No other Gastrointestinal: no symptoms reported, see HPI Genitourinary: no symptoms reported, see HPI Musculoskeletal: no symptoms reported, see HPI Skin: no symptoms reported, see HPI Psychiatric/Neurological: No Symptoms Reported, See HPI Physical Exam Vital Signs Vital Signs - First Documented 08/10/18 00:06 Temp 98.0 Pulse 108 Resp 21 B/P (MAP) 118/72 (87) O2 Delivery Room Air Capillary Refill : Greater Than 3 Seconds Height, Weight, BMI Height: 5'11.00" Weight: 202lbs. 6.0oz. [id number]; 28.8 BMI Method:Stated General Appearance: No Apparent Distress, WD/WN Eyes: Bilateral Eye Normal Inspection, Bilateral Eye PERRL, Bilateral Eye EOMI HEENT: PERRL/EOMI, TMs Normal, Normal ENT Inspection, Pharynx Normal Neck: Full Range of Motion, Normal Inspection, Non Tender, Supple, Carotid Bruit Respiratory: Chest Non Tender, Lungs Clear, Normal Breath Sounds, No Accessory Muscle Use, No Respiratory Distress Cardiovascular: Regular Rate, Rhythm, No Edema, No Gallop, No JVD, No Murmur, Normal Peripheral Pulses Gastrointestinal: Normal Bowel Sounds, No Organomegaly, No Pulsatile Mass, Non Tender, Soft Back: Normal Inspection, No CVA Tenderness, No Vertebral Tenderness Extremity: Normal Capillary Refill, Normal Inspection, Normal Range of Motion, Non Tender, No Calf Tenderness, No Pedal Edema Neurologic/Psychiatric: Alert, Oriented x3, No Motor/Sensory Deficits, Normal Mood/Affect Skin: Normal Color, Warm/Dry Lymphatic: No Adenopathy Clinical Quality Measures Admission Status Admission Status: Observation DVT/VTE Risk/Contraindication: Risk Factor Score Per Nursin RFS Level Per Nursing on Admit: 1=Low/No VTE PPX Short Stay Diagnosis Discharge Diagnosis-Short Stay Admission Diagnosis: Paroxysmal atrial flutter Tachycardia Palpitation Hypothyroidism Final Discharge Diagnosis: Paroxysmal atrial flutter Tachycardia Palpitation Hypothyroidism Conclusion Labs Laboratory Tests 08/10/18 22:02: White Blood Count 12.1H, Red Blood Count 4.98, Hemoglobin 16.1H, Hematocrit 45, Mean Corpuscular Volume 90, Mean Corpuscular Hemoglobin 32, Mean Corpuscular Hemoglobin Concent 36, Red Cell Distribution Width 12.3, Platelet Count 323, Mean Platelet Volume 10.2, Neutrophils (%) (Auto) 49, Lymphocytes (%) (Auto) 42, Monocytes (%) (Auto) 8, Eosinophils (%) (Auto) 1, Basophils (%) (Auto) 0, Neutrophils # (Auto) 5.9, Lymphocytes # (Auto) 5.0H, Monocytes # (Auto) 1.0, Eosinophils # (Auto) 0.2, Basophils # (Auto) 0.0, Prothrombin Time 14.0, INR Comment 1.0, Activated Partial Thromboplast Time 33, Sodium Level 138, Potassium Level 4.0, Chloride Level 102, Carbon Dioxide Level 17L, Anion Gap 19H, Blood Urea Nitrogen 23H, Creatinine 0.94, Estimat Glomerular Filtration Rate > 60, BUN/Creatinine Ratio 24, Glucose Level 86, Calcium Level 9.9, Corrected Calcium , Magnesium Level 2.2, Total Bilirubin 0.4, Aspartate Amino Transf (AST/SGOT) 24, Alanine Aminotransferase (ALT/SGPT) 24, Alkaline Phosphatase 55, Myoglobin 275.9H, Troponin I < 0.028, B-Type Natriuretic Peptide 10.0, Total Protein 7.7, Albumin 4.7H, Free Thyroxine 0.90, TSH Johnston Testing 12.81H, Serum Test, Qualitative NEGATIVE 08/11/18 03:50: White Blood Count 8.1, Red Blood Count 4.55, Hemoglobin 14.7, Hematocrit 41, Mean Corpuscular Volume 91, Mean Corpuscular Hemoglobin 32, Mean Corpuscular Hemoglobin Concent 36, Red Cell Distribution Width 12.1, Platelet Count 276, Mean Platelet Volume 9.8, Neutrophils (%) (Auto) 49, Lymphocytes (%) (Auto) 42, Monocytes (%) (Auto) 8, Eosinophils (%) (Auto) 2, Basophils (%) (Auto) 0, Neutrophils # (Auto) 4.0, Lymphocytes # (Auto) 3.4, Monocytes # (Auto) 0.6, Eosinophils # (Auto) 0.1, Basophils # (Auto) 0.0, Sodium Level 138, Potassium Level 3.9, Chloride Level 108H, Carbon Dioxide Level 18L, Anion Gap 12, Blood Urea Nitrogen 17, Creatinine 0.73, Estimat Glomerular Filtration Rate > 60, BUN/Creatinine Ratio 23, Glucose Level 80, Calcium Level 8.7, Corrected Calcium 8.7, Magnesium Level 2.1, Total Bilirubin 0.3, Aspartate Amino Transf (AST/SGOT) 18, Alanine Aminotransferase (ALT/SGPT) 19, Alkaline Phosphatase 47, Total Protein 6.4, Albumin 4.0, Phosphorus Level 3.7, Triglycerides Level 285H, Cholesterol Level 228H, LDL Cholesterol Direct 174H, VLDL Cholesterol 57H, HDL Cholesterol 35L Conclusion/Plan Paroxysmal atrial flutter, had ablation done in June 2017 at , had a breakthrough atrial flutter, I will start her back on Eliquis, provided her with prescription for Cardizem to be used as needed for tachycardia and palpitation. I gave her a copy of her EKG and schedule an appointment with Dr. Don for possible reevaluation. Currently in sinus rhythm and doing well. Tachycardia, Secondary to atrial flutter, back in sinus rhythm and doing well. Palpitation, Secondary to tachycardia, better at this time. Hypothyroidism, History of elevated TSH, scheduled for ultrasound of the thyroid, followed by Dr. Pacheco Hyperlipidemia, educated on diet, reevaluate lipid profile. GAIL AYERS MD Aug 11, 2018 09:55
[2018-08-11] MEDS ORDERED: NS IV 1000 ML 1,000 ML IV ONE (11:29)
--- NOTE | 2018-08-11 12:36 | Diagnostic Imaging Report ---
PROCEDURE: US Thyroid. TECHNIQUE: Multiple Real-time grayscale images were obtained of the thyroid in various projections. INDICATION: Nontoxic goiter. FINDINGS: The previous thyroid ultrasound exam performed on 06/25/2017 noted that the thyroid gland was not enlarged. Both lobes did show marked heterogeneously however. On this study, the thyroid gland is similar in size to the previous exam. The right lobe measures 4.2 x 1.8 x 1.5 cm while the left lobe is estimated to be 4.7 x 1.5 x 1.8 cm (normal gland size 4-5 x 2 x 2 cm or less). As noted on the prior exam, each lobe has a heterogeneous appearance; however, in the interval since the prior study, a fairly well circumscribed hyperechoic lesion has developed in the midportion of the left lobe of the thyroid. This lesion measures 5.3 x 5.5 x 6.1 MM in size. There is also a 0.9 x 0.4 x 0.6 cm hypoechoic area in the right lobe. In reviewing the previous exam, I do feel that this finding was present and has not changed significantly. The overall appearance of the thyroid gland is no different. IMPRESSION: 1. There is a small subcentimeter hyperechoic lesion now present in the left lobe of the thyroid. The precise etiology of this finding is not certain but it is unlikely that this is neoplastic in nature. Even so, a short-term (3 month) followup thyroid ultrasound exam would be recommended. 2. The overall appearance of the thyroid gland is otherwise unchanged. Dictated by: Dictated on workstation # [id number]
== END 2018-08-11 09:50 | disposition home or self-care (01) ==
LOC: EDUNIT# 21:55 → ER 21:57 → ICU 23:05
PROVIDERS: ADMIT Internal Medicine Cardiovascular Disease; ATTEND Internal Medicine Cardiovascular Disease
DX: I48.92 Unspecified atrial flutter (principal); E86.0 Dehydration; E03.9 Hypothyroidism, unspecified; E78.5 Hyperlipidemia, unspecified; Z79.899 Other long term (current) drug therapy
CPT/HCPCS: 36415; 71045; 76536; 80053; 80061; 83735; 83874; 83880; 84100; 84439; 84443; 84484; 84703; 85025; 85610; 85730; 86376; 86800; 87081; 93005; 93041; 96372; 96374; 96375; G0378

== ENCOUNTER → 2018-12-11 | Outpatient (CLI) | payer OTHER ==
--- NOTE | 2018-12-11 09:17 | Diagnostic Imaging Report ---
PROCEDURE: US Thyroid. TECHNIQUE: Multiple real-time grayscale images were obtained of the thyroid in various projections. INDICATION: Thyroid nodules. Correlation is made with prior thyroid ultrasound from 08/11/2018. FINDINGS: Right lobe of the thyroid measures 5.1 x 1.6 x 1.7 cm and the left lobe measures 5.0 x 1.6 x 2.2 cm. Isthmus is 5 mm in thickness. Diffuse parenchymal heterogeneity is again noted. Hyperechoic nodule lower pole left lobe is again noted but smaller in size at approximately 3 mm compared with 6 mm on prior. No definite nodule on the right is detected. No new mass is seen. IMPRESSION: Mild thyromegaly and heterogeneity. Hyperechoic nodule left lobe has decreased in size measures 3 mm on today's exam. No new abnormality is detected. Dictated by: Dictated on workstation # [id number]
[2018-12-11 09:25] LABS: FREE T4 (FREE THYROXINE) 0.78 NG/DL (0.70-1.48)
== END ==
LOC: RAD 08:05
PROVIDERS: ATTEND Nurse Practitioner Family
DX: E04.2 Nontoxic multinodular goiter (principal)
CPT/HCPCS: 36415; 76536; 84439; 84443

== ENCOUNTER → 2018-12-15 | Outpatient (CLI) | payer OTHER ==
--- NOTE | 2018-12-15 13:31 | Diagnostic Imaging Report ---
INDICATION: Right breast pain. COMPARISON: No prior mammograms are available for comparison. TECHNIQUE: Unilateral right 2D and 3D diagnostic mammography was performed with CAD. A BB marker was placed at the area of pain in the upper outer right breast at posterior depth. FINDINGS: Scattered fibroglandular densities are noted. No mass or malignant appearing microcalcifications are seen. The axillae are unremarkable. IMPRESSION: No suspicious mammographic findings are identified. Even so, a right breast ultrasound of the area of pain in the upper-outer right breast is recommended and will be performed today. ACR BI-RADS Category 0: Incomplete. (Needs additional imaging evaluation). Result letter will be mailed to the patient. Note: At least 10% of breast cancer is not imaged by mammography. Dictated by: Dictated on workstation # [id number]
--- NOTE | 2018-12-15 13:43 | Diagnostic Imaging Report ---
INDICATION: Right breast pain COMPARISON: Correlation is made with the diagnostic mammogram from earlier this same day. FINDINGS: Sonographic interrogation of the area of pain in the upper and outer right breast was performed. No sonographic abnormality is seen. No solid or cystic mass is detected. IMPRESSION: No sonographic abnormality is detected. ACR BI-RADS Category 1: Negative. Dictated by: Dictated on workstation # [id number]
== END ==
LOC: RAD 12:57
PROVIDERS: ATTEND Family Medicine
DX: N64.4 Mastodynia (principal)

== ENCOUNTER 2019-10-03 03:57 | Emergency (ER) | payer OTHER ==
[~2019-10-03] VITALS: Ht 172 cm; Wt 72.0 kg
[~2019-10-03 03:57] MED LIST changes: +DILT240C92 PO; -DILT240C97 PO
[2019-10-03 04:05] VITALS: BP 140/101
[2019-10-03] MEDS ORDERED: FAMOTIDINE 20MG/2ML IV (PEPCID) IVP ONE (04:15)
[2019-10-03] MEDS ORDERED: fentaNYL INJECTION 100 MCG/2 ML AMP IVP ONE (04:15)
[2019-10-03] MEDS ORDERED: ONDANSETRON 4 MG/2 ML (SDV) Z0FRAN IVP ONE (04:15)
[2019-10-03 04:20] LABS: BILIRUBIN,URINE NEGATIVE (NEGATIVE); CLARITY,URINE CLEAR; COLOR,URINE YELLOW; GLUCOSE, URINE (UA) NEGATIVE (NEGATIVE); KETONES,URINE NEGATIVE (NEGATIVE); LEUKOCYTE ESTERASE ,URINE TRACE (NEGATIVE); NITRITE,URINE NEGATIVE (NEGATIVE); PROTEIN,URINE NEGATIVE (NEGATIVE)
[2019-10-03 04:36] LABS: BASOPHILS % (AUTO) 0 % (0-10); EOSINOPHILS # (AUTO) 0.2 10^3/uL (0.0-0.3); EOSINOPHILS % (AUTO) 2 % (0-10); HEMATOCRIT 43 % (35-52); LYMPHOCYTES # (AUTO) 2.3 X 10^3 (1.0-4.0); LYMPHOCYTES % (AUTO) 28 % (12-44); MEAN CORPUSCULAR HEMOGLOBIN 33 PG (25-34); MEAN CORPUSCULAR HGB CONC 35 G/DL (32-36); MEAN CORPUSCULAR VOLUME 93 FL (80-99); MEAN PLATELET VOLUME 10.1 FL (7.4-10.4); MONOCYTES # (AUTO) 0.6 X 10^3 (0.0-1.0); MONOCYTES % (AUTO) 7 % (0-12); NEUTROPHILS # (AUTO) 5.2 X 10^3 (1.8-7.8); NEUTROPHILS % (AUTO) 62 % (42-75); PLATELET COUNT 277 10^3/uL (130-400); RED CELL DISTRIBUTION WIDTH 12.6 % (10.0-14.5); WHITE BLOOD COUNT 8.3 10^3/uL (4.3-11.0)
[2019-10-03 04:37] LABS: BACTERIA,URINE TRACE /HPF; SQUAMOUS EPITHELIAL CELL,UR 0-2 /HPF
[2019-10-03 04:38] LABS: ALBUMIN 4.3 GM/DL (3.2-4.5)
[2019-10-03 04:39] LABS: CHLORIDE 109 MMOL/L (98-107); SODIUM 141 MMOL/L (135-145)
[2019-10-03 04:41] LABS: GLUCOSE 104 MG/DL (70-105); TOTAL PROTEIN 6.8 GM/DL (6.4-8.2)
[2019-10-03 04:42] LABS: CARBON DIOXIDE 21 MMOL/L (21-32)
[2019-10-03 04:43] LABS: BILIRUBIN,TOTAL 0.5 MG/DL (0.1-1.0)
[2019-10-03 04:44] LABS: ALKALINE PHOSPHATASE 46 U/L (40-136)
[2019-10-03 04:45] LABS: GFR ESTIMATED > 60
[2019-10-03 04:46] LABS: BUN/CREATININE RATIO 13
[2019-10-03] MEDS ORDERED: morphine INJ 10 MG/ML 1ML (SYR OR VIAL) IVP STA (04:46)
[2019-10-03 04:48] LABS: ALANINE AMINOTRANSFERASE 15 U/L (0-55); LIPASE 39 U/L (8-78)
--- NOTE | 2019-10-03 05:07 | ED Abdominal Pain ---
General Chief Complaint: Abdominal/GI Problems Stated Complaint: SEVERE ABD PAIN Nursing Triage Note: complaint of abd pain x1 week, states worsen today Sepsis Screen: No Definite Risk Source of Information: Patient Exam Limitations: No Limitations History of Present Illness Date Seen by Provider: Oct 03, 2019 Time Seen by Provider: 04:02 Initial Comments This 34-year-old woman presents to the emergency room complaining of pain across the upper abdomen and nausea. Pain is been worsening over the last week. She had taken [id number] Prilosec a few weeks ago which improved her pain. Pain then returned and she started Protonix a few days ago. Protonix has not se emed to improve her pain. She denies any fever. She does not drink alcohol. She has not had vomiting or diarrhea. She reports subjective history of ulcer. She has never had an endoscopy. Allergies and Home Medications Allergies Coded Allergies: Penicillins (Verified Allergy, Unknown, 02/23/08) Home Medications Apixaban 5 Mg Tablet, 5 MG PO BID Prescribed by: GAIL AYERS on 08/11/18 0949 Diltiazem HCl 240 Mg Cap.er.24h, 240 MG PO DAILY take 1 tablet as needed for palpitation and tachycardia Prescribed by: GAIL AYERS on 08/11/18 0949 Famotidine 20 Mg Tablet, 20 MG PO BID Prescribed by: SAURABH YOU on 10/03/19 0547 Sucralfate 1 Gm Tablet, 1 GM PO QID Crush or soak in 5-10 ML of water to make a slurry Take 30 minutes before meals and bedtime. Prescribed by: SAURABH YOU on 10/03/19 0547 Patient Home Medication List Home Medication List Reviewed: Yes Review of Systems Review of Systems Constitutional: no symptoms reported EENTM: No Symptoms Reported Respiratory: No Symptoms Reported Cardiovascular: No Symptoms Reported Gastrointestinal: See HPI Genitourinary: No Symptoms Reported Musculoskeletal: no symptoms reported Skin: no symptoms reported Psychiatric/Neurological: No Symptoms Reported Endocrine: No Symptoms Reported Hematologic/Lymphatic: No Symptoms Reported Past Lcmogxo-Dglgjk-Kwjlpo Hx Past Med/Social Hx: Reviewed Nursing Past Med/Soc Hx Patient Social History Alcohol Use: Denies Use Recreational Drug Use: No Smoking Status: Never a Smoker 2nd Hand Smoke Exposure: No Recent Foreign Travel: No Contact w/Someone Who Travel: No Recent Infectious Disease Expo: No Recent Hopitalizations: No Physical Abuse: No Sexual Abuse: No Mistreated: No Fear: No Immunizations Up To Date Tetanus Booster (TDap): Unknown Date of Influenza Vaccine: Mar 27, 2017 Seasonal Allergies Seasonal Allergies: Yes Past Medical History Surgeries: Yes ( X 2; CARDIAC ABLATION; WISDOM TEETH) Cardiac, Section Respiratory: No Cardiac: Yes (paroxysmal atrial flutter with RVR) Irregular Heartbeat Neurological: Yes (concussion in 2017) Concussion Reproductive Disorders: No Sexually Transmitted Disease: No Genitourinary: No Gastrointestinal: No Musculoskeletal: No Endocrine: No HEENT: Yes (glasses) Cancer: No Psychosocial: No Integumentary: No Blood Disorders: No Adverse Reaction/Blood Tranf: No Family Medical History Hypertension 19 FATHER 19 MOTHER Hypertension Physical Exam Vital Signs Vital Signs - First Documented 10/03/19 04:05 Temp 36.6 Pulse 70 Resp 18 B/P (MAP) 140/101 (114) Pulse Ox 99 O2 Delivery Room Air Capillary Refill : Less Than 3 Seconds Height/Weight/BMI Height: 5'11.00" Weight: 202lbs. 6.0oz. 91.126003pg; 24.00 BMI Method:Stated General Appearance: WD/WN, moderate distress HEENT: PERRL/EOMI, normal ENT inspection, pharynx normal Neck: normal inspection Respiratory: lungs clear, normal breath sounds, no respiratory distress, no accessory muscle use Cardiovascular: regular rate, rhythm, no edema, no murmur Gastrointestinal: normal bowel sounds, soft, tenderness (all across the upper abdomen just beneath the costal margin) Extremities: normal inspection Neurologic/Psychiatric: refrigerator car icer II-XII nml as tested, no motor/sensory deficits, alert, normal mood/affect, oriented x 3 Skin: normal color, warm/dry Progress/Results/Core Measures Results/Orders Lab Results Laboratory Tests Test 10/03/19 04:05 10/03/19 04:12 Range/Units Urine Color YELLOW Urine Clarity CLEAR Urine pH 7.0 5-9 Urine Specific [place] <=1.005 1.016-1.022 Urine Protein NEGATIVE NEGATIVE Urine Glucose (UA) NEGATIVE NEGATIVE Urine Ketones NEGATIVE NEGATIVE Urine Nitrite NEGATIVE NEGATIVE Urine Bilirubin NEGATIVE NEGATIVE Urine Urobilinogen 0.2 < = 1.0 MG/DL Urine Leukocyte Esterase TRACE H NEGATIVE Urine RBC (Auto) NEGATIVE NEGATIVE Urine RBC NONE /HPF Urine WBC 2-5 /HPF Urine Squamous Epithelial Cells 0-2 /HPF Urine Crystals NONE /LPF Urine Bacteria TRACE /HPF Urine Casts NONE /LPF Urine Mucus NEGATIVE /LPF Urine Culture Indicated NO White Blood Count 8.3 4.3-11.0 10^3/uL Red Blood Count 4.60 4.35-5.85 10^6/uL Hemoglobin 15.0 11.5-16.0 G/DL Hematocrit 43 35-52 % Mean Corpuscular Volume 93 80-99 FL Mean Corpuscular Hemoglobin 33 25-34 PG Mean Corpuscular Hemoglobin Concent 35 32-36 G/DL Red Cell Distribution Width 12.6 10.0-14.5 % Platelet Count 277 130-400 10^3/uL Mean Platelet Volume 10.1 7.4-10.4 FL Neutrophils (%) (Auto) 62 42-75 % Lymphocytes (%) (Auto) 28 12-44 % Monocytes (%) (Auto) 7 0-12 % Eosinophils (%) (Auto) 2 0-10 % Basophils (%) (Auto) 0 0-10 % Neutrophils # (Auto) 5.2 1.8-7.8 X 10^3 Lymphocytes # (Auto) 2.3 1.0-4.0 X 10^3 Monocytes # (Auto) 0.6 0.0-1.0 X 10^3 Eosinophils # (Auto) 0.2 0.0-0.3 10^3/uL Basophils # (Auto) 0.0 0.0-0.1 10^3/uL Sodium Level 141 135-145 MMOL/L Potassium Level 4.0 3.6-5.0 MMOL/L Chloride Level 109 H 98-107 MMOL/L Carbon Dioxide Level 21 21-32 MMOL/L Anion Gap 11 5-14 MMOL/L Blood Urea Nitrogen 12 7-18 MG/DL Creatinine 0.90 0.60-1.30 MG/DL Estimat Glomerular Filtration Rate > 60 BUN/Creatinine Ratio 13 Glucose Level 104 70-105 MG/DL Calcium Level 9.0 8.5-10.1 MG/DL Corrected Calcium 8.8 8.5-10.1 MG/DL Total Bilirubin 0.5 0.1-1.0 MG/DL Aspartate Amino Transf (AST/SGOT) 12 5-34 U/L Alanine Aminotransferase (ALT/SGPT) 15 0-55 U/L Alkaline Phosphatase 46 40-136 U/L C-Reactive Protein High Sensitivity 0.05 0.00-0.50 MG/DL Total Protein 6.8 6.4-8.2 GM/DL Albumin 4.3 3.2-4.5 GM/DL Lipase 39 8-78 U/L Serum Test, Qualitative NEGATIVE NEGATIVE My Orders Orders - SAURABH GILL MD Cbc With Automated Diff (10/03/19 04:10) Comprehensive Metabolic Panel (10/03/19 04:10) Hs C Reactive Protein (10/03/19 04:10) Hcg,Qualitative Serum (10/03/19 04:10) Lipase (10/03/19 04:10) Ua Culture If Indicated (10/03/19 04:10) Famotidine Injection (Pepcid Injection) (10/03/19 04:15) Ondansetron Injection (Zofran Injectio (10/03/19 04:15) Fentanyl Injection (Sublimaze Injection (10/03/19 04:15) Morphine Injection (Morphine Injection (10/03/19 04:46) Lidocaine 2% Viscous 15 Ml (Xylocaine Vi (10/03/19 05:15) Antacid Suspension (Mylanta Suspension (10/03/19 05:15) Medications Given in ED Current Medications Medications Dose Ordered Sig/Paige Route Start Time Stop Time Status Last Admin Dose Admin Al Hydrox/Mg Hydrox/Simethicone 30 ml ONCE ONCE PO 10/03/19 05:15 10/03/19 05:16 DC 10/03/19 05:13 30 ML Famotidine 20 mg ONCE ONCE IVP 10/03/19 04:15 10/03/19 04:16 DC 10/03/19 04:23 20 MG Fentanyl Citrate 75 mcg ONCE ONCE IVP 10/03/19 04:15 10/03/19 04:16 DC 10/03/19 04:21 75 MCG Lidocaine HCl 15 ml ONCE ONCE PO 10/03/19 05:15 10/03/19 05:16 DC 10/03/19 05:13 15 ML Ondansetron HCl 8 mg ONCE ONCE IVP 10/03/19 04:15 10/03/19 04:16 DC 10/03/19 04:20 8 MG Vital Signs/I&O 10/03/19 04:05 Temp 36.6 Pulse 70 Resp 18 B/P (MAP) 140/101 (114) Pulse Ox 99 O2 Delivery Room Air Blood Pressure Mean: 114 Progress Progress Note #1: Time: 05:07 Progress Note Patient was treated with fentanyl which did not improve her pain. Morphine was added. She still had significant residual pain and tenderness. On exam she still has tenderness throughout the upper abdomen. We will try GI cocktail. If that is not effective, we will obtain CT scan. Progress Note #2: Time: 05:38 Progress Note Patient had significant improvement in pain and tenderness after GI cocktail. We will add Carafate and Pepcid to her regimen and recommend follow-up for endoscopy. Departure Impression Primary Impression: Upper abdominal pain Disposition: HOME, SELF-CARE Condition: Improved Departure-Patient Inst. Decision time for Depature: 05:39 Referrals: MARLENE GALLEGOS MD (PCP/Family) Primary Care Physician Patient Instructions: Severe Abdominal Pain, Adult (DC), Gastritis (DC) Add. Discharge Instructions: Continue with Protonix and add Pepcid twice daily and Carafate 4 times daily as directed. Avoid the following: Eating large meals, eating close to bedtime, caffeine, carbonation, alcohol, tobacco, citrus fruits and juices, tomato products, spicy foods, mints, NSAID medications such as ibuprofen or naproxen, or anything else you know irritates your stomach. Follow-up with your primary care provider soon as possible to discuss further treatment as well as options for further evaluation such as gallbladder ultrasound and endoscopy. Return to the emergency room if you have worsening symptoms despite following the recommendations above. All discharge instructions reviewed with patient and/or family. Voiced understanding. Scripts Sucralfate (Carafate) 1 Gm Tablet 1 GM PO QID, #120 TAB Crush or soak in 5-10 ML of water to make a slurry Take 30 minutes before meals and bedtime. Prov: SAURABH GILL MD 10/03/19 Famotidine (Pepcid) 20 Mg Tablet 20 MG PO BID, #60 TAB Prov: SAURABH GILL MD 10/03/19 Copy Copies To 1: MARLENE GALLEGOS MD, JOSHUA T MD Oct 03, 2019 05:07
[2019-10-03] MEDS ORDERED: ANTACID SUSP 30 ML UDC (MYLANTA) PO ONE (05:15)
[2019-10-03] MEDS ORDERED: LIDOCAINE 2% VISCOUS 15 ML UDC PO ONE (05:15)
[2019-10-03] MEDS ORDERED: FAMO-119 PO (05:47)
[2019-10-03] MEDS ORDERED: SUCR1TAB36 PO (05:47)
== END 2019-10-03 06:00 | disposition home or self-care (01) ==
LOC: EDUNIT# 03:57 → ER 03:59
DX: R10.10 Upper abdominal pain, unspecified (principal); Z88.0 Allergy status to penicillin; Z82.49 Family history of ischemic heart disease and other diseases of the circulatory system
CPT/HCPCS: 36415; 80053; 81000; 83690; 84703; 85025; 86141

== ENCOUNTER → 2019-10-09 | Outpatient (CLI) | payer OTHER ==
[~2019-10-09] MED LIST changes: +FAMO-119 PO; +SUCR1TAB36 PO
--- NOTE | 2019-10-09 10:11 | Diagnostic Imaging Report ---
PROCEDURE: US Gallbladder. TECHNIQUE: Multiple real-time grayscale images were obtained over the right upper quadrant in various projections. INDICATION: Abdominal pain. Liver is normal in size 15 cm. There is a 1 cm cyst right lobe of the liver. No other liver masses are detected. The portal vein is patent and shows normal direction of flow. Gallbladder is without stones or sludge. No wall thickening or biliary duct dilatation is identified. Pancreas unremarkable. Aorta is non-aneurysmal. IVC is patent. Right kidney is without calculi or hydronephrosis. There is no ascites. IMPRESSION: 1. Small hepatic cyst. 2. No evidence of cholelithiasis or acute cholecystitis. Dictated by: Dictated on workstation # [id number]
== END ==
LOC: RAD 08:35
PROVIDERS: ATTEND Nurse Practitioner Family
DX: K76.89 Other specified diseases of liver (principal); R10.12 Left upper quadrant pain
CPT/HCPCS: 76705

== ENCOUNTER 2019-10-23 05:41 | Outpatient (RCR) | payer OTHER ==
[~2019-10-23] VITALS: Ht 170.2 cm; Wt 71.0 kg
[~2019-10-23 05:41] MED LIST changes: +PANT20TA2 PO
== END 2019-10-23 09:39 | disposition home or self-care (01) ==
LOC: PREOP 05:41
PROVIDERS: ATTEND Surgery
DX: Z01.818 Encounter for other preprocedural examination (principal); Z01.812 Encounter for preprocedural laboratory examination; K21.9 Gastro-esophageal reflux disease without esophagitis; Z20.828 Contact with and (suspected) exposure to other viral communicable diseases
CPT/HCPCS: 87635

== ENCOUNTER 2019-10-26 07:30 | Day surgery (SDC) | payer OTHER ==
[~2019-10-26] VITALS: Ht 170.2 cm; Wt 71.0 kg
[2019-10-26] VITALS (9 sets, daily range): BP systolic 112–128; BP diastolic 63–94
[2019-10-26] MEDS ORDERED: HURRICAINE EXT TUBE (BENZOCAINE) XX PRN (07:45)
[2019-10-26] MEDS ORDERED: LACTATED RINGERS 1,000 ML IV PRN (07:45)
[2019-10-26] MEDS ORDERED: LACTATED RINGERS 1,000 ML IV ONE (07:48)
--- NOTE | 2019-10-26 08:27 | Progress Note-Pre Operative ---
Pre-Operative Progress Note H&P Reviewed The H&P was reviewed, patient examined and no changes noted. Time Seen by Provider: 08:17 Date H&P Reviewed: Oct 26, 2019 Time H&P Reviewed: 08:18 Pre-Operative Diagnosis: LUQ pain, Gastritis NEREYDA GOMEZ DO Oct 26, 2019 08:27
[2019-10-26] MEDS ORDERED: PROPOFOL INJECTION 50 ML IV ONE (08:31)
[2019-10-26] MEDS ORDERED: MIDAZOLAM 2 MG/2 ML (VERSED) VIAL ONE (08:31)
--- NOTE | 2019-10-26 08:53 | Progress Note-Post Operative ---
Post-Operative Progess Note Surgeon (s)/Brake Operator Helper (s) Surgeon NEREYDA GOMEZ DO Brake Operator Helper: none Pre-Operative Diagnosis LUQ pain, Gastritis Post-Operative Diagnosis Gastritis Hiatal hernia Gastric Polyp Procedure & Operative Findings Date of Procedure 10/26/19 Procedure Performed/Findings EGD with bx Anesthesia Type IV sedation by CUSTOMER ACCOUNT SPECIALIST Estimated Blood Loss Estimated blood loss (mL): scant Specimens/Packing Specimens Removed Antral bx body of stomach bx GE jxn bx NEREYDA GOMEZ DO Oct 26, 2019 08:53
--- NOTE | 2019-10-26 08:56 | Endoscopy Discharge Instruct ---
Endo Procedure/Findings Findings 1.: Gastritis 2.: Hiatal Hernia 3.: Polyp Discharge Instructions - Activity: You might feel a little sleepy until tomorrow. This is due to the medicine you received to relax you. Until tomorrow, you should: NOT drive a car, operate machinery or power tools. NOT drink any alcoholic beverages. NOT make any important decisions or sign importortant papers. Do not return to work until tomorrow, unless otherwise instructed. Resume previous activities tomorrow. Diet: Start by taking liquids. If you tolerate liquids, advance to solid food. make an appt for one week 1.: EGD in 3 years Notify Physician - If you experience excessive bleeding, unusual abdominal pain, fever, or chest pain, contact your doctor immediately. NEREYDA GOMEZ DO Oct 26, 2019 08:56
--- NOTE | 2019-10-26 10:18 | Anesthesia-General Post-Op ---
MAC Patient Condition Mental Status/LOC: Same as Preop Cardiovascular: Satisfactory Nausea/Vomiting: Absent Respiratory: Satisfactory Pain: Controlled Complications: Absent Post Op Complications Complications None Follow Up Care/Instructions Patient Instructions None needed. Anesthesiology Discharge Order Discharge Order Patient is doing well, no complaints, stable vital signs, no apparent adverse anesthesia problems. No complications reported per nursing. BRIGITTE WEST CRNA Oct 26, 2019 10:18
--- NOTE | 2019-10-27 01:58 | OPERATIVE REPORT ---
DATE OF SERVICE: PREOPERATIVE DIAGNOSES: Left upper quadrant pain, gastritis. POSTOPERATIVE DIAGNOSES: Gastritis, hiatal hernia, gastric polyp. PROCEDURE: EGD with biopsy. SURGEON: Paul Shore DO. ORAL SURGEON: None. ANESTHESIA: IV sedation by the BUSINESS SERVICES ASSISTANT. SPECIMEN: Biopsy of the antrum, biopsy of body of stomach, biopsy of the GE junction. BLOOD LOSS: Scant. FLUIDS: Per anesthesia. POSTOPERATIVE CONDITION: Stable. INDICATION FOR PROCEDURE: The patient is a 34-year-old female who has been having some left upper quadrant pain and gastritis symptoms, needed a workup. FINDINGS: The patient had some gastritis, small hiatal hernia, and a gastric polyp. No other obvious pathology seen. PROCEDURE NOTE: After informed consent was obtained, the patient was brought to the endoscopy suite, placed in bed in left lateral decubitus position. She was administered IV sedation by the BUSINESS SERVICES ASSISTANT who then monitored her vitals the entire time, heart rate, blood pressure, and pulse ox and the scope was inserted down the mouth through the esophagus into the stomach. Upon entering the stomach, pushed towards the antrum, saw some mild inflammation, took a picture and then pushed into the duodenum. Duodenum looked fine, took a picture. Pulled back, did a biopsy of the antrum. Retroflexed the scope, saw small hiatal hernia, and then did a biopsy of body of stomach, also noted a gastric polyp, took a picture of this and then pulled the scope into the GE junction, did a biopsy and then suctioned. Pushed the scope back in the stomach, suctioned all the air out of stomach and then pulled the scope up the esophagus and out the mouth. The patient tolerated the procedure, recovered in endoscopy suite. Job ID: [id number] DocumentID: [id number] Dictated Date: 10/26/2019 15:30:31 Flight Control Specialist Date: 10/27/2019 01:57:32 Dictated By: PAUL SHORE DO
== END 2019-10-26 09:50 | disposition home or self-care (01) ==
LOC: ENDO 07:30
PROVIDERS: ATTEND Surgery
DX: K29.70 Gastritis, unspecified, without bleeding (principal); K44.9 Diaphragmatic hernia without obstruction or gangrene; K31.7 Polyp of stomach and duodenum; I48.92 Unspecified atrial flutter; Z79.82 Long term (current) use of aspirin; Z79.899 Other long term (current) drug therapy; Z88.0 Allergy status to penicillin
CPT/HCPCS: 84703; 88305

== ENCOUNTER 2022-05-07 20:43 | Emergency (ER) | payer OTHER ==
[~2022-05-07] VITALS: Ht 170 cm; Wt 93.0 kg
--- NOTE | 2022-05-07 22:21 | ED Lower Extremity ---
General Chief Complaint: Lower Extremity Stated Complaint: RIGHT CALF INJURY|MUSCLE PAIN Nursing Triage Note: c/o right posterior distal leg pain. 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 pt unable to bear weight on leg Source: patient, family, old records Exam Limitations: no limitations (GERALDINE RICE) History of Present Illness Date Seen by Provider: May 07, 2022 Time Seen by Provider: 21:39 Initial Comments Mrs. Sheffield is a 37 yo F with PMH of A-flutter corrected by ablation and hiatal hernia who presents to the ED with CC of non-radiating, sharp pain from the right calf that began this evening when she placed her full weight on a dorsiflexed foot during a dance lesson (performing an arabesque movement). Pt state that she felt a "poppng" sensation followed by pain in the right leg which now prevents from bearing weight on the leg due to pain. She took some Motrin to help with pain that had minimal effect and pain is made worse with movement. Denies N/V/F/C/D. Onset: this evening Severity: moderate Pain/Injury Location: right leg Method of Injury: sports injury Modifying Factors: Improves With Immobilization; Worse With Jarring, Worse With Movement; Improves With Pain Medication, Improves With Rest (GERALDINE RICE) Allergies and Home Medications Allergies Coded Allergies: Penicillins (Verified Allergy, Unknown, 02/23/08) Patient Home Medication List Home Medication List Reviewed: Yes (SAURABH GILL MD) Hydrocodone/Acetaminophen (Hydrocodone-Acetamin 5-325 mg) 5 Mg-325 Mg Tablet, 1 TAB PO Q4H PRN for PAIN BREAKTROUGH Prescribed by: SAURABH YOU on 05/07/22 2318 Discontinued Medications Famotidine (Pepcid) 20 Mg Tablet, 20 MG PO BID Discontinued Reason: No Longer Taking Prescribed by: SAURABH YOU on 10/03/19 0547 Last Action: Discontinued Pantoprazole Sodium (Protonix) 20 Mg Tablet.dr, 20 MG PO DAILY, (Reported) Discontinued Reason: No Longer Taking Entered as Reported by: LENO VASQUEZ on 10/19/19 1349 Last Action: Discontinued Sucralfate (Carafate) 1 Gm Tablet, 1 GM PO QID Discontinued Reason: No Longer Taking Prescribed by: SAURABH YOU on 10/03/19 7187 Last Action: Discontinued Review of Systems Constitutional: No chills, No fever EENTM: No hearing loss, No blurred vision Respiratory: No cough, No dyspnea on exertion Cardiovascular: No chest pain, No edema; Hx of Intervention Gastrointestinal: No abdominal pain, No diarrhea, No nausea, No vomiting Musculoskeletal: No back pain, No gout, No joint pain; muscle pain; No muscle cramps, No muscle twitching Skin: No change in color, No pruritus, No rash Psychiatric/Neurological: Denies Anxiety, Denies Depressed; Numbness (reduced sensation to right foot); Denies Tingling (GERALDINE RICE) Past Qitnaag-Dgicdu-Ypoqbk Hx Patient Social History Tobacco Use?: No Substance use?: No Alcohol Use?: No Pt feels they are or have been: No (GERALDINE RICE) Immunizations Up To Date Tetanus Booster (TDap): Unknown First/Initial COVID19 Vaccinat: x3 (GERALDINE RICE) Seasonal Allergies Seasonal Allergies: Yes (GERALDINE RICE) Past Medical History Surgery/Hospitalization HX: c-sect x2, cardiac ablation x2, dental Surgeries: Yes ( X 2; CARDIAC ABLATION; WISDOM TEETH) Cardiac, Section Respiratory: No Currently Using CPAP: No Currently Using BIPAP: No Cardiac: Yes (paroxysmal atrial flutter with RVR) Irregular Heartbeat Neurological: Yes (concussion in 2017) Concussion Last Menstrual Period: May 07, 2022 Reproductive Disorders: No Sexually Transmitted Disease: No Genitourinary: No Gastrointestinal: No Musculoskeletal: No Endocrine: No HEENT: Yes (glasses) Loss of Vision: Denies Hearing Impairment: Denies Cancer: No Psychosocial: No Integumentary: No Blood Disorders: No Adverse Reaction/Blood Tranf: No (GERALDINE RICE) Family Medical History Diabetes mellitus 19 FATHER FH: lung cancer 19 MOTHER Hypertension 19 FATHER 19 MOTHER Cancer (Mom has lung CA), Diabetes (Father has DM), Hypertension (GERALDINE RICE) Physical Exam Vital Signs Vital Signs - First Documented 05/07/22 20:47 Temp 36.7 Pulse 78 Resp 16 B/P (MAP) 133/90 (104) Pulse Ox 100 O2 Delivery Room Air (SAURABH GILL MD) Vital Signs Capillary Refill : Less Than 3 Seconds (GERALDINE RICE) Height, Weight, BMI Height: 5'11.00" Weight: 202lbs. 6.0oz. 91.560565os; 32.00 BMI Method:Stated General Appearance: WD/WN, no apparent distress HEENT: PERRL/EOMI, pharynx normal Neck: non-tender, full range of motion, supple Cardiovascular: regular rate, rhythm, no edema, no gallop, no murmur Respiratory: chest non-tender, lungs clear, normal breath sounds, no respiratory distress, no accessory muscle use Gastrointestinal: non tender, soft Back: no CVA tenderness, no vertebral tenderness Hips: bilateral hip non-tender, bilateral hip normal inspection Legs: left leg non-tender, left leg normal inspection, left leg normal range of motion, left leg no evidence of injury; right leg limited range of motion (secondary to pain - elicited by passive foot dosiflexion and platarflexion, foot eversion and inversion do not elicit pain), right leg pain, right leg soft tissue tenderness, right leg other (No apparent calf swelling, calcaneal tendon equal size BL) Knees: bilateral knee non-tender, bilateral knee normal inspection, bilateral knee normal range of motion Ankles: bilateral ankle non-tender, bilateral ankle normal inspection, bilateral ankle normal range of motion, bilateral ankle no evidence of injury Feet: bilateral foot non-tender, bilateral foot normal inspection, bilateral foot normal range of motion, bilateral foot no evidence of injury Neurologic/Psychiatric: tree 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-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 as tested, no motor/sensory deficits, alert, normal mood/affect, oriented x 3 Skin: normal color, warm/dry; No ecchymosis, No rash Lymphatic: no adenopathy (GERALDINE RICE) Progress/Results/Core Measures Results/Orders My Orders Orders - SAURABH GILL MD Hydrocodone/Apap 5/325 Tablet (Lortab 5 (05/07/22 22:30) Tibia/Fibula, Right, 2 Views (05/07/22 22:19) Crutches (05/07/22 23:10) (SAURABH GILL MD) Medications Given in ED Current Medications Medications Dose Ordered Sig/Paige Route Start Time Stop Time Status Last Admin Dose Admin Acetaminophen/ Hydrocodone Bitart 1 ea ONCE ONCE PO 05/07/22 22:30 05/07/22 22:33 DC 05/07/22 22:24 1 EA (SAURABH GILL MD) Vital Signs/I&O 05/07/22 05/07/22 20:47 23:41 Temp 36.7 Pulse 78 80 Resp 16 16 B/P (MAP) 133/90 (104) 135/86 Pulse Ox 100 100 O2 Delivery Room Air Room Air (SAURABH GILL MD) Blood Pressure Mean: 104 Progress Progress Note : Progress Note Patient was interviewed and examined by me along with MS 4. Achilles tendon appeared intact. Pain and tenderness was primarily in the mid calf region. Tib-fib x-ray was obtained to ensure no bony injury was being overlooked. X- rays were unremarkable. Pain was treated with hydrocodone. She was fitted with crutches. See discharge instructions for further discussion. (SAURABH GILL MD) Diagnostic Imaging Diagonstic Imaging: Xray Plain Films/CT/US/NM/MRI: leg Comments Right tib-fib x-rays viewed by me. Report not yet available. No acute injuries were identified. (SAURABH GILL MD) Departure Impression Primary Impression: Strain of right calf muscle Disposition: 01 HOME, SELF-CARE Condition: Improved Departure-Patient Inst. Decision time for Depature: 23:12 (SAURABH GILL MD) Referrals: MARLENE GALLEGOS MD (PCP/Family) Primary Care Physician Patient Instructions: Lower Extremity Muscle Strain, Muscle Strain ED Add. Discharge Instructions: You likely have a strain or partial tear to a calf muscle. This can be treated with rest, icing in 20-minute intervals, elevation, and a light compressive wrap. Use crutches to ambulate and gradually increase level of activity as pain allows. Stop any activity that worsens pain. For pain you may take ibuprofen up to 600 mg every 6 hours as needed. For additional pain relief you may add Tylenol (acetaminophen) up to 1000 mg every 6 hours as needed. Alternatively, for more severe pain, you may add hydrocodone as prescribed. If you take hydrocodone, please be advised it may cause drowsiness. Do not drive, operate machinery, or make important decisions while on hydrocodone. Hydrocodone may also cause constipation, so you may wish to take a stool softener while on hydrocodone. You should seek referral to an orthopedic provider for further evaluation. You may contact your primary care provider to help you with a referral or call the orthopedist directly. You should follow-up within 1 week. Contact information for Dr. Reyes and Dr. Gomez is listed below. Return to care if you have worsening symptoms despite following these instructions. All discharge instructions reviewed with patient and/or family. Voiced understanding. Scripts Hydrocodone/Acetaminophen (Hydrocodone-Acetamin 5-325 mg) 5 Mg-325 Mg Tablet 1 TAB PO Q4H PRN for PAIN RENETTATROUGH, #15 TAB Prov: SAURABH GILL MD 05/07/22 Medical Student Attestation and Attending Note: I have personally interviewed and examined this patient along with Geraldine Ortiz, MS4. I have reviewed student documentation including history, physical, and assessments. I agree with the documentation except where otherwise noted. Exam: General: Alert, oriented, mild acute distress, well developed HEENT: Normocephalic and atraumatic Lungs: No distress, normal effort Ext: Tenderness to the mid calf. Dorsiflexion and plantarflexion extremely limited secondary to pain. Sensation and pedal pulses intact. Achilles tendon intact. Neuropsych: Alert, oriented, no focal deficits Skin: Warm and dry without rashes (SAURABH GILL MD) Copy Copies To 1: MARLENE GALLEGOS MD, DAVID May 07, 2022 22:21 SAURABH GILL MD May 07, 2022 23:17
[2022-05-07] MEDS ORDERED: HYDROcodone/APAP 5 MG/325 MG (LORTAB) TAB PO ONE (22:30)
[2022-05-07] MEDS ORDERED: ACHD5005 PO (23:17)
[2022-05-07 23:41] VITALS: BP 135/86
--- NOTE | 2022-05-08 08:24 | Diagnostic Imaging Report ---
CLINICAL HISTORY: Right leg pain. COMPARISON: None. TECHNIQUE: 4 views of the right tibia and fibula. FINDINGS: There is no acute fracture or dislocation of the right tibia and fibula. Alignment is anatomic. The imaged joint spaces are preserved. No focal osseous lesions. IMPRESSION: 1. No acute fracture or dislocation in the right tibia and fibula. Dictated by: Dictated on workstation # [id number]
== END 2022-05-07 23:41 | disposition home or self-care (01) ==
LOC: EDUNIT# 20:43 → ER 20:45
DX: S86.911A Strain of unspecified muscle(s) and tendon(s) at lower leg level, right leg, initial encounter (principal); X50.1XXA Overexertion from prolonged static or awkward postures, initial encounter; Y93.41 Activity, dancing
CPT/HCPCS: 73590